=== PATIENT | female | born 1965 | race Caucasian/White ===

== ENCOUNTER 2019-10-23 10:26 | Emergency (ER) | payer OTHER ==
[2019-10-23 10:38] VITALS: BP 179/116; PULSE 94; O2SAT 100
[2019-10-23] MEDS ORDERED: Adacel Vial IM ONE ×2 (10:39→10:42)
--- NOTE | 2019-10-23 10:46 | ERPHSYRPT ---
- History of Present Illness Time Seen by Provider: 10/23/19 10:35 Source: patient Exam Limitations: no limitations Patient Subjective Stated Complaint: Pt was bit by a dog last night and injuring her left upper thigh on the posterior lateral side Triage Nursing Assessment: Pt brought self to the ER, raised bruised area is approx 7cm x 7cm with abrasions going through it, no puncture wounds are seen, pt rates overall pain as 5/10, no other issues at this time Physician History: Patient is a 54-year-old female presents to our ED for a tetanus booster. Patient states she was bitten by her dog at the proximal posterior lateral aspect of her left thigh. The dog had a collar however the patient was not familiar with the dog. Injury occurred yesterday evening. Patient is otherwise asymptomatic. She has some discomfort at the area of involvement. No bleeding occurred. No associated fever. No lower extremity numbness tingling or weakness. Symptoms are mild to moderate in intensity. Palpation reproduces s ymptoms. Patient is ambulatory with a normal gait pattern. Patient otherwise healthy. She voices no other complaints at this time. Timing/Duration: yesterday Severity: moderate Modifying Factors: Improves With: other (Palpation causes some discomfort.) Associated Symptoms: denies symptoms, No nausea, No vomiting, No abdominal pain, No shortness of breath, No heartburn, No diaphoresis, No cough, No chills, No chest pain, No fever, No headaches, No loss of appetite, No malaise, No syncope Allergies/Adverse Reactions: No Known Drug Allergies Allergy (Verified 10/23/19 10:38) Home Medications: Lisinopril 10 mg [Zestril 10 MG] 10 mg PO DAILY 10/23/19 [History] Omeprazole 20 mg PO DAILY 10/23/19 [History] Hx Tetanus, Diphtheria Vaccination/Date Given: Yes Hx Influenza Vaccination/Date Given: Yes Hx Pneumococcal Vaccination/Date Given: No Travel Risk - International Travel Have you traveled outside of the country in past 3 weeks: No - Coronavirus Screening Are you exhibiting any of the following symptoms?: No Close contact with a COVID-19 positive Pt in past 14-21 Days: No - Review of Systems Constitutional: No Symptoms, No Fever, No Chills Eyes: No Symptoms Ears, Nose, & Throat: No Symptoms Respiratory: No Symptoms, No Cough, No Dyspnea Cardiac: No Symptoms, No Chest Pain, No Edema, No Syncope Abdominal/Gastrointestinal: No Symptoms, No Abdominal Pain, No Nausea, No Vomiting, No Diarrhea Genitourinary Symptoms: No Symptoms, No Dysuria Musculoskeletal: No Symptoms, No Back Pain, No Neck Pain Skin: No Symptoms, No Rash Neurological: No Symptoms, No Dizziness, No Focal Weakness, No Sensory Changes Psychological: No Symptoms Endocrine: No Symptoms Hematologic/Lymphatic: No Symptoms Immunological/Allergic: No Symptoms All Other Systems: Reviewed and Negative - Past Medical History Pertinent Past Medical History: Yes Cardiac History: Hypertension - Past Surgical History Past Surgical History: Yes Gastrointestinal: Appendectomy - Social History Smoking Status: Current every day smoker Exposure to second hand smoke: Yes Drug Use: none Patient Lives Alone: Yes - Female History Hx Now: No - Nursing Vital Signs Nursing Vital Signs: Initial Vital Signs Pulse Rate 94 H 10/23/19 10:30 Blood Pressure 179/116 10/23/19 10:30 O2 Sat by Pulse Oximetry 100 10/23/19 10:30 Pain Scale Pain Intensity 5 - Physical Exam General Appearance: no apparent distress, alert Eye Exam: PERRL/EOMI, eyes nml inspection Ears, Nose, Throat Exam: normal ENT inspection, TMs normal, pharynx normal, moist mucous membranes Neck Exam: normal inspection, non-tender, supple, full range of motion Respiratory Exam: normal breath sounds, lungs clear, No respiratory distress Cardiovascular Exam: regular rate/rhythm, normal heart sounds, normal peripheral pulses Gastrointestinal/Abdomen Exam: soft, normal bowel sounds, No tenderness, No mass Back Exam: normal inspection, normal range of motion, No CVA tenderness, No vertebral tenderness Extremity Exam: normal inspection, normal range of motion, pelvis stable, other (Compartments are soft. Cap refill less than 2 seconds. There is a 7 x 7 cm bruise at the involved area. No puncture wounds. There are 3 superficial abrasions.) Neurologic Exam: alert, oriented x 3, cooperative, normal mood/affect, nml cerebellar function, nml station & gait, sensation nml, No motor deficits Skin Exam: normal color, warm, dry, No rash Lymphatic Exam: No adenopathy SpO2 Interpretation: normal SpO2: 100 O2 Delivery: Room Air - Course Nursing assessment & vital signs reviewed: Yes Ordered Tests: Medication Summary Discontinued Medications Generic Name Dose Route Start Last Admin Trade Name Freq PRN Reason Stop Dose Admin Diphtheria/Tetanus/Acell Pertussis 0.5 ml 10/23/19 10:39 10/23/19 10:42 Adacel Vial IM 10/23/19 10:40 0.5 ml .ONCE ONE Administration Diphtheria/Tetanus/Acell Pertussis Confirm 10/23/19 10:42 Adacel Vial Administered 10/23/19 10:43 Dose 0.5 ml IM .STK-MED ONE - Progress Progress: improved Progress Note: 10/23/19 10:47 Patient reassessed. She feels well. Patient declined pain medication. Patient only interested in a tetanus shot. We will write her a prescription for Augmentin in the event that she becomes symptomatic or develops signs of infection per patient request. Patient agrees to follow-up with her primary care doctor within 48 hours for reevaluation. Counseled pt/family regarding: diagnosis, need for follow-up - Departure Departure Disposition: Home Clinical Impression: Dog bite Condition: Stable Critical Care Time: No Referrals: ATUL HEREDIA MD [Primary Care Provider] - Additional Instructions: Discharge/Care Plan RO GILL was seen on 10/23/19 in the Emergency Room. The patient was counseled regarding Diagnosis,Lab results, Imaging studies, need for follow up and when to return to the Emergency Room. Prescriptions given: Discharge Note I have spoken with the patient and/or caregivers. I have explained the patient's condition, diagnosis and treatment plan based on the information available to me at this time. I have answered the patient's and/or caregiver's questions and addressed any concerns. The patient and/or caregivers have as good understanding of the patient's diagnosis, condition and treatment plan as can be expected at this point. The vital signs have been stable. The patient's condition is stable and appropriate for discharge from the emergency department. The patient will pursue further outpatient evaluation with the primary care physician or other designated or consulting physician as outlined in the discharge instructions. The patient and/or caregivers are agreeable to this plan of care and follow-up instructions have been explained in detail. The patient and/or caregivers have received these instruction. The patient/and or caregivers are aware that any significant change in condition or worsening of symptoms should prompt an immediate return to this or the closest emergency department or call 911.
== END 2019-10-23 11:07 | disposition home or self-care (01) ==
LOC: ED 10:26
DX: S70.312A Abrasion, left thigh, initial encounter (principal); S70.12XA Contusion of left thigh, initial encounter; W54.0XXA Bitten by dog, initial encounter; Y93.9 Activity, unspecified; Y92.9 Unspecified place or not applicable
CPT/HCPCS: 90471; 90715; 99283

== ENCOUNTER 2020-07-01 15:29 | Emergency (ER) | payer OTHER ==
[2020-07-01] MEDS ORDERED: TORAdol 30 mg Injection IM ONE (16:00)
[2020-07-01] MEDS ORDERED: TORAdol 30 mg Injection ONE (16:02)
[2020-07-01] MEDS ORDERED: DECADRON 10MG INJ. PO ONE (16:08)
[2020-07-01] MEDS ORDERED: DECADRON 10MG INJ. ONE (16:09)
--- NOTE | 2020-07-01 16:17 | ERPHSYRPT ---
- History of Present Illness Time Seen by Provider: 07/01/20 15:35 Source: patient Exam Limitations: no limitations Patient Subjective Stated Complaint: here for lower back 3 days now after twisitng the wrong way, she has tried tylenol , heat and cold Triage Nursing Assessment: pt alert, walked in, resp easy, skin w.d.p, gaurding back, no edema, Physician History: Patient is a 55-year-old female presents to our emergency department for evaluation of low back pain. Patient states she was turning down a mobile home 3 days ago when doing heavy lifting when she injured her back. Patient states her back's been sore. She has been applying cold pack to her back. Pain is not improved. Pain described as an ache that is localized. No radiation. No recent back procedures. No change in bowel bladder function. No fever. No saddle anesthesia. Symptoms are mild to moderate in intensity. Movement reproduces symptoms. Patient voices no other complaints or concerns at this time. Timing/Duration: day(s) (3 days ago) Method of Injury: bending, lifting, twisted Quality: dull Back Pain Location: lumbar spine Severity of Pain-Max: moderate Severity of Pain-Current: mild Modifying Factors: Improves With: movement Associated Symptoms: denies symptoms, No fever, No sweating, No urinary incontinence, No loss of bowel control, No constipation, No nausea, No vomiting, No problems urinating, No light-headedness, No dizziness, No numbness in legs/feet, No weakness, No sensory/motor loss Previous symptoms: no prior history Allergies/Adverse Reactions: No Known Drug Allergies Allergy (Verified 07/01/20 15:37) Home Medications: Lisinopril 10 mg [Zestril 10 MG] 10 mg PO DAILY 10/23/19 [History] Omeprazole 20 mg PO DAILY 10/23/19 [History] Bupropion HCl 150 mg Sr [Wellbutrin SR 150 MG] 1 ea DAILY 07/01/20 [History] Montelukast Sodium 10 mg [Singulair 10 MG] 10 mg PO DAILY 07/01/20 [History] Vits W-Ca,Fe,FA(<1Mg) [] 1 ea DAILY 07/01/20 [History] Terbinafine HCl [Lamisil] 1 ea DAILY 07/01/20 [History] Hx Tetanus, Diphtheria Vaccination/Date Given: No Hx Influenza Vaccination/Date Given: No Hx Pneumococcal Vaccination/Date Given: No Immunizations Up to Date: Yes Travel Risk - International Travel Have you traveled outside of the country in past 3 weeks: No - Coronavirus Screening Are you exhibiting any of the following symptoms?: No Close contact with a COVID-19 positive Pt in past 14-21 Days: No - Vaccine Status Have you recieved a Covid-19 vaccination: Yes [employer]: [employer] - Review of Systems Constitutional: No Symptoms, No Fever, No Chills Eyes: No Symptoms Ears, Nose, & Throat: No Symptoms Respiratory: No Symptoms, No Cough, No Dyspnea Cardiac: No Symptoms, No Chest Pain, No Edema, No Syncope Abdominal/Gastrointestinal: No Symptoms, No Abdominal Pain, No Nausea, No Vomiting, No Diarrhea Genitourinary Symptoms: No Symptoms, No Dysuria Musculoskeletal: No Symptoms, No Back Pain, No Neck Pain Skin: No Symptoms, No Rash Neurological: No Symptoms, No Dizziness, No Focal Weakness, No Sensory Changes Psychological: No Symptoms Endocrine: No Symptoms Hematologic/Lymphatic: No Symptoms Immunological/Allergic: No Symptoms All Other Systems: Reviewed and Negative - Past Medical History Pertinent Past Medical History: Yes Cardiac History: Hypertension Other Medical History: toe fungus - Past Surgical History Past Surgical History: Yes Gastrointestinal: Appendectomy - Social History Smoking Status: Current every day smoker Exposure to second hand smoke: Yes Drug Use: none Patient Lives Alone: Yes - Female History Hx Last Menstrual Period: may 30 Hx Now: No - Nursing Vital Signs Nursing Vital Signs: Initial Vital Signs Temperature 97.8 F 07/01/20 15:30 Pulse Rate 105 H 07/01/20 15:30 Respiratory Rate 14 07/01/20 15:30 Blood Pressure 138/95 07/01/20 15:30 O2 Sat by Pulse Oximetry 99 07/01/20 15:30 Pain Scale Pain Intensity [] 10 Pain Intensity 7 - Physical Exam General Appearance: no apparent distress, alert Eye Exam: PERRL/EOMI, eyes nml inspection Ears, Nose, Throat Exam: normal ENT inspection Neck Exam: normal inspection, non-tender, supple, full range of motion, No meningismus, No midline tenderness Respiratory Exam: normal breath sounds, lungs clear, No respiratory distress Cardiovascular Exam: regular rate/rhythm, normal heart sounds Gastrointestinal Exam: soft, No tenderness, No mass, No guarding, No rebound Extremity Exam: normal inspection, normal range of motion, No calf tenderness, No pedal edema Neurologic Exam: alert, oriented x 3, cooperative, director clinical data II-XII nml as tested, normal mood/affect, nml station & gait, sensation nml, No motor deficits Skin Exam: normal color, warm, dry, No rash SpO2 Interpretation: normal SpO2: 99 O2 Delivery: Room Air - Course Nursing assessment & vital signs reviewed: Yes - Radiology Exams L-Spine X-ray Interpretation: Teleradiologist Report (Yadi, degenerative disc disease, disc space loss) Ordered Tests: Active Orders 24 hr Category Date Time Status LUMBAR LIMITED (2 OR 3 VIEWS) Stat Exams 07/01/20 16:09 Completed CULTURE,URINE Stat Lab 07/01/20 16:45 Received UA W/RFX UR CULTURE Stat Lab 07/01/20 16:45 Completed Medication Summary Discontinued Medications Generic Name Dose Route Start Last Admin Trade Name Marcellus PRN Reason Stop Dose Admin Dexamethasone Sodium Phosphate 10 mg 07/01/20 16:08 07/01/20 16:10 Decadron 10mg Inj. PO 07/01/20 16:09 10 mg STAT ONE Administration Dexamethasone Sodium Phosphate Confirm 07/01/20 16:09 Decadron 10mg Inj. Administered 07/01/20 16:10 Dose 10 mg .ROUTE .STK-MED ONE Ketorolac Tromethamine 30 mg 07/01/20 16:00 07/01/20 16:02 Toradol 30 Mg Injection IM 07/01/20 16:01 30 mg STAT ONE Administration Ketorolac Tromethamine Confirm 07/01/20 16:02 Toradol 30 Mg Injection Administered 07/01/20 16:03 Dose 30 mg .ROUTE .STK-MED ONE Nitrofurantoin Macrocrystals 100 mg 07/01/20 17:22 Macrobid 100mg Capsule PO 07/01/20 17:23 STAT ONE Lab/Rad Data: Laboratory Results 07/01/20 Range/Units 16:45 Urine Color [place] (YELLOW) Urine Appearance CLOUDY (CLEAR) Urine pH 5.0 (5-6) Ur Specific [place] 1.033 (1.005-1.025) Urine Protein 100 (Negative) Urine Ketones NEGATIVE (NEGATIVE) Urine Blood LARGE (0-5) Leo/ul Urine Nitrite NEGATIVE (NEGATIVE) Urine Bilirubin MODERATE (NEGATIVE) Urine Urobilinogen 4 (0-1) mg/dL Ur Leukocyte Esterase TRACE (NEGATIVE) Urine WBC (Auto) 16-25 (0-5) /HPF Urine RBC (Auto) 26-50 (0-2) /HPF U Epithel Cells (Auto) MODERATE (FEW) /HPF Urine Bacteria (Auto) FEW (NEGATIVE) /HPF Urine Mucus (Auto) MANY (NEGATIVE) /HPF Urine Culture Reflexed YES (NO) Urine Glucose NEGATIVE (NEGATIVE) mg/dL - Progress Progress: improved Progress Note: 07/01/20 16:55 Patient reassessed. Pain improved. Vitals stable. X-ray lumbar spine negative for acute pathology. UA shows urinary tract infection. Prescription for Macrobid and Toradol forwarded to patient's pharmacy. Patient is ready for discharge. Will discharge home. Patient agrees to follow-up with her primary care doctor within 48 hours for reevaluation. 07/01/20 17:21 Counseled pt/family regarding: lab results, diagnosis, need for follow-up, rad results - Departure Departure Disposition: Home Clinical Impression: Lumbosacral strain, Osteopenia, Degenerative disc disease, UTI (urinary tract infection) Condition: Stable Critical Care Time: No Referrals: ATUL HEREDIA MD [Primary Care Provider] - Additional Instructions: Discharge/Care Plan RO GILL was seen on 07/01/20 in the Emergency Room. The patient was counseled regarding Diagnosis,Lab results, Imaging studies, need for follow up and when to return to the Emergency Room. Prescriptions given: Discharge Note I have spoken with the patient and/or caregivers. I have explained the patient's condition, diagnosis and treatment plan based on the information available to me at this time. I have answered the patient's and/or caregiver's questions and addressed any concerns. The patient and/or caregivers have as good understanding of the patient's diagnosis, condition and treatment plan as can be expected at this point. The vital signs have been stable. The patient's condition is stable and appropriate for discharge from the emergency department. The patient will pursue further outpatient evaluation with the primary care physician or other designated or consulting physician as outlined in the discharge instructions. The patient and/or caregivers are agreeable to this plan of care and follow-up instructions have been explained in detail. The patient and/or caregivers have received these instruction. The patient/and or caregivers are aware that any significant change in condition or worsening of symptoms should prompt an immediate return to this or the closest emergency department or call 911. Prescriptions: Nitrofurantoin Macro 100 mg [Macrobid 100MG Capsule] 100 mg PO BID 7 Days #14 capsule Ketorolac Tromethamine [Toradol] 10 mg PO TID 5 Days #15 tablet
[2020-07-01 16:28] VITALS: BP 133/95
--- NOTE | 2020-07-01 16:34 | XRAY ---
Indication: Low back pain 3 days. No known injury. Comparison: None 3 view lumbar spine demonstrates 5 lumbar segments in normal alignment with mild osteopenia and mild/moderate L1-L3 degenerative disc space loss with endplate sclerosis/spurring. No other bony, articular, or soft tissue abnormalities.
[2020-07-01 17:07] LABS: Appearance CLOUDY (CLEAR); Bacteria FEW /HPF (NEGATIVE); Bilirubin MODERATE (NEGATIVE); Blood LARGE Ery/ul (0-5); Epithelial Cells MODERATE /HPF (FEW); Glucose NEGATIVE (NEGATIVE); Ketones NEGATIVE (NEGATIVE); Leukocyte Esterase TRACE (NEGATIVE); Mucus MANY /HPF (NEGATIVE); Nitrite NEGATIVE (NEGATIVE); Protein,Urine Dip 100 (Negative); RBC 26-50 /HPF (0-2); Specific Gravity 1.033 (1.005-1.025); Urobilinogen 4 mg/dL (0-1)
[2020-07-01 17:08] VITALS: PULSE 74
[2020-07-01 17:13] VITALS: O2SAT 99
[2020-07-01] MEDS ORDERED: Macrobid 100MG Capsule PO ONE (17:22)
[2020-07-01] MEDS ORDERED: Macrobid 100MG Capsule ONE (17:29)
== END 2020-07-01 17:43 | disposition home or self-care (01) ==
LOC: ED 15:29
DX: S39.012A Strain of muscle, fascia and tendon of lower back, initial encounter (principal); M85.80 Other specified disorders of bone density and structure, unspecified site; M51.36 Other intervertebral disc degeneration, lumbar region; N39.0 Urinary tract infection, site not specified
CPT/HCPCS: 72100; 81001; 87086; 96372; 99284; J1100; J1885; A9270-GY

== ENCOUNTER 2020-07-03 05:35 | Inpatient (IN) | payer OTHER ==
--- NOTE | 2020-07-03 05:44 | ERPHSYRPT ---
- History of Present Illness Source: patient Exam Limitations: clinical condition Timing/Duration: today, worse Method of Injury: bending, lifting, twisted Quality: aching Back Pain Location: lumbar spine Severity of Pain-Max: moderate Severity of Pain-Current: moderate Modifying Factors: Improves With: movement Associated Symptoms: urinary incontinence, numbness in legs/feet, lower back pain, No sensory/motor loss, No tingling in legs/feet Previous symptoms: same symptoms as today, recently seen, recently treated Hx Tetanus, Diphtheria Vaccination/Date Given: No Hx Influenza Vaccination/Date Given: No Hx Pneumococcal Vaccination/Date Given: No <ZAKIYA STEIN - Last Filed: 07/03/20 06:56> <ASHLEY MAGAÑA - Last Filed: 07/03/20 09:23> - History of Present Illness Time Seen by Provider: 07/03/20 05:44 Physician History: This is a 55-year-old white female who has history of hypertension and gastroesophageal reflux disease and was seen yesterday (07/01/2020) for the same complaint of back pain. Patient was diagnosed with degenerative disc disease, lumbosacral pain and urinary tract infection. She was given a prescription for Macrobid and Toradol. She did not fill any of these medications. She has had back pain for 4 days now. The original injury was doing heavy lifting. This was performed 4 days ago. She describes it as a severe ache without radiation no recent back surgeries. Patient has no change in her bowel movements or bladder function. Lumbar x-rays were negative. She has not reinjured her back. Patient is a daily smoker of cigarettes. During her emergency room visit 24 hours ago, patient was given Toradol which helped her pain well. (ZAKIYA STEIN) Allergies/Adverse Reactions: No Known Drug Allergies Allergy (Verified 07/01/20 15:37) Home Medications: Lisinopril 10 mg [Zestril 10 MG] 10 mg PO DAILY 10/23/19 [History] Omeprazole 20 mg PO DAILY 10/23/19 [History] Bupropion HCl 150 mg Sr [Wellbutrin SR 150 MG] 1 ea DAILY 07/01/20 [History] Montelukast Sodium 10 mg [Singulair 10 MG] 10 mg PO DAILY 07/01/20 [History] Vits W-Ca,Fe,FA(<1Mg) [] 1 ea DAILY 07/01/20 [History] Terbinafine HCl [Lamisil] 1 ea DAILY 07/01/20 [History] Travel Risk - International Travel Have you traveled outside of the country in past 3 weeks: No - Coronavirus Screening Are you exhibiting any of the following symptoms?: No Close contact with a COVID-19 positive Pt in past 14-21 Days: No - Vaccine Status Have you recieved a Covid-19 vaccination: Yes Prn Occupational Therapist: [employer] <ZAKIYA STEIN - Last Filed: 07/03/20 06:56> - Review of Systems Constitutional: No Symptoms Eyes: No Symptoms Respiratory: No Symptoms Cardiac: No Symptoms Abdominal/Gastrointestinal: No Symptoms Genitourinary Symptoms: No Symptoms Musculoskeletal: Back Pain Skin: No Symptoms Neurological: No Symptoms Psychological: No Symptoms Endocrine: No Symptoms Hematologic/Lymphatic: No Symptoms Immunological/Allergic: No Symptoms All Other Systems: Reviewed and Negative <ZAKIYA STEIN - Last Filed: 07/03/20 06:56> - Past Medical History Pertinent Past Medical History: Yes Cardiac History: Hypertension Other Medical History: toe fungus - Past Surgical History Past Surgical History: Yes Gastrointestinal: Appendectomy - Social History Smoking Status: Current every day smoker Exposure to second hand smoke: Yes Drug Use: none Patient Lives Alone: Yes <ZAKIYA STEIN - Last Filed: 07/03/20 06:56> - Physical Exam General Appearance: moderate distress, alert, anxiety Eye Exam: PERRL/EOMI Ears, Nose, Throat Exam: normal ENT inspection, moist mucous membranes Neck Exam: normal inspection, non-tender, supple, full range of motion Respiratory Exam: normal breath sounds, lungs clear, airway intact, No chest tenderness, No respiratory distress Cardiovascular Exam: regular rate/rhythm, normal heart sounds, normal peripheral pulses Gastrointestinal Exam: soft, normal bowel sounds, No tenderness Pelvic Exam: not done Back Exam: normal inspection, decreased range of motion, muscle spasm, No CVA tenderness, No vertebral tenderness Extremity Exam: normal inspection, normal range of motion, pelvis stable Neurologic Exam: alert, oriented x 3, cooperative, network security engineer II-XII nml as tested Skin Exam: normal color, warm, dry Lymphatic Exam: No adenopathy SpO2 Interpretation: normal O2 Delivery: Room Air <ZAKIYA STEIN - Last Filed: 07/03/20 06:56> - Nursing Vital Signs Nursing Vital Signs: Initial Vital Signs Temperature 98.7 F 07/03/20 05:36 Pulse Rate 120 H 07/03/20 05:36 Respiratory Rate 16 07/03/20 05:36 Blood Pressure 158/93 07/03/20 05:36 O2 Sat by Pulse Oximetry 100 07/03/20 05:36 Pain Scale Pain Intensity [Lower Back] 10 Pain Intensity 0 Ordered Tests: Active Orders 24 hr Category Date Time Status IV Insertion STAT Care 07/03/20 05:53 Active ABDOMEN AND PELVIS W/0 CONTRAS [CT] Stat Exams 07/03/20 06:54 Taken BLOOD CULTURE Stat Lab 07/03/20 07:05 Received CBC W DIFF Stat Lab 07/03/20 05:45 Completed CMP Stat Lab 07/03/20 05:45 Completed LIPASE Stat Lab 07/03/20 05:45 Completed Lactic Acid Stat Lab 07/03/20 06:18 Completed Lactic Acid Stat Lab 07/03/20 08:30 Received Manual Differential NC Stat Lab 07/03/20 05:45 Completed Urine Triage Profile Stat Lab 07/03/20 07:54 Ordered Medication Summary Discontinued Medications Generic Name Dose Route Start Last Admin Trade Name Matiasq PRN Reason Stop Dose Admin Hydromorphone HCl 1 mg 07/03/20 05:53 07/03/20 06:06 Hydromorphone 1 Mg/Ml Injection IV 07/03/20 05:54 1 mg STAT ONE Administration Hydromorphone HCl Confirm 07/03/20 05:58 Hydromorphone 1 Mg/Ml Injection Administered 07/03/20 05:59 Dose 1 mg .ROUTE .STK-MED ONE Ceftriaxone Sodium/Dextrose 1 g in 50 mls @ 100 mls/hr 07/03/20 05:54 07/03/20 07:38 Rocephin 1 Gm-D5w 50 Ml Bag IV 07/03/20 06:23 Infused STAT STA Infusion Sodium Chloride 1,000 mls @ 999 mls/hr 07/03/20 06:00 07/03/20 07:38 Sodium Chloride 0.9% 1000 Ml IV 07/03/20 07:00 Infused .Q1H1M STA Infusion Sodium Chloride Confirm 07/03/20 05:58 Sodium Chloride 0.9% 1000 Ml Administered 07/03/20 05:59 Dose 1,000 mls @ ud .ROUTE .STK-MED ONE Ceftriaxone Sodium/Dextrose Confirm 07/03/20 05:59 Rocephin 1 Gm-D5w 50 Ml Bag Administered 07/03/20 06:00 Dose 1 g in 50 mls @ ud IV .STK-MED ONE Sodium Chloride 1,000 mls @ 999 mls/hr 07/03/20 06:53 07/03/20 08:53 Sodium Chloride 0.9% 1000 Ml IV 07/03/20 07:53 Infused .Q1H1M STA Infusion Sodium Chloride Confirm 07/03/20 07:31 Sodium Chloride 0.9% 1000 Ml Administered 07/03/20 07:32 Dose 1,000 mls @ ud .ROUTE .STK-MED ONE Methylprednisolone Sodium Succinate 125 mg 07/03/20 05:54 07/03/20 06:05 Solu-Medrol 125 Mg IV 07/03/20 05:55 125 mg STAT ONE Administration Methylprednisolone Sodium Succinate Confirm 07/03/20 05:58 Solu-Medrol 125 Mg Administered 07/03/20 05:59 Dose 125 mg .ROUTE .STK-MED ONE Ondansetron HCl 4 mg 07/03/20 05:53 07/03/20 06:05 Zofran 4 Mg/2 Ml Vial IV 07/03/20 05:54 4 mg STAT ONE Administration Ondansetron HCl Confirm 07/03/20 05:58 Zofran 4 Mg/2 Ml Vial Administered 07/03/20 05:59 Dose 4 mg .ROUTE .STK-MED ONE Lab/Rad Data: Laboratory Result Diagrams 07/03/20 05:45 07/03/20 05:45 Laboratory Results 07/03/20 07/03/20 07/03/20 Range/Units 06:18 05:45 05:45 WBC 17.2 H (4.0-10.5) K/mm3 RBC 5.52 H (4.1-5.4) M/mm3 Hgb 12.7 (12.0-16.0) gm/dl Hct 37.8 (35-47) % MCV 68.5 L (78-100) fl MCH 23.0 L (26-32) pg MCHC 33.6 (32-36) g/dl RDW 14.7 H (11.5-14.0) % Plt Count 77 L (150-450) K/mm3 MPV 10.4 (7.5-11.0) fl Segmented Neutrophils 90 H (36.0-66.0) % Band Neutrophils 6 H (0.0-2.0) % Lymphocytes (Manual) 1 L (24-44) % Monocytes (Manual) 3 (0.0-12.0) % Hypochromia 1+ Platelet Estimate DECREASED (NORMAL) RBC Morphology ABNORMAL Sodium 127 L (137-145) mmol/L Potassium 3.9 (3.5-5.1) mmol/L Chloride 93 L (98-107) mmol/L Carbon Dioxide 24 (22-30) mmol/L Anion Gap 13.8 (5-15) MEQ/L BUN 20 H (7-17) mg/dL Creatinine 0.77 (0.52-1.04) mg/dL Estimated GFR > 60.0 ML/MIN Glucose 135 H (74-106) mg/dL Lactic Acid 2.2 H (0.4-2.0) Calcium 9.8 (8.4-10.2) mg/dL Total Bilirubin 1.70 H (0.2-1.3) mg/dL AST 67 H (14-36) U/L ALT 55 H (0-35) U/L Alkaline Phosphatase 338 H (38-126) U/L Serum Total Protein 6.2 L (6.3-8.2) g/dL Albumin 3.1 L (3.5-5.0) g/dL Lipase 13 L (23-300) U/L - Progress Progress: improved, pain not gone completely, re-examined Counseled pt/family regarding: lab results, diagnosis, need for follow-up <ZAKIYA STEIN - Last Filed: 07/03/20 06:56> - Progress Counseled pt/family regarding: rad results <ASHLEY MAGAÑA - Last Filed: 07/03/20 09:23> - Progress Progress Note: 07/03/20 06:25 Patient stated that this episode of pain began approximately 5 PM yesterday which was 13 hours before she returned to the emergency department. She also did not supervisor picking crew her prescriptions. The reason she gave her both was that she did not have a ride until this morning. Patient denies illicit drug use. 07/03/20 06:56 Patient states her back pain has improved. She is more comfortable. Patient's mouth is very dry she has an elevated lactic acid level. She has some elevated liver function test. She has bilateral flank pain. I will hydrate her well with a second liter of fluid. We will check a hepatitis panel and do a CAT scan of her abdomen as well. I am signing this patient out in transferring the care of this patient to Dr. Magaña at shift change. I have reviewed the patient's condition, pending lab and x-ray studies with him. (ZAKIYA STEIN) 07/03/20 09:20 Patient is checked out to me at shift change from Dr. Stein with pending CT. Patient presented with Bilateral flank pain/low back pain. Does not have any midline tenderness on my evaluation. Negative neuro exam in lower extremities. Patient does have documented UTI on yesterday's evaluation and has a white count of 17, given a dose of Rocephin Patient chemistry profile showed mild hyponatremia and mildly elevated liver enzymes. CT abdomen pelvis without contrast is negative for any acute intra- abdominal findings. With her pain in the bilateral flank and UTI I believe patient is having ascending urinary tract infection and would benefit with IV antibiotics and fluids and symptomatic treatment for pain. Discussed with and patient is accepted for admission. (ASHLEY MAGAÑA) - Departure Departure Disposition: Home Critical Care Time: No <ZAKIYA STEIN - Last Filed: 07/03/20 06:56> - Departure Departure Disposition: Observation <ASHLEY MAGAÑA - Last Filed: 07/03/20 09:23> - Departure Clinical Impression: Recurrent low back pain, Acute UTI (urinary tract infection), Hyponatremia, Elevated transaminase level Condition: Stable Referrals: ATUL HEREDIA MD [Primary Care Provider] - Additional Instructions: Go to your pharmacy this morning and supervisor picking crew your Toradol and nitrofurantoin prescriptions. Follow-up with the primary care physician for further management of your chronic back pain.
[2020-07-03] MEDS ORDERED: Zofran 4 MG/2 ML VIAL IV ONE (05:53)
[2020-07-03] MEDS ORDERED: Hydromorphone 1 mg/ml Injection IV ONE (05:53)
[2020-07-03] MEDS ORDERED: ROCEPHIN 1 Gm-D5w 50 ml Bag** 1 G/50 ML IVPB IV STA (05:54)
[2020-07-03] MEDS ORDERED: solu-MEDROL 125 MG IV ONE (05:54)
[2020-07-03] MEDS ORDERED: Hydromorphone 1 mg/ml Injection ONE (05:58)
[2020-07-03] MEDS ORDERED: Sodium Chloride 0.9% 1000 ML 1,000 ML ONE ×2 (05:58→07:31)
[2020-07-03] MEDS ORDERED: solu-MEDROL 125 MG ONE (05:58)
[2020-07-03] MEDS ORDERED: Zofran 4 MG/2 ML VIAL ONE (05:58)
[2020-07-03] MEDS ORDERED: ROCEPHIN 1 Gm-D5w 50 ml Bag** 1 G/50 ML IVPB IV ONE (05:59)
[2020-07-03] MEDS ORDERED: Sodium Chloride 0.9% 1000 ML 1,000 ML IV STA ×2 (06:00→06:53)
[2020-07-03 06:10] LABS: Hematocrit 37.8 % (35-47); Hemoglobin 12.7 gm/dl (12.0-16.0); Mean Cell Volume 68.5 fl (78-100); Mean Corpuscular Hgb Concent. 33.6 g/dl (32-36); Mean Platelet Volume 10.4 fl (7.5-11.0); Platelet Count 77 K/mm3 (150-450); Red Blood Count 5.52 M/mm3 (4.1-5.4); Red Cell Distribution Width 14.7 % (11.5-14.0); White Blood Count 17.2 K/mm3 (4.0-10.5)
[2020-07-03 06:17] LABS: ALBUMIN 3.1 g/dL (3.5-5.0); ALKALINE PHOSPHATASE 338 U/L (38-126); ANION GAP 13.8 MEQ/L (5-15); BLOOD UREA NITROGEN 20 mg/dL (7-17); CHLORIDE 93 mmol/L (98-107); Calcium 9.8 mg/dL (8.4-10.2); Carbon Dioxide 24 mmol/L (22-30); Creatinine 1 0.77 mg/dL (0.52-1.04); EST GLOMERULAR FILTRATION RATE > 60.0 ML/MIN; Glucose 135 mg/dL (74-106); LIPASE 13 U/L (23-300); Potassium 3.9 mmol/L (3.5-5.1); SGOT/AST 67 U/L (14-36); SGPT/ALT 55 U/L (0-35); SODIUM 127 mmol/L (137-145); Total Protein 6.2 g/dL (6.3-8.2)
[2020-07-03 06:38] LABS: BAND 6 % (0.0-2.0); Hypochromia 1+; Lymphocytes 1 % (24-44); Monocyte 3 % (0.0-12.0); Neutrophils 90 % (36.0-66.0); Platelet Estimate DECREASED (NORMAL); Total Cells Counted 100
[2020-07-03 09:23] LABS: Amphetamine,Urine POSITIVE (NEGATIVE); Barbiturate,Urine NEGATIVE (NEGATIVE); Benzodiazepine,Urine NEGATIVE (NEGATIVE); Cocaine,Urine NEGATIVE (NEGATIVE); Methadone,Urine NEGATIVE (NEGATIVE); Opiate,Urine POSITIVE (NEGATIVE); PCP,Urine NEGATIVE (NEGATIVE); THC,Urine NEGATIVE (NEGATIVE)
[2020-07-03 10:42] LABS: INFLUENZA A NEGATIVE (NEGATIVE); INFLUENZA B NEGATIVE (NEGATIVE); RESPIRATORY SYNCTIAL VIRUS NEGATIVE (Negative)
[2020-07-03] MEDS ORDERED: Zofran 4 MG/2 ML VIAL IV PRN (11:25)
[2020-07-03] MEDS ORDERED: PROTONIX 40 MG IV IV SCH (11:25)
[2020-07-03] MEDS ORDERED: DUONEB 0.5-3 MG/3 ml Neb IH PRN (11:25)
--- NOTE | 2020-07-03 12:18 | XRAY ---
Indication: Low back and bilateral flank pain. Multiple contiguous axial images obtained through the abdomen and pelvis without contrast using renal stone protocol. Comparison: July 04, 2017. Lung bases again demonstrates bibasilar dependent atelectasis and lingula calcified granuloma. Heart is not enlarged. Several images slightly degraded by respiration artifact. No renal calculus or evidence for obstructive uropathy in either system. Noncontrasted stomach and bowel loops appear nonobstructed. Appendectomy reported. No free fluid/air. Remaining liver, gallbladder, pancreas, spleen, adrenal glands, kidneys, ureters, bladder, uterus, and aorta appear unremarkable for noncontrast exam. Osseous structures intact with progressive worsening mild/moderate T12-L3 degenerative disc disease. Impression: 1. Respiration artifact. 2. Negative renal calculus or evidence for obstructive uropathy. 3. No new/acute intra-abdominal/pelvic abnormalities on this noncontrast exam. Comment: Preliminary interpretation was made by [facility]. No critical discrepancy.
[2020-07-03] MEDS: Sodium Chloride 0.9% 1000 ML 1,000 ML IV SCH ×2 (12:42→20:27)
[2020-07-03] MEDS: ROCEPHIN 1 Gm-D5w 50 ml Bag** 1 G/50 ML IVPB IV SCH (12:49)
[2020-07-03] MEDS ORDERED: VENTOLIN COMMON CANISTER IH PRN (14:24)
[2020-07-03] MEDS: TYLENOL 325 MG PO PRN ×2 (17:07→21:44)
[2020-07-03] MEDS: MORPHINE SULFATE 2 MG INJ IV PRN (22:40)
[2020-07-04] MEDS ORDERED: MOTRIN 400 MG PO ONE
[2020-07-04] MEDS: Sodium Chloride 0.9% 1000 ML 1,000 ML IV SCH ×3 (03:44→21:01)
[2020-07-04 06:08] LABS: Hematocrit 33.6 % (35-47); Hemoglobin 11.3 gm/dl (12.0-16.0); Mean Corpuscular Hemoglobin 23.2 pg (26-32); Mean Corpuscular Hgb Concent. 33.6 g/dl (32-36); Red Blood Count 4.87 M/mm3 (4.1-5.4); Red Cell Distribution Width 14.9 % (11.5-14.0); White Blood Count 23.5 K/mm3 (4.0-10.5)
[2020-07-04 06:21] LABS: ALBUMIN 2.4 g/dL (3.5-5.0); ALKALINE PHOSPHATASE 240 U/L (38-126); BLOOD UREA NITROGEN 27 mg/dL (7-17); CHLORIDE 100 mmol/L (98-107); Calcium 8.8 mg/dL (8.4-10.2); Carbon Dioxide 22 mmol/L (22-30); Creatinine 1 0.62 mg/dL (0.52-1.04); EST GLOMERULAR FILTRATION RATE > 60.0 ML/MIN; Glucose 138 mg/dL (74-106); SGOT/AST 51 U/L (14-36); SGPT/ALT 41 U/L (0-35); SODIUM 126 mmol/L (137-145); Total Protein 5.1 g/dL (6.3-8.2)
[2020-07-04 06:23] LABS: Potassium 3.9 mmol/L (3.5-5.1)
[2020-07-04 06:27] LABS: ANION GAP 7.9 MEQ/L (5-15)
[2020-07-04 08:00] LABS: Platelet Count 37 K/mm3 (150-450)
[2020-07-04 08:04] LABS: BAND 7 % (0.0-2.0); Lymphocytes 4 % (24-44); Monocyte 7 % (0.0-12.0); Neutrophils 82 % (36.0-66.0); Platelet Estimate DECREASED (NORMAL); Total Cells Counted 100
[2020-07-04 08:05] LABS: Hypochromia 1+
--- NOTE | 2020-07-04 08:25 | PCM.HP ---
History of Present Illness - Chief Complaint Chief Complaint: back pain for 3-4 days History of Present Illness: is a 55 year old female.who has history of hypertension and gastroesophageal reflux disease and was seen yesterday (07/01/2020) for the same complaint of back pain. Patient was diagnosed with degenerative disc disease, lumbosacral pain and urinary tract infection. She was given a prescription for Macrobid and Toradol. She did not fill any of these medications. She has had back pain for 4 days now. The original injury was doing heavy lifting. This was performed 4 days ago. She describes it as a severe ache without radiation no recent back surgeries. Patient has no change in her bowel movements or bladder function. Lumbar x-rays were negative. She has not reinjured her back. Patient is a daily smoker of cigarettes. During her emergency room visit 24 hours ago, patient was given Toradol which helped her pain well. - Review of Systems Constitutional: No Fever, No Chills Eyes: No Symptoms Ears, Nose, & Throat: No Symptoms Respiratory: No Cough, No Short Of Breath Cardiac: No Chest Pain, No Edema, No Syncope Abdominal/Gastrointestinal: No Abdominal Pain, No Nausea, No Vomiting, No Diarrhea Genitourinary Symptoms: Dysuria Musculoskeletal: Back Pain, No Neck Pain Skin: No Rash Neurological: No Dizziness, No Focal Weakness, No Sensory Changes Psychological: No Symptoms Endocrine: No Symptoms Hematologic/Lymphatic: No Symptoms Immunological/Allergic: No Symptoms Medications & Allergies Home Medications: Home Medication List Lisinopril 10 mg [Zestril 10 MG] 10 mg PO DAILY 10/23/19 [History Confirmed 07/03/20] Omeprazole 20 mg PO DAILY 10/23/19 [History Confirmed 07/03/20] Bupropion HCl 150 mg Sr [Wellbutrin SR 150 MG] 1 ea PO DAILY 07/01/20 [History Confirmed 07/03/20] Ketorolac Tromethamine [Toradol] 10 mg PO TID 5 Days #15 tablet 07/01/20 [Rx Confirmed 07/03/20] Montelukast Sodium 10 mg [Singulair 10 MG] 10 mg PO DAILY 07/01/20 [History Confirmed 07/03/20] Nitrofurantoin Macro 100 mg [Macrobid 100MG Capsule] 100 mg PO BID 7 Days #14 capsule 07/01/20 [Rx Confirmed 07/03/20] Vits W-Ca,Fe,FA(<1Mg) [] 1 ea PO DAILY 07/01/20 [History Confirmed 07/03/20] Terbinafine HCl [Lamisil] 1 ea PO DAILY 07/01/20 [History Confirmed 07/03/20] Allergies/Adverse Reactions: Allergies Allergy/AdvReac Type Severity Reaction Status Date / Time No Known Drug Allergies Allergy Verified 07/01/20 15:37 - Past Medical History Past Medical History: Yes Neurological History: No Pertinent History ENT History: No Pertinent History Cardiac History: Hypertension Respiratory History: COPD Endocrine Medical History: No Pertinent History Musculoskelatal History: Other GI Medical History: GERD History: No Pertinent History Pyscho-Social History: Other Reproductive Disorders: Menstrual Problems, Other Comment: toe fungus. HX of dislocated L shoulder. "large mood swings and can be combative", reported pt's mother. Anemia. STD. - Female History Are you now?: No - Past Surgical History Past Surgical History: Yes GI Surgical History: Appendectomy Female Surgical History: Other Other Surgical History: ovarectomy times one. - Social History Smoking Status: Current every day smoker Exposure to second hand smoke: Yes Alcohol: None Drug Use: none - Physical Exam Vital Signs: Vital Signs - 24 hr Temp Pulse Resp BP Pulse Ox 07/04/20 07:52 97.8 F 90 30 H 142/86 96 07/04/20 06:45 87 16 99 07/03/20 23:35 98.1 F 95 H 20 142/78 100 07/03/20 19:38 84 18 97 07/03/20 19:27 98.8 F 103 H 18 120/76 98 07/03/20 16:00 99.6 F 108 H 16 132/80 98 07/03/20 13:00 101 H 16 97 07/03/20 11:59 98.2 F 102 H 16 119/79 97 07/03/20 11:35 98.2 F 102 H 16 119/79 97 07/03/20 10:29 102 H 18 131/96 97 07/03/20 09:32 110 H 18 136/77 95 07/03/20 08:30 107 H 20 115/71 94 L General Appearance: no apparent distress, alert Neurologic Exam: alert, oriented x 3, cooperative, normal mood/affect, nml cerebellar function, nml station & gait, sensation nml, No motor deficits Eye Exam: PERRL/EOMI, eyes nml inspection Ears, Nose, Throat Exam: normal ENT inspection, TMs normal, pharynx normal, moist mucous membranes Neck Exam: normal inspection, non-tender, supple, full range of motion Respiratory Exam: normal breath sounds, lungs clear, No respiratory distress Cardiovascular Exam: regular rate/rhythm, normal heart sounds, normal peripheral pulses Gastrointestinal/Abdomen Exam: soft, normal bowel sounds, No tenderness, No mass Back Exam: normal inspection, normal range of motion, CVA tenderness, muscle spasm, No vertebral tenderness, No point tenderness Extremity Exam: normal inspection, normal range of motion, pelvis stable Skin Exam: normal color, warm, dry, No rash Lymphatic Exam: No adenopathy Results - Labs Lab/Micro Results: Lab Results-Last 24 Hours 07/03/20 07/03/20 07/03/20 Range/Units 05:47 08:30 09:00 WBC (4.0-10.5) K/mm3 RBC (4.1-5.4) M/mm3 Hgb (12.0-16.0) gm/dl Hct (35-47) % MCV (78-100) fl MCH (26-32) pg MCHC (32-36) g/dl RDW (11.5-14.0) % Plt Count (150-450) K/mm3 Segmented Neutrophils (36.0-66.0) % Band Neutrophils (0.0-2.0) % Lymphocytes (Manual) (24-44) % Monocytes (Manual) (0.0-12.0) % Hypochromia Platelet Estimate (NORMAL) RBC Morphology Sodium (137-145) mmol/L Potassium (3.5-5.1) mmol/L Chloride (98-107) mmol/L Carbon Dioxide (22-30) mmol/L Anion Gap (5-15) MEQ/L BUN (7-17) mg/dL Creatinine (0.52-1.04) mg/dL Estimated GFR ML/MIN Glucose (74-106) mg/dL Lactic Acid 0.7 (0.4-2.0) Calcium (8.4-10.2) mg/dL Total Bilirubin (0.2-1.3) mg/dL AST (14-36) U/L ALT (0-35) U/L Alkaline Phosphatase (38-126) U/L Serum Total Protein (6.3-8.2) g/dL Albumin (3.5-5.0) g/dL Urine Opiates Level POSITIVE (NEGATIVE) Ur Methadone NEGATIVE (NEGATIVE) Acetaminophen < 10 L (10-30) ug/ml Urine Barbiturates NEGATIVE (NEGATIVE) Ur Phencyclidine (PCP) NEGATIVE (NEGATIVE) Urine Amphetamine POSITIVE (NEGATIVE) U Benzodiazepine Level NEGATIVE (NEGATIVE) Urine Cocaine NEGATIVE (NEGATIVE) Urine Marijuana (THC) NEGATIVE (NEGATIVE) Influenza Type A Ag (NEGATIVE) Influenza Type B Ag (NEGATIVE) RSV (PCR) (Negative) SARS-CoV-2 (PCR) (NEGATIVE) 07/03/20 07/04/20 07/04/20 Range/Units 10:01 05:50 05:50 WBC 23.5 H (4.0-10.5) K/mm3 RBC 4.87 (4.1-5.4) M/mm3 Hgb 11.3 L (12.0-16.0) gm/dl Hct 33.6 L (35-47) % MCV 69.0 L (78-100) fl MCH 23.2 L (26-32) pg MCHC 33.6 (32-36) g/dl RDW 14.9 H (11.5-14.0) % Plt Count 37 L D (150-450) K/mm3 Segmented Neutrophils 82 H (36.0-66.0) % Band Neutrophils 7 H (0.0-2.0) % Lymphocytes (Manual) 4 L (24-44) % Monocytes (Manual) 7 (0.0-12.0) % Hypochromia 1+ Platelet Estimate DECREASED (NORMAL) RBC Morphology ABNORMAL Sodium 126 L (137-145) mmol/L Potassium 3.9 (3.5-5.1) mmol/L Chloride 100 (98-107) mmol/L Carbon Dioxide 22 (22-30) mmol/L Anion Gap 7.9 (5-15) MEQ/L BUN 27 H (7-17) mg/dL Creatinine 0.62 (0.52-1.04) mg/dL Estimated GFR > 60.0 ML/MIN Glucose 138 H (74-106) mg/dL Lactic Acid (0.4-2.0) Calcium 8.8 (8.4-10.2) mg/dL Total Bilirubin 0.80 (0.2-1.3) mg/dL AST 51 H (14-36) U/L ALT 41 H (0-35) U/L Alkaline Phosphatase 240 H (38-126) U/L Serum Total Protein 5.1 L (6.3-8.2) g/dL Albumin 2.4 L (3.5-5.0) g/dL Urine Opiates Level (NEGATIVE) Ur Methadone (NEGATIVE) Acetaminophen (10-30) ug/ml Urine Barbiturates (NEGATIVE) Ur Phencyclidine (PCP) (NEGATIVE) Urine Amphetamine (NEGATIVE) U Benzodiazepine Level (NEGATIVE) Urine Cocaine (NEGATIVE) Urine Marijuana (THC) (NEGATIVE) Influenza Type A Ag NEGATIVE (NEGATIVE) Influenza Type B Ag NEGATIVE (NEGATIVE) RSV (PCR) NEGATIVE (Negative) SARS-CoV-2 (PCR) NEGATIVE (NEGATIVE) Microbiology 07/03/20 07:25 Blood Culture Gram Stain - Final Blood 07/03/20 07:05 Blood Culture - Preliminary Blood NO GROWTH TO DATE - Radiology Impressions Radiology Exams & Impressions: Radiology Procedures Category Date Time Status ABDOMEN AND PELVIS W/0 CONTRAS [CT] Stat Exams 07/03/20 06:[address]/ABDOMEN AND PELVIS W/0 CONTRAS Indication: Low back and bilateral flank pain. Multiple contiguous axial images obtained through the abdomen and pelvis without contrast using renal stone protocol. Comparison: July 04, 2017. Lung bases again demonstrates bibasilar dependent atelectasis and lingula calcified granuloma. Heart is not enlarged. Several images slightly degraded by respiration artifact. No renal calculus or evidence for obstructive uropathy in either system. Noncontrasted stomach and bowel loops appear nonobstructed. Appendectomy reported. No free fluid/air. Remaining liver, gallbladder, pancreas, spleen, adrenal glands, kidneys, ureters, bladder, uterus, and aorta appear unremarkable for noncontrast exam. Osseous structures intact with progressive worsening mild/moderate T12-L3 degenerative disc disease. Impression: 1. Respiration artifact. 2. Negative renal calculus or evidence for obstructive uropathy. 3. No new/acute intra-abdominal/pelvic abnormalities on this noncontrast exam. - Other Procedures and Tests Respiratory Therapy 07/03/20 14:26 Respiratory Therapy Assessment DAILY Assessment/Plan (1) Acute UTI (urinary tract infection) Current Visit: Yes Status: Acute Assessment & Plan: Chief Complaint Diagnosis UTI. hyponatremia Allergies Allergy/AdvReac Type Severity Reaction Status Date / Time No Known Drug Allergies Allergy Verified 07/01/20 15:37 Vital Signs (Last 24 hours) Temp Pulse Resp BP Pulse Ox 07/04/20 07:52 97.8 F 90 30 H 142/86 96 07/04/20 06:45 87 16 99 07/03/20 23:35 98.1 F 95 H 20 142/78 100 07/03/20 19:38 84 18 97 07/03/20 19:27 98.8 F 103 H 18 120/76 98 07/03/20 16:00 99.6 F 108 H 16 132/80 98 07/03/20 13:00 101 H 16 97 07/03/20 11:59 98.2 F 102 H 16 119/79 97 07/03/20 11:35 98.2 F 102 H 16 119/79 97 07/03/20 10:29 102 H 18 131/96 97 07/03/20 09:32 110 H 18 136/77 95 07/03/20 08:30 107 H 20 115/71 94 L Current Medications Generic Name Dose Route Start Last Admin Trade Name Freq PRN Reason Stop Dose Admin Acetaminophen 650 mg 07/03/20 11:25 07/03/20 21:44 Tylenol 325 Mg PO 08/02/20 11:24 650 mg Q4H PRN PRN Administration PAIN AND/OR FEVER Albuterol Sulfate 2 puff 07/03/20 14:24 Ventolin Common Canister IH 08/02/20 14:23 Q4H PRN PRN SHORTNESS OF BREATH/WHEEZING Sodium Chloride 1,000 mls @ 125 mls/hr 07/03/20 11:25 07/04/20 03:44 Sodium Chloride 0.9% 1000 Ml IV 08/02/20 11:24 125 mls/hr .Q8H SELENE Administration Ceftriaxone Sodium/Dextrose 1 g in 50 mls @ 100 mls/hr 07/03/20 11:25 07/03/20 12:49 Rocephin 1 Gm-D5w 50 Ml Bag IV 07/06/20 11:24 Not Given Q24H10 SELENE Morphine Sulfate 2 mg 07/03/20 11:25 07/03/20 22:40 Morphine Sulfate 2 Mg Inj IV 07/08/20 11:24 2 mg Q4H PRN PRN Administration PAIN Ondansetron HCl 4 mg 07/03/20 11:25 Zofran 4 Mg/2 Ml Vial IV 08/02/20 11:24 Q6H PRN PRN NAUSEA/VOMITING Pantoprazole Sodium 40 mg 07/03/20 11:25 07/03/20 12:49 Protonix 40 Mg Iv IV 08/02/20 11:24 40 mg Q24H10 SELENE Administration Discontinued Medications Generic Name Dose Route Start Last Admin Trade Name Freq PRN Reason Stop Dose Admin Albuterol/Ipratropium 3 ml 07/03/20 11:25 Duoneb 0.5-3 Mg/3 Ml Neb IH 08/02/20 11:24 Q4HPRN PRN SHORTNESS OF BREATH/WHEEZING Hydromorphone HCl 1 mg 07/03/20 05:53 07/03/20 06:06 Hydromorphone 1 Mg/Ml Injection IV 07/03/20 05:54 1 mg STAT ONE Administration Hydromorphone HCl Confirm 07/03/20 05:58 Hydromorphone 1 Mg/Ml Injection Administered 07/03/20 05:59 Dose 1 mg .ROUTE .STK-MED ONE Ceftriaxone Sodium/Dextrose 1 g in 50 mls @ 100 mls/hr 07/03/20 05:54 04 07:38 Rocephin 1 Gm-D5w 50 Ml Bag IV 07/03/20 06:23 Infused STAT STA Infusion Sodium Chloride 1,000 mls @ 999 mls/hr 07/03/20 06:00 07/03/20 07:38 Sodium Chloride 0.9% 1000 Ml IV 07/03/20 07:00 Infused .Q1H1M STA Infusion Sodium Chloride Confirm 07/03/20 05:58 Sodium Chloride 0.9% 1000 Ml Administered 07/03/20 05:59 Dose 1,000 mls @ ud .ROUTE .STK-MED ONE Ceftriaxone Sodium/Dextrose Confirm 07/03/20 05:59 Rocephin 1 Gm-D5w 50 Ml Bag Administered 07/03/20 06:00 Dose 1 g in 50 mls @ ud IV .STK-MED ONE Sodium Chloride 1,000 mls @ 999 mls/hr 07/03/20 06:53 07/03/20 08:53 Sodium Chloride 0.9% 1000 Ml IV 07/03/20 07:53 Infused .Q1H1M STA Infusion Sodium Chloride Confirm 07/03/20 07:31 Sodium Chloride 0.9% 1000 Ml Administered 07/03/20 07:32 Dose 1,000 mls @ ud .ROUTE .STK-MED ONE Ibuprofen 400 mg 07/04/20 00:00 07/03/20 23:23 Motrin 400 Mg PO 07/04/20 00:01 400 mg ONCE ONE Administration Methylprednisolone Sodium Succinate 125 mg 07/03/20 05:54 07/03/20 06:05 Solu-Medrol 125 Mg IV 07/03/20 05:55 125 mg STAT ONE Administration Methylprednisolone Sodium Succinate Confirm 07/03/20 05:58 Solu-Medrol 125 Mg Administered 07/03/20 05:59 Dose 125 mg .ROUTE .STK-MED ONE Ondansetron HCl 4 mg 07/03/20 05:53 07/03/20 06:05 Zofran 4 Mg/2 Ml Vial IV 07/03/20 05:54 4 mg STAT ONE Administration Ondansetron HCl Confirm 07/03/20 05:58 Zofran 4 Mg/2 Ml Vial Administered 07/03/20 05:59 Dose 4 mg .ROUTE .STK-MED ONE Intake & Output (Last 24 hours) 07/01/20 07/02/20 07/03/20 07/04/20 11:59 11:59 11:59 11:59 Intake Total 2103 Output Total 1000 Balance 1103 Weight 55.6 kg Microbiology Results (Last 24 hours) 07/03/20 07:25 Blood Blood Culture Gram Stain - Final 07/03/20 07:25 Blood Blood Culture - Pending 07/03/20 07:05 Blood Blood Culture Gram Stain - Pending 07/03/20 07:05 Blood Blood Culture - Preliminary NO GROWTH TO DATE Laboratory Results (Last 24 hours) 07/04/20 07/04/20 07/03/20 05:50 05:50 10:01 WBC 23.5 H RBC 4.87 Hgb 11.3 L Hct 33.6 L MCV 69.0 L MCH 23.2 L MCHC 33.6 RDW 14.9 H Plt Count 37 L D Segmented Neutrophils 82 H Band Neutrophils 7 H Lymphocytes (Manual) 4 L Monocytes (Manual) 7 Hypochromia 1+ Platelet Estimate DECREASED RBC Morphology ABNORMAL Sodium 126 L Potassium 3.9 Chloride 100 Carbon Dioxide 22 Anion Gap 7.9 BUN 27 H Creatinine 0.62 Estimated GFR > 60.0 Glucose 138 H Lactic Acid Calcium 8.8 Total Bilirubin 0.80 AST 51 H ALT 41 H Alkaline Phosphatase 240 H Serum Total Protein 5.1 L Albumin 2.4 L Urine Opiates Level Ur Methadone Acetaminophen Urine Barbiturates Ur Phencyclidine (PCP) Urine Amphetamine U Benzodiazepine Level Urine Cocaine Urine Marijuana (THC) Influenza Type A Ag NEGATIVE Influenza Type B Ag NEGATIVE RSV (PCR) NEGATIVE SARS-CoV-2 (PCR) NEGATIVE 07/03/20 07/03/20 07/03/20 09:00 08:30 05:47 WBC RBC Hgb Hct MCV MCH MCHC RDW Plt Count Segmented Neutrophils Band Neutrophils Lymphocytes (Manual) Monocytes (Manual) Hypochromia Platelet Estimate RBC Morphology Sodium Potassium Chloride Carbon Dioxide Anion Gap BUN Creatinine Estimated GFR Glucose Lactic Acid 0.7 Calcium Total Bilirubin AST ALT Alkaline Phosphatase Serum Total Protein Albumin Urine Opiates Level POSITIVE Ur Methadone NEGATIVE Acetaminophen < 10 L Urine Barbiturates NEGATIVE Ur Phencyclidine (PCP) NEGATIVE Urine Amphetamine POSITIVE U Benzodiazepine Level NEGATIVE Urine Cocaine NEGATIVE Urine Marijuana (THC) NEGATIVE Influenza Type A Ag Influenza Type B Ag RSV (PCR) SARS-CoV-2 (PCR) Orders (Last 24 hours) Category Date Time Status Up With Assistance ROUTINE Activity 07/03/20 11:25 Active Code Status Order ROUTINE Care 07/03/20 11:25 Active Fall Protocol Q1H Care 07/03/20 11:25 Active IV Care Q6H Care 07/03/20 11:[address] in Observation ROUTINE Care 07/03/20 11:25 Active Keith Miramontes ROUTINE Care 07/03/20 11:25 Active Telemetry q6h Care 07/03/20 11:22 Active House Regular Diet Diet 07/03/20 Lunch Active BLOOD CULTURE Stat Lab 07/03/20 07:25 Results CBC W DIFF AM.LAB Lab 07/04/20 05:50 Completed CMP AM.LAB Lab 07/04/20 05:50 Completed Lactic Acid Stat Lab 07/03/20 08:30 Completed Manual Differential NC Routine Lab 07/04/20 05:50 Completed Urine Triage Profile Stat Lab 07/03/20 09:00 Completed Acetaminophen 325 mg [Tylenol 325 mg] Med 07/03/20 11:25 Active 650 mg PO Q4H PRN PRN Albuterol Common Canister [Ventolin Common Canister* Med 07/03/20 14:24 Active ] 2 puff IH Q4H PRN PRN Albuterol/Ipratropium 3ml Neb* [DUONEB 0.5-3 MG/3 ml Med 07/03/20 11:25 Discontinued Neb] 3 ml IH Q4HPRN PRN Ceftriaxone 1 GM/50 ML PREMIX* [ROCEPHIN 1 Gm-D5w 50 ml Med 07/03/20 11:25 Active Bag] 1 g in 50 ml IV Q24H10 Ibuprofen 400 mg [Motrin 400 mg] Med 07/04/20 00:00 Discontinued 400 mg PO ONCE ONE Morphine Sulfate 2 mg Inj Med 07/03/20 11:25 Active 2 mg IV Q4H PRN PRN NaCl 0.9% 1000 ml [Sodium Chloride 0.9% 1000 ML] 1,000 Med 07/03/20 07:31 Discontinued ml .ROUTE UD NaCl 0.9% 1000 ml [Sodium Chloride 0.9% 1000 ML] 1,000 Med 07/03/20 11:25 Active ml IV 125 mls/hr Ondansetron HCl 4 mg/2 ml [Zofran 4 MG/2 ML VIAL] Med 07/03/20 11:25 Active 4 mg IV Q6H PRN PRN Pantoprazole 40 mg [Protonix 40 mg IV] Med 07/03/20 11:25 Active 40 mg IV Q24H10 OT Screen per Nursing Assess ONCE OT 07/03/20 12:30 Active PT Screen per Nursing Assess ONCE PT 07/03/20 12:30 Active Flutter Therapy UD RT 07/03/20 14:31 Completed Pulse Oximetry .spot check RT 07/03/20 14:26 Active Respiratory Therapy Assessment DAILY RT 07/03/20 14:26 Active Smoking Cessation Education ONCE RT 07/03/20 12:30 Completed Patient Care Notes (Last 24 hours) 07/04/20 00:14 Nursing Note by Jamaal Mahoney around 2145, applied marysol hose. Gave tylenol at this time for back pain. Initially pt tolerated well, but about 30 minutes after putting them on, pt called out that they were hurting her feet. Especially c/o pain in right lower leg. Removed marysol hose. No redness, edema, warmth noted to leg. Provided warm blanket for comfort. At 2240, pt still c/o 9/10 pain in right lower leg, gave 2 mg morphine, see emar. Pt continued to call out that she had no relief from pain. Ice pack provided. at 2320 pt still c/o 9/[address] Guerrero who ordered 400 mg Ibuprofen, one dose. This was given. Pt continued to c/o of pain, offered distraction by watching TV, provided warm pack, position change and recliner for postition change. Pt continues to c/o pain. Will continue to monitor. Initialized on 07/04/20 00:14 - END OF NOTE Code(s): N39.0 - URINARY TRACT INFECTION, SITE NOT SPECIFIED (2) Recurrent low back pain Current Visit: Yes Status: Acute Code(s): M54.5 - LOW BACK PAIN (3) Degenerative disc disease Current Visit: No Status: Acute Code(s): LST5624 - (4) Lumbosacral strain Current Visit: No Status: Acute Code(s): S39.012A - STRAIN OF MUSCLE, FASCIA AND TENDON OF LOWER BACK, INIT
[2020-07-04] MEDS: Macrobid 100MG Capsule PO SCH ×2 (09:52→17:10)
[2020-07-04] MEDS: Wellbutrin SR 150 MG PO SCH (09:52)
[2020-07-04] MEDS: Zestril 10 MG PO SCH (09:52)
[2020-07-04] MEDS: THERAGRAN MULTIVITAMIN PO SCH (09:52)
[2020-07-04] MEDS: TORAdol 10 MG TABLET PO SCH ×3 (09:52→21:00)
[2020-07-04] MEDS: Singulair 10 MG PO SCH (09:53)
[2020-07-04] MEDS: TYLENOL 325 MG PO PRN (09:53)
[2020-07-04] MEDS: Protonix 40MG Tablet PO SCH (09:53)
[2020-07-04] MEDS: ROCEPHIN 1 Gm-D5w 50 ml Bag** 1 G/50 ML IVPB IV SCH (09:56)
[2020-07-04] MEDS ORDERED: NON-FORMULARY ITEM (Omeprazole [Omeprazole] 20 MG) PO SCH (10:00)
[2020-07-04] MEDS ORDERED: PRENATAL VITS W CA FE FA PO SCH (10:00)
[2020-07-04] MEDS: lamISIL 250 MG PO SCH (11:08)
[2020-07-05] MEDS: Sodium Chloride 0.9% 1000 ML 1,000 ML IV SCH ×2 (02:55→21:29)
[2020-07-05] MEDS: MORPHINE SULFATE 2 MG INJ IV PRN (04:40)
[2020-07-05 05:30] LABS: Hematocrit 33.9 % (35-47); Hemoglobin 11.5 gm/dl (12.0-16.0); Mean Cell Volume 67.8 fl (78-100); Mean Corpuscular Hgb Concent. 33.9 g/dl (32-36); Platelet Count 58 K/mm3 (150-450); Red Cell Distribution Width 14.9 % (11.5-14.0)
[2020-07-05 05:49] LABS: ALBUMIN 2.2 g/dL (3.5-5.0); ALKALINE PHOSPHATASE 216 U/L (38-126); ANION GAP 8.6 MEQ/L (5-15); BLOOD UREA NITROGEN 24 mg/dL (7-17); CHLORIDE 101 mmol/L (98-107); Calcium 8.6 mg/dL (8.4-10.2); Carbon Dioxide 20 mmol/L (22-30); Creatinine 1 0.61 mg/dL (0.52-1.04); EST GLOMERULAR FILTRATION RATE > 60.0 ML/MIN; Glucose 99 mg/dL (74-106); Potassium 3.9 mmol/L (3.5-5.1); SGOT/AST 67 U/L (14-36); SGPT/ALT 43 U/L (0-35); SODIUM 126 mmol/L (137-145); Total Protein 4.9 g/dL (6.3-8.2)
[2020-07-05 06:36] LABS: Appearance SLIGHTLY CLOUDY (CLEAR); Bacteria RARE /HPF (NEGATIVE); Bilirubin NEGATIVE (NEGATIVE); Blood LARGE Ery/ul (0-5); Epithelial Cells RARE /HPF (FEW); Glucose NEGATIVE (NEGATIVE); Hyaline Casts 0-2 /LPF (0-2); Ketones NEGATIVE (NEGATIVE); Leukocyte Esterase NEGATIVE (NEGATIVE); Mucus SLIGHT /HPF (NEGATIVE); Nitrite NEGATIVE (NEGATIVE); Protein,Urine Dip 30 (Negative); Specific Gravity 1.018 (1.005-1.025); Urobilinogen 2 mg/dL (0-1)
[2020-07-05 06:51] LABS: RBC >101 /HPF (0-2)
[2020-07-05 07:35] LABS: Slide Review YES
[2020-07-05] MEDS: Macrobid 100MG Capsule PO SCH (07:38)
[2020-07-05] MEDS ORDERED: PHARMACY DOSING REQUEST MC ONE (09:27)
[2020-07-05] MEDS: Wellbutrin SR 150 MG PO SCH (09:58)
[2020-07-05] MEDS: Zestril 10 MG PO SCH (09:59)
[2020-07-05] MEDS: Protonix 40MG Tablet PO SCH (09:59)
[2020-07-05] MEDS: lamISIL 250 MG PO SCH (09:59)
[2020-07-05] MEDS: Singulair 10 MG PO SCH (09:59)
[2020-07-05] MEDS: ROCEPHIN 1 Gm-D5w 50 ml Bag** 1 G/50 ML IVPB IV SCH (09:59)
[2020-07-05] MEDS: THERAGRAN MULTIVITAMIN PO SCH (09:59)
[2020-07-05] MEDS ORDERED: VANCOMYCIN 1.25 GM/250 ML BAG 1.25 GM/250 ML PIGGYBACK IV ONE (10:00)
[2020-07-05] MEDS: TORAdol 10 MG TABLET PO SCH ×3 (10:01→21:29)
--- NOTE | 2020-07-05 12:56 | PCM.NOTE ---
Date and Time: 07/05/20 1254 Subjective Assessment: still feeling very weak, still running low grade temperature - Review of Systems Constitutional: Fever, Chills Eyes: No Symptoms Ears, Nose, & Throat: No Symptoms Respiratory: No Cough, No Short Of Breath Cardiac: No Chest Pain, No Edema, No Syncope Abdominal/Gastrointestinal: No Abdominal Pain, No Nausea, No Vomiting, No Diarrhea Genitourinary Symptoms: No Dysuria Musculoskeletal: No Back Pain, No Neck Pain Skin: No Rash Neurological: No Dizziness, No Focal Weakness, No Sensory Changes Psychological: No Symptoms Endocrine: No Symptoms Hematologic/Lymphatic: No Symptoms Immunological/Allergic: No Symptoms Objective Exam General Appearance: no apparent distress, alert Neurologic Exam: alert, oriented x 3, cooperative, normal mood/affect, nml cerebellar function, sensation nml, No motor deficits Skin Exam: normal color, warm, dry Eye Exam: PERRL, EOMI, eyes nml inspection Ears, Nose, Throat Exam: normal ENT inspection, pharynx normal, moist mucous membranes Neck Exam: normal inspection, non-tender, supple, full range of motion Respiratory Exam: normal breath sounds, lungs clear, No respiratory distress Cardiovascular Exam: regular rate/rhythm, normal heart sounds Gastrointestinal/Abdomen Exam: soft, No tenderness, No mass Extremity Exam: normal inspection, normal range of motion Back Exam: normal inspection, normal range of motion, No CVA tenderness, No vertebral tenderness Pelvic Exam: deferred Rectal Exam: deferred OBJECTIVE DATA Vital Signs: Vital Signs - 24 hr Temp Pulse Resp BP Pulse Ox 07/05/20 07:50 103 H 20 98 07/05/20 07:18 98.3 F 100 H 22 170/97 100 07/05/20 04:05 98.4 F 116 H 22 178/86 96 07/04/20 23:34 97.4 F 90 20 141/76 96 07/04/20 20:41 91 H 20 96 07/04/20 19:58 98.6 F 91 H 22 131/80 97 07/04/20 16:00 99.5 F 97 H 22 123/70 91 L Pain Assessment - Last Documented Pain Intensity [Lower Back] 10 Pain Intensity 3 Pain Scale Used 0-10 Pain Scale Intake and Output: Intake & Output 07/03/20 07/04/20 07/05/20 07/06/20 11:59 11:59 11:59 11:59 Intake Total 7748 2747 Output Total 1000 1350 Balance 1223 3253 Weight 55.6 kg Lab Results: Lab Results-Last 24 Hours 07/03/20 07/05/20 07/05/20 Range/Units 07:05 05:00 05:00 WBC 23.0 H (4.0-10.5) K/mm3 RBC 5.00 (4.1-5.4) M/mm3 Hgb 11.5 L (12.0-16.0) gm/dl Hct 33.9 L (35-47) % MCV 67.8 L (78-100) fl MCH 23.0 L (26-32) pg MCHC 33.9 (32-36) g/dl RDW 14.9 H (11.5-14.0) % Plt Count 58 L D (150-450) K/mm3 Sodium 126 L (137-145) mmol/L Potassium 3.9 (3.5-5.1) mmol/L Chloride 101 (98-107) mmol/L Carbon Dioxide 20 L (22-30) mmol/L Anion Gap 8.6 (5-15) MEQ/L BUN 24 H (7-17) mg/dL Creatinine 0.61 (0.52-1.04) mg/dL Estimated GFR > 60.0 ML/MIN Glucose 99 (74-106) mg/dL Calcium 8.6 (8.4-10.2) mg/dL Total Bilirubin 0.90 (0.2-1.3) mg/dL AST 67 H (14-36) U/L ALT 43 H (0-35) U/L Alkaline Phosphatase 216 H (38-126) U/L Serum Total Protein 4.9 L (6.3-8.2) g/dL Albumin 2.2 L (3.5-5.0) g/dL Procalcitonin (0.030-0.080) ng/mL Urine Color (YELLOW) Urine Appearance (CLEAR) Urine pH (5-6) Ur Specific [place] (1.005-1.025) Urine Protein (Negative) Urine Ketones (NEGATIVE) Urine Blood (0-5) Leo/ul Urine Nitrite (NEGATIVE) Urine Bilirubin (NEGATIVE) Urine Urobilinogen (0-1) mg/dL Ur Leukocyte Esterase (NEGATIVE) Urine WBC (Auto) (0-5) /HPF Urine RBC (Auto) (0-2) /HPF U Hyaline Cast (Auto) (0-2) /LPF U Epithel Cells (Auto) (FEW) /HPF Urine Bacteria (Auto) (NEGATIVE) /HPF Urine Mucus (Auto) (NEGATIVE) /HPF Urine Culture Reflexed (NO) Urine Glucose (NEGATIVE) mg/dL Hepatitis A IgM Ab Negative (Negative) Hep Bs Antigen Negative (Negative) Hep B Core IgM Ab Negative (Negative) Hepatitis C Antibody <0.1 (0.0-0.9) s/co ratio Slides for Path Review YES 07/05/20 07/05/20 Range/Units 06:00 09:30 WBC (4.0-10.5) K/mm3 RBC (4.1-5.4) M/mm3 Hgb (12.0-16.0) gm/dl Hct (35-47) % MCV (78-100) fl MCH (26-32) pg MCHC (32-36) g/dl RDW (11.5-14.0) % Plt Count (150-450) K/mm3 Sodium (137-145) mmol/L Potassium (3.5-5.1) mmol/L Chloride (98-107) mmol/L Carbon Dioxide (22-30) mmol/L Anion Gap (5-15) MEQ/L BUN (7-17) mg/dL Creatinine (0.52-1.04) mg/dL Estimated GFR ML/MIN Glucose (74-106) mg/dL Calcium (8.4-10.2) mg/dL Total Bilirubin (0.2-1.3) mg/dL AST (14-36) U/L ALT (0-35) U/L Alkaline Phosphatase (38-126) U/L Serum Total Protein (6.3-8.2) g/dL Albumin (3.5-5.0) g/dL Procalcitonin 2.740 H* (0.030-0.080) ng/mL Urine Color YELLOW (YELLOW) Urine Appearance SLIGHTLY CLOUDY (CLEAR) Urine pH 6.0 (5-6) Ur Specific [place] 1.018 (1.005-1.025) Urine Protein 30 (Negative) Urine Ketones NEGATIVE (NEGATIVE) Urine Blood LARGE (0-5) Leo/ul Urine Nitrite NEGATIVE (NEGATIVE) Urine Bilirubin NEGATIVE (NEGATIVE) Urine Urobilinogen 2 (0-1) mg/dL Ur Leukocyte Esterase NEGATIVE (NEGATIVE) Urine WBC (Auto) 11-15 (0-5) /HPF Urine RBC (Auto) >101 (0-2) /HPF U Hyaline Cast (Auto) 0-2 (0-2) /LPF U Epithel Cells (Auto) RARE (FEW) /HPF Urine Bacteria (Auto) RARE (NEGATIVE) /HPF Urine Mucus (Auto) SLIGHT (NEGATIVE) /HPF Urine Culture Reflexed YES (NO) Urine Glucose NEGATIVE (NEGATIVE) mg/dL Hepatitis A IgM Ab (Negative) Hep Bs Antigen (Negative) Hep B Core IgM Ab (Negative) Hepatitis C Antibody (0.0-0.9) s/co ratio Slides for Path Review Multi-Disciplinary Progress Notes: Multi-Disciplinary Progress Notes 07/05/20 09:36 Pharmacy Note by Orion Abdi Pharmacokinetic dosing service Date: 07/05/20 Time: 929 Objective: Patient: Maria D Sumner Floor: [address] Age: 55 yo Serum creatinine: 0.61 mg/dL Height: 65 Inches Weight (kg): 56 Diagnosis: uti , GRAM POSITIVE COCCI IN BLOOD WBC > 65148 Relevant medical/social history: Cultures and sensitivities: STAPH AUREUS IN BLOOD VNAC SENSATIVE Other labs: WBC = 72676 SCR CR - 0.61 Assessment: IBW (kg): 57.00 Dosing wt(kg): 56 Estimated Creatinine clearance (ml/min): 93.2 CRCL method: Cockcroft and Gault using ibw(default). Drug selected: Vancomycin Loading dose (mg): 1250 MG Vd (liters): 42.0 (factor used: 0.75 L/kg) Jesse (hr-1): 0.082 Half life (hrs): 8.45 Recommended dose: 1000 mg Interval: 12 hrs Infusion time (hrs): 2.0 Predicted peak (mcg/mL): 35.1 Predicted trough (mcg/mL): 15.46 Total body weight is being used for vancomycin dosing. Renal function is stable [ xxx ] /unstable [ ] Recommendations: Give Vancomycin 1000 mg q 12 hrs with an expected Cpeak of 35.1 mcg/ml and an expected Ctrough of 15.46 mcg/ml Renal dosing of other antibiotics (review renal dosing of other medications and list guidelines here): Thank you for the consult, will continue to follow. Signature: ASH Initialized on 07/05/20 09:36 - END OF NOTE Assessment/Plan (1) Sepsis due to Staphylococcus aureus Current Visit: Yes Status: Acute Assessment & Plan: Chief Complaint Diagnosis SEPTICEMIA Allergies Allergy/AdvReac Type Severity Reaction Status Date / Time No Known Drug Allergies Allergy Verified 07/01/20 15:37 Vital Signs (Last 24 hours) Temp Pulse Resp BP Pulse Ox 07/05/20 07:50 103 H 20 98 07/05/20 07:18 98.3 F 100 H 22 170/97 100 07/05/20 04:05 98.4 F 116 H 22 178/86 96 07/04/20 23:34 97.4 F 90 20 141/76 96 07/04/20 20:41 91 H 20 96 07/04/20 19:58 98.6 F 91 H 22 131/80 97 07/04/20 16:00 99.5 F 97 H 22 123/70 91 L Current Medications Generic Name Dose Route Start Last Admin Trade Name Freq PRN Reason Stop Dose Admin Acetaminophen 650 mg 07/03/20 11:25 07/04/20 09:53 Tylenol 325 Mg PO 08/02/20 11:24 650 mg Q4H PRN PRN Administration PAIN AND/OR FEVER Albuterol Sulfate 2 puff 07/03/20 14:24 Ventolin Common Canister IH 08/02/20 14:23 Q4H PRN PRN SHORTNESS OF BREATH/WHEEZING Bupropion HCl 150 mg 07/04/20 10:00 07/05/20 09:58 Wellbutrin Sr 150 Mg PO 08/03/20 09:59 150 mg DAILY SELENE Administration Device 1 07/07/20 09:30 Trough Drug Levels IJ 07/07/20 09:31 1XONLY ONE Sodium Chloride 1,000 mls @ 125 mls/hr 07/03/20 11:25 07/05/20 02:55 Sodium Chloride 0.9% 1000 Ml IV 08/02/20 11:24 125 mls/hr .Q8H SELENE Administration Ceftriaxone Sodium/Dextrose 1 g in 50 mls @ 100 mls/hr 07/03/20 11:25 07/05/20 09:59 Rocephin 1 Gm-D5w 50 Ml Bag IV 07/07/20 11:24 100 mls/hr Q24H10 SELENE Administration Vancomycin HCl 1 gm in 200 mls @ 125 mls/hr 07/05/20 22:00 Vancomycin 1 Gram/200 Ml Bag IV 08/04/20 21:59 Q12H SELENE Ketorolac Tromethamine 10 mg 07/04/20 10:00 07/05/20 10:01 Toradol 10 Mg Tablet PO 07/08/20 22:01 10 mg TID SELENE Administration Lisinopril 10 mg 07/04/20 10:00 07/05/20 09:59 Zestril 10 Mg PO 08/03/20 09:59 10 mg DAILY SELENE Administration Montelukast Sodium 10 mg 07/04/20 10:00 07/05/20 09:59 Singulair 10 Mg PO 08/03/20 09:59 10 mg DAILY SELENE Administration Morphine Sulfate 2 mg 07/03/20 11:25 07/05/20 04:40 Morphine Sulfate 2 Mg Inj IV 07/08/20 11:24 2 mg Q4H PRN PRN Administration PAIN Multivitamins Therapeutic 1 tab 07/04/20 10:00 07/05/20 09:59 Theragran Multivitamin PO 08/03/20 09:59 1 tab DAILY SELENE Administration Ondansetron HCl 4 mg 07/03/20 11:25 Zofran 4 Mg/2 Ml Vial IV 08/02/20 11:24 Q6H PRN PRN NAUSEA/VOMITING Pantoprazole Sodium 40 mg 07/04/20 10:00 07/05/20 09:59 Protonix 40mg Tablet PO 08/03/20 09:59 40 mg DAILY SELENE Administration Terbinafine HCl 250 mg 07/04/20 10:00 07/05/20 09:59 Lamisil 250 Mg PO 08/03/20 09:59 250 mg DAILY SELENE Administration Discontinued Medications Generic Name Dose Route Start Last Admin Trade Name Freq PRN Reason Stop Dose Admin Albuterol/Ipratropium 3 ml 07/03/20 11:25 Duoneb 0.5-3 Mg/3 Ml Neb IH 08/02/20 11:24 Q4HPRN PRN SHORTNESS OF BREATH/WHEEZING Hydromorphone HCl 1 mg 07/03/20 05:53 07/03/20 06:06 Hydromorphone 1 Mg/Ml Injection IV 07/03/20 05:54 1 mg STAT ONE Administration Hydromorphone HCl Confirm 07/03/20 05:58 Hydromorphone 1 Mg/Ml Injection Administered 07/03/20 05:59 Dose 1 mg .ROUTE .STK-MED ONE Ceftriaxone Sodium/Dextrose 1 g in 50 mls @ 100 mls/hr 07/03/20 05:54 07/03/20 07:38 Rocephin 1 Gm-D5w 50 Ml Bag IV 07/03/20 06:23 Infused STAT STA Infusion Sodium Chloride 1,000 mls @ 999 mls/hr 07/03/20 06:00 07/03/20 07:38 Sodium Chloride 0.9% 1000 Ml IV 07/03/20 07:00 Infused .Q1H1M STA Infusion Sodium Chloride Confirm 07/03/20 05:58 Sodium Chloride 0.9% 1000 Ml Administered 07/03/20 05:59 Dose 1,000 mls @ ud .ROUTE .STK-MED ONE Ceftriaxone Sodium/Dextrose Confirm 07/03/20 05:59 Rocephin 1 Gm-D5w 50 Ml Bag Administered 07/03/20 06:00 Dose 1 g in 50 mls @ ud IV .STK-MED ONE Sodium Chloride 1,000 mls @ 999 mls/hr 07/03/20 06:53 07/03/20 08:53 Sodium Chloride 0.9% 1000 Ml IV 07/03/20 07:53 Infused .Q1H1M STA Infusion Sodium Chloride Confirm 07/03/20 07:31 Sodium Chloride 0.9% 1000 Ml Administered 07/03/20 07:32 Dose 1,000 mls @ ud .ROUTE .STK-MED ONE Vancomycin HCl 1.25 gm in 250 mls @ 150 mls/hr 07/05/20 10:00 07/05/20 09:58 Vancomycin 1.25 Gm/250 Ml Bag IV 07/05/20 11:39 150 mls/hr NOW ONE Administration Ibuprofen 400 mg 07/04/20 00:00 07/03/20 23:23 Motrin 400 Mg PO 07/04/20 00:01 400 mg ONCE ONE Administration Methylprednisolone Sodium Succinate 125 mg 07/03/20 05:54 07/03/20 06:05 Solu-Medrol 125 Mg IV 07/03/20 05:55 125 mg STAT ONE Administration Methylprednisolone Sodium Succinate Confirm 07/03/20 05:58 Solu-Medrol 125 Mg Administered 07/03/20 05:59 Dose 125 mg .ROUTE .STK-MED ONE Nitrofurantoin Macrocrystals 100 mg 07/04/20 10:00 07/05/20 07:38 Macrobid 100mg Capsule PO 08/03/20 09:59 100 mg BIDWM SELENE Administration Non-Formulary Medication 1 each 07/05/20 09:27 07/05/20 09:44 Pharmacy Dosing Request MC 07/05/20 09:28 1 each STAT ONE Administration Ondansetron HCl 4 mg 07/03/20 05:53 07/03/20 06:05 Zofran 4 Mg/2 Ml Vial IV 07/03/20 05:54 4 mg STAT ONE Administration Ondansetron HCl Confirm 07/03/20 05:58 Zofran 4 Mg/2 Ml Vial Administered 07/03/20 05:59 Dose 4 mg .ROUTE .STK-MED ONE Pantoprazole Sodium 40 mg 07/03/20 11:25 07/03/20 12:49 Protonix 40 Mg Iv IV 08/02/20 11:24 40 mg Q24H10 SELENE Administration Intake & Output (Last 24 hours) 07/03/20 07/04/20 07/05/20 07/06/20 11:59 11:59 11:59 11:59 Intake Total 2223 4603 Output Total 1000 1350 Balance 1223 3253 Weight 55.6 kg Microbiology Results (Last 24 hours) 07/03/20 07:25 Blood Blood Culture Gram Stain - Final 07/03/20 07:25 Blood Blood Culture - Final Staphylococcus Aureus 07/05/20 06:00 Urine, Void Urine Culture - Pending Laboratory Results (Last 24 hours) 07/05/20 07/05/20 07/05/20 09:30 06:00 05:00 WBC RBC Hgb Hct MCV MCH MCHC RDW Plt Count Sodium 126 L Potassium 3.9 Chloride 101 Carbon Dioxide 20 L Anion Gap 8.6 BUN 24 H Creatinine 0.61 Estimated GFR > 60.0 Glucose 99 Calcium 8.6 Total Bilirubin 0.90 AST 67 H ALT 43 H Alkaline Phosphatase 216 H Serum Total Protein 4.9 L Albumin 2.2 L Procalcitonin 2.740 H* Urine Color YELLOW Urine Appearance SLIGHTLY CLOUDY Urine pH 6.0 Ur Specific [place] 1.018 Urine Protein 30 Urine Ketones NEGATIVE Urine Blood LARGE Urine Nitrite NEGATIVE Urine Bilirubin NEGATIVE Urine Urobilinogen 2 Ur Leukocyte Esterase NEGATIVE Urine WBC (Auto) 11-15 Urine RBC (Auto) >101 U Hyaline Cast (Auto) 0-2 U Epithel Cells (Auto) RARE Urine Bacteria (Auto) RARE Urine Mucus (Auto) SLIGHT Urine Culture Reflexed YES Urine Glucose NEGATIVE Hepatitis A IgM Ab Hep Bs Antigen Hep B Core IgM Ab Hepatitis C Antibody Slides for Path Review 07/05/20 07/03/20 05:00 07:05 WBC 23.0 H RBC 5.00 Hgb 11.5 L Hct 33.9 L MCV 67.8 L MCH 23.0 L MCHC 33.9 RDW 14.9 H Plt Count 58 L D Sodium Potassium Chloride Carbon Dioxide Anion Gap BUN Creatinine Estimated GFR Glucose Calcium Total Bilirubin AST ALT Alkaline Phosphatase Serum Total Protein Albumin Procalcitonin Urine Color Urine Appearance Urine pH Ur Specific [place] Urine Protein Urine Ketones Urine Blood Urine Nitrite Urine Bilirubin Urine Urobilinogen Ur Leukocyte Esterase Urine WBC (Auto) Urine RBC (Auto) U Hyaline Cast (Auto) U Epithel Cells (Auto) Urine Bacteria (Auto) Urine Mucus (Auto) Urine Culture Reflexed Urine Glucose Hepatitis A IgM Ab Negative Hep Bs Antigen Negative Hep B Core IgM Ab Negative Hepatitis C Antibody <0.1 Slides for Path Review YES Orders (Last 24 hours) Category Date Time Status Admission Status Change [Change to Full Admit] ROUTINE Care 07/05/20 07:25 Active CBC AM.LAB Lab 07/05/20 05:00 Completed CBC Routine Lab 07/06/20 04:00 Ordered CMP AM.LAB Lab 07/05/20 05:00 Completed CMP Routine Lab 07/06/20 04:00 Ordered CULTURE,URINE Routine Lab 07/05/20 06:00 Received PROCALCITONIN DAILY Lab 07/06/20 06:00 Ordered PROCALCITONIN DAILY Lab 07/07/20 06:00 Ordered PROCALCITONIN DAILY Lab 07/08/20 06:00 Ordered PROCALCITONIN DAILY Lab 07/09/20 06:00 Ordered PROCALCITONIN DAILY Lab 07/10/20 06:00 Ordered PROCALCITONIN DAILY Lab 07/11/20 06:00 Ordered PROCALCITONIN DAILY Lab 07/12/20 06:00 Ordered PROCALCITONIN Urgent Lab 07/05/20 09:30 Completed UA W/RFX UR CULTURE Routine Lab 07/05/20 06:00 Completed Vancomycin, Trough Urgent Lab 07/07/20 09:30 Ordered Pharmacy Dosing Request Med 07/05/20 09:27 Discontinued 1 each MC STAT ONE Therapuetic Drug Level Monitor [Trough Drug Levels] Med 07/07/20 09:30 Once 1 IJ 1XONLY ONE Vancomycin/Water For Inj (Peg) [Vancomycin 1 Gram/200 Med 07/05/20 22:00 Active ml Bag] 1 gm in 200 ml IV Q12H Vancomycin/Water For Inj (Peg) [Vancomycin 1.25 gm/250 Med 07/05/20 10:00 Discontinued ml Bag] 1.25 gm in 250 ml IV NOW Patient Care Notes (Last 24 hours) 07/05/20 10:51 SBAR Note by Edwina Fulton I am calling about MARIA D SUMNER the patient's code status is Full Code The problem I am calling about is: Called pt's Procalcitonin results to Dr Guerrero; no new orders. ASSESSMENT RECOMMENDATION Physician notified at [phone] New Orders received: Vital Signs (Last 4 hours) Temp Pulse Resp BP Pulse Ox 07/05/20 07:50 103 H 20 98 07/05/20 07:18 98.3 F 100 H 22 170/97 100 Diagnois, Code Status Date of Arrival on Unit 07/03/20 Admitted From Emergency Dept Diagnosis back pain for 3-4 days Resucitation Status Full Code Intake and Output 12 Hours 07/05/20 07/05/20 06:59 18:59 Intake Total 1845 120 Output Total 1350 Balance 495 120 Intake: Intake, Oral Amount 500 120 Intake, IV Amount 1345 Output: Output, Urine Amount 1350 Other: Number of Voids 1 Physical Assessment Anxiety Level None,at ease,Awake,Calm,Low Mental Status Alert Patient Orientation Person,Place,Time Coma Scale Total 14 Breath Sounds [Anterior/ Clear Posterior Throughout] Cardiac Rhythm-S[facility] Sinus Tachycardia Bowel Sounds [All Quadrants] Active Abdomen Description Soft,Non-Tender Urine Appearance Not Assessed Urine Color Light [place] Skin Color [place] Skin Temperature Warm Pain Scale (Last 12 Hours) Pain Intensity 5 Pain Intensity 2 Pain Intensity 4 Pain Intensity 10 Pain Intensity 10 Pain Intensity 4 PAST MEDICAL HISTORY Neurological History No Pertinent History ENT History No Pertinent History Endocrine Medical History No Pertinent History Respiratory History COPD Cardiac History Hypertension GI Medical History GERD History No Pertinent History Reproductive Disorders Menstrual Problems,Other Pyscho-Social History Other Comment toe fungus. HX of dislocated L shoulder. "large mood swings and can be combative", reported pt's mother. Anemia. STD. Lab Results (Last 12 Hours) 07/05/20 07/05/20 07/05/20 Range/Units 09:30 06:00 05:00 WBC (4.0-10.5) K/mm3 RBC (4.1-5.4) M/mm3 Hgb (12.0-16.0) gm/dl Hct (35-47) % MCV (78-100) fl MCH (26-32) pg MCHC (32-36) g/dl RDW (11.5-14.0) % Plt Count (150-450) K/mm3 Sodium 126 L (137-145) mmol/L Potassium 3.9 (3.5-5.1) mmol/L Chloride 101 (98-107) mmol/L Carbon Dioxide 20 L (22-30) mmol/L Anion Gap 8.6 (5-15) MEQ/L BUN 24 H (7-17) mg/dL Creatinine 0.61 (0.52-1.04) mg/dL Estimated GFR > 60.0 ML/MIN Glucose 99 (74-106) mg/dL Calcium 8.6 (8.4-10.2) mg/dL Total Bilirubin 0.90 (0.2-1.3) mg/dL AST 67 H (14-36) U/L ALT 43 H (0-35) U/L Alkaline Phosphatase 216 H (38-126) U/L Serum Total Protein 4.9 L (6.3-8.2) g/dL Albumin 2.2 L (3.5-5.0) g/dL Procalcitonin 2.740 H* (0.030-0.080) ng/mL Urine Color YELLOW (YELLOW) Urine Appearance SLIGHTLY CLOUDY (CLEAR) Urine pH 6.0 (5-6) Ur Specific [place] 1.018 (1.005-1.025) Urine Protein 30 (Negative) Urine Ketones NEGATIVE (NEGATIVE) Urine Blood LARGE (0-5) Leo/ul Urine Nitrite NEGATIVE (NEGATIVE) Urine Bilirubin NEGATIVE (NEGATIVE) Urine Urobilinogen 2 (0-1) mg/dL Ur Leukocyte Esterase NEGATIVE (NEGATIVE) Urine WBC (Auto) 11-15 (0-5) /HPF Urine RBC (Auto) >101 (0-2) /HPF U Hyaline Cast (Auto) 0-2 (0-2) /LPF U Epithel Cells (Auto) RARE (FEW) /HPF Urine Bacteria (Auto) RARE (NEGATIVE) /HPF Urine Mucus (Auto) SLIGHT (NEGATIVE) /HPF Urine Culture Reflexed YES (NO) Urine Glucose NEGATIVE (NEGATIVE) mg/dL Hepatitis A IgM Ab (Negative) Hep Bs Antigen (Negative) Hep B Core IgM Ab (Negative) Hepatitis C Antibody (0.0-0.9) s/co ratio Slides for Path Review 07/05/20 07/03/20 Range/Units 05:00 07:05 WBC 23.0 H (4.0-10.5) K/mm3 RBC 5.00 (4.1-5.4) M/mm3 Hgb 11.5 L (12.0-16.0) gm/dl Hct 33.9 L (35-47) % MCV 67.8 L (78-100) fl MCH 23.0 L (26-32) pg MCHC 33.9 (32-36) g/dl RDW 14.9 H (11.5-14.0) % Plt Count 58 L D (150-450) K/mm3 Sodium (137-145) mmol/L Potassium (3.5-5.1) mmol/L Chloride (98-107) mmol/L Carbon Dioxide (22-30) mmol/L Anion Gap (5-15) MEQ/L BUN (7-17) mg/dL Creatinine (0.52-1.04) mg/dL Estimated GFR ML/MIN Glucose (74-106) mg/dL Calcium (8.4-10.2) mg/dL Total Bilirubin (0.2-1.3) mg/dL AST (14-36) U/L ALT (0-35) U/L Alkaline Phosphatase (38-126) U/L Serum Total Protein (6.3-8.2) g/dL Albumin (3.5-5.0) g/dL Procalcitonin (0.030-0.080) ng/mL Urine Color (YELLOW) Urine Appearance (CLEAR) Urine pH (5-6) Ur Specific [place] (1.005-1.025) Urine Protein (Negative) Urine Ketones (NEGATIVE) Urine Blood (0-5) Leo/ul Urine Nitrite (NEGATIVE) Urine Bilirubin (NEGATIVE) Urine Urobilinogen (0-1) mg/dL Ur Leukocyte Esterase (NEGATIVE) Urine WBC (Auto) (0-5) /HPF Urine RBC (Auto) (0-2) /HPF U Hyaline Cast (Auto) (0-2) /LPF U Epithel Cells (Auto) (FEW) /HPF Urine Bacteria (Auto) (NEGATIVE) /HPF Urine Mucus (Auto) (NEGATIVE) /HPF Urine Culture Reflexed (NO) Urine Glucose (NEGATIVE) mg/dL Hepatitis A IgM Ab Negative (Negative) Hep Bs Antigen Negative (Negative) Hep B Core IgM Ab Negative (Negative) Hepatitis C Antibody <0.1 (0.0-0.9) s/co ratio Slides for Path Review YES Microbiology Results (Last 12 Hours) 07/03/20 07:25 Blood Culture Gram Stain - Final Blood Blood Culture - Final Staphylococcus Aureus 07/05/20 06:00 Urine Culture - Pending Urine, Void Orders (Last 12 Hours) Category Date Time Status CULTURE,URINE Routine Lab 07/05/20 06:00 Received Vancomycin, Trough Urgent Lab 07/07/20 09:30 Ordered Therapuetic Drug Level Monitor [Trough Drug Levels] Med 07/07/20 09:30 Once 1 IJ 1XONLY ONE Vancomycin/Water For Inj (Peg) [Vancomycin 1 Gram/200 Med 07/05/20 22:00 Act benji ml Bag] 1 gm in 200 ml IV Q12H Vancomycin/Water For Inj (Peg) [Vancomycin 1.25 gm/250 Med 07/05/20 10:00 Active ml Bag] 1.25 gm in 250 ml IV NOW Active Visit Medications Generic Name Dose Route Start Last Admin Trade Name Freq PRN Reason Stop Dose Admin Acetaminophen 650 mg 07/03/20 11:25 07/04/20 09:53 Tylenol 325 Mg PO 08/02/20 11:24 650 mg Q4H PRN PRN Administration PAIN AND/OR FEVER Albuterol Sulfate 2 puff 07/03/20 14:24 Ventolin Common Canister IH 08/02/20 14:23 Q4H PRN PRN SHORTNESS OF BREATH/WHEEZING Bupropion HCl 150 mg 07/04/20 10:00 07/05/20 09:58 Wellbutrin Sr 150 Mg PO 08/03/20 09:59 150 mg DAILY SELENE Administration Device 1 07/07/20 09:30 Trough Drug Levels IJ 07/07/20 09:31 1XONLY ONE Sodium Chloride 1,000 mls @ 125 mls/hr 07/03/20 11:25 07/05/20 02:55 Sodium Chloride 0.9% 1000 Ml IV 08/02/20 11:24 125 mls/hr .Q8H SELENE Administration Ceftriaxone Sodium/Dextrose 1 g in 50 mls @ 100 mls/hr 07/03/20 11:25 07/05/20 09:59 Rocephin 1 Gm-D5w 50 Ml Bag IV 07/06/20 11:24 100 mls/hr Q24H10 SELENE Administration Vancomycin HCl 1.25 gm in 250 mls @ 150 mls/hr 07/05/20 10:00 07/05/20 09:58 Vancomycin 1.25 Gm/250 Ml Bag IV 07/05/20 11:39 150 mls/hr NOW ONE Administration Vancomycin HCl 1 gm in 200 mls @ 125 mls/hr 07/05/20 22:00 Vancomycin 1 Gram/200 Ml Bag IV 08/04/20 21:59 Q12H SELENE Ketorolac Tromethamine 10 mg 07/04/20 10:00 07/05/20 10:01 Toradol 10 Mg Tablet PO 07/08/20 22:01 10 mg TID SELENE Administration Lisinopril 10 mg 07/04/20 10:00 07/05/20 09:59 Zestril 10 Mg PO 08/03/20 09:59 10 mg DAILY SELENE Administration Montelukast Sodium 10 mg 07/04/20 10:00 07/05/20 09:59 Singulair 10 Mg PO 08/03/20 09:59 10 mg DAILY SELENE Administration Morphine Sulfate 2 mg 07/03/20 11:25 07/05/20 04:40 Morphine Sulfate 2 Mg Inj IV 07/08/20 11:24 2 mg Q4H PRN PRN Administration PAIN Multivitamins Therapeutic 1 tab 07/04/20 10:00 07/05/20 09:59 Theragran Multivitamin PO 08/03/20 09:59 1 tab DAILY SELENE Administration Ondansetron HCl 4 mg 07/03/20 11:25 Zofran 4 Mg/2 Ml Vial IV 08/02/20 11:24 Q6H PRN PRN NAUSEA/VOMITING Pantoprazole Sodium 40 mg 07/04/20 10:00 07/05/20 09:59 Protonix 40mg Tablet PO 08/03/20 09:59 40 mg DAILY SELENE Administration Terbinafine HCl 250 mg 07/04/20 10:00 07/05/20 09:59 Lamisil 250 Mg PO 08/03/20 09:59 250 mg DAILY SELENE Administration Initialized on 07/05/20 10:51 - END OF NOTE 07/05/20 09:36 Pharmacy Note by Orion Abdi Pharmacokinetic dosing service Date: 07/05/20 Time: 929 Objective: Patient: Maria D Sumner Floor: [address] Age: 55 yo Serum creatinine: 0.61 mg/dL Height: 65 Inches Weight (kg): 56 Diagnosis: uti , GRAM POSITIVE COCCI IN BLOOD WBC > 51370 Relevant medical/social history: Cultures and sensitivities: STAPH AUREUS IN BLOOD VNAC SENSATIVE Other labs: WBC = 64093 SCR CR - 0.61 Assessment: IBW (kg): 57.00 Dosing wt(kg): 56 Estimated Creatinine clearance (ml/min): 93.2 CRCL method: Cockcroft and Gault using ibw(default). Drug selected: Vancomycin Loading dose (mg): 1250 MG Vd (liters): 42.0 (factor used: 0.75 L/kg) Jesse (hr-1): 0.082 Half life (hrs): 8.45 Recommended dose: 1000 mg Interval: 12 hrs Infusion time (hrs): 2.0 Predicted peak (mcg/mL): 35.1 Predicted trough (mcg/mL): 15.46 Total body weight is being used for vancomycin dosing. Renal function is stable [ xxx ] /unstable [ ] Recommendations: Give Vancomycin 1000 mg q 12 hrs with an expected Cpeak of 35.1 mcg/ml and an expected Ctrough of 15.46 mcg/ml Renal dosing of other antibiotics (review renal dosing of other medications and list guidelines here): Thank you for the consult, will continue to follow. Signature: ASH Initialized on 07/05/20 09:36 - END OF NOTE 07/05/20 09:25 SBAR Note by Edwina [place] [facility] I am calling about MARIA D SUMNER the patient's code status is Full Code The problem I am calling about is: DR Guerrero called to receive update on pt's ,WBC reported. New orders received. ASSESSMENT RECOMMENDATION Physician notified at 0925 New Orders received: Vital Signs (Last 4 hours) Temp Pulse Resp BP Pulse Ox 07/05/20 07:50 103 H 20 98 07/05/20 07:18 98.3 F 100 H 22 170/97 100 Diagnois, Code Status Date of Arrival on Unit 07/03/20 Admitted From Emergency Dept Diagnosis back pain for 3-4 days Resucitation Status Full Code Intake and Output 12 Hours 07/05/20 07/05/20 06:59 18:59 Intake Total 1845 120 Output Total 1350 Balance 495 120 Intake: Intake, Oral Amount 500 120 Intake, IV Amount 1345 Output: Output, Urine Amount 1350 Other: Number of Voids 1 Physical Assessment Anxiety Level None,at ease,Awake,Calm,Low,Sleeping Mental Status Alert Patient Orientation Person,Place,Time Coma Scale Total 14 Breath Sounds [Anterior/ Clear Posterior Throughout] Cardiac Rhythm-S[facility] Sinus Tachycardia Bowel Sounds [All Quadrants] Active Abdomen Description Soft,Non-Tender Urine Appearance Not Assessed Urine Color Light Fiorella Skin Color Woodson Skin Temperature Warm Pain Scale (Last 12 Hours) Pain Intensity 2 Pain Intensity 4 Pain Intensity 10 Pain Intensity 10 Pain Intensity 4 Pain Intensity 5 PAST MEDICAL HISTORY Neurological History No Pertinent History ENT History No Pertinent History Endocrine Medical History No Pertinent History Respiratory History COPD Cardiac History Hypertension GI Medical History GERD History No Pertinent History Reproductive Disorders Menstrual Problems,Other Pyscho-Social History Other Comment toe fungus. HX of dislocated L shoulder. "large mood swings and can be combative", reported pt's mother. Anemia. STD. Lab Results (Last 12 Hours) 07/05/20 07/05/20 07/05/20 Range/Units 06:00 05:00 05:00 WBC 23.0 H (4.0-10.5) K/mm3 RBC 5.00 (4.1-5.4) M/mm3 Hgb 11.5 L (12.0-16.0) gm/dl Hct 33.9 L (35-47) % MCV 67.8 L (78-100) fl MCH 23.0 L (26-32) pg MCHC 33.9 (32-36) g/dl RDW 14.9 H (11.5-14.0) % Plt Count 58 L D (150-450) K/mm3 Sodium 126 L (137-145) mmol/L Potassium 3.9 (3.5-5.1) mmol/L Chloride 101 (98-107) mmol/L Carbon Dioxide 20 L (22-30) mmol/L Anion Gap 8.6 (5-15) MEQ/L BUN 24 H (7-17) mg/dL Creatinine 0.61 (0.52-1.04) mg/dL Estimated GFR > 60.0 ML/MIN Glucose 99 (74-106) mg/dL Calcium 8.6 (8.4-10.2) mg/dL Total Bilirubin 0.90 (0.2-1.3) mg/dL AST 67 H (14-36) U/L ALT 43 H (0-35) U/L Alkaline Phosphatase 216 H (38-126) U/L Serum Total Protein 4.9 L (6.3-8.2) g/dL Albumin 2.2 L (3.5-5.0) g/dL Urine Color YELLOW (YELLOW) Urine Appearance SLIGHTLY CLOUDY (CLEAR) Urine pH 6.0 (5-6) Ur Specific [place] 1.018 (1.005-1.025) Urine Protein 30 (Negative) Urine Ketones NEGATIVE (NEGATIVE) Urine Blood LARGE (0-5) Leo/ul Urine Nitrite NEGATIVE (NEGATIVE) Urine Bilirubin NEGATIVE (NEGATIVE) Urine Urobilinogen 2 (0-1) mg/dL Ur Leukocyte Esterase NEGATIVE (NEGATIVE) Urine WBC (Auto) 11-15 (0-5) /HPF Urine RBC (Auto) >101 (0-2) /HPF U Hyaline Cast (Auto) 0-2 (0-2) /LPF U Epithel Cells (Auto) RARE (FEW) /HPF Urine Bacteria (Auto) RARE (NEGATIVE) /HPF Urine Mucus (Auto) SLIGHT (NEGATIVE) /HPF Urine Culture Reflexed YES (NO) Urine Glucose NEGATIVE (NEGATIVE) mg/dL Hepatitis A IgM Ab (Negative) Hep Bs Antigen (Negative) Hep B Core IgM Ab (Negative) Hepatitis C Antibody (0.0-0.9) s/co ratio Slides for Path Review YES 07/03/20 Range/Units 07:05 WBC (4.0-10.5) K/mm3 RBC (4.1-5.4) M/mm3 Hgb (12.0-16.0) gm/dl Hct (35-47) % MCV (78-100) fl MCH (26-32) pg MCHC (32-36) g/dl RDW (11.5-14.0) % Plt Count (150-450) K/mm3 Sodium (137-145) mmol/L Potassium (3.5-5.1) mmol/L Chloride (98-107) mmol/L Carbon Dioxide (22-30) mmol/L Anion Gap (5-15) MEQ/L BUN (7-17) mg/dL Creatinine (0.52-1.04) mg/dL Estimated GFR ML/MIN Glucose (74-106) mg/dL Calcium (8.4-10.2) mg/dL Total Bilirubin (0.2-1.3) mg/dL AST (14-36) U/L ALT (0-35) U/L Alkaline Phosphatase (38-126) U/L Serum Total Protein (6.3-8.2) g/dL Albumin (3.5-5.0) g/dL Urine Color (YELLOW) Urine Appearance (CLEAR) Urine pH (5-6) Ur Specific [place] (1.005-1.025) Urine Protein (Negative) Urine Ketones (NEGATIVE) Urine Blood (0-5) Leo/ul Urine Nitrite (NEGATIVE) Urine Bilirubin (NEGATIVE) Urine Urobilinogen (0-1) mg/dL Ur Leukocyte Esterase (NEGATIVE) Urine WBC (Auto) (0-5) /HPF Urine RBC (Auto) (0-2) /HPF U Hyaline Cast (Auto) (0-2) /LPF U Epithel Cells (Auto) (FEW) /HPF Urine Bacteria (Auto) (NEGATIVE) /HPF Urine Mucus (Auto) (NEGATIVE) /HPF Urine Culture Reflexed (NO) Urine Glucose (NEGATIVE) mg/dL Hepatitis A IgM Ab Negative (Negative) Hep Bs Antigen Negative (Negative) Hep B Core IgM Ab Negative (Negative) Hepatitis C Antibody <0.1 (0.0-0.9) s/co ratio Slides for Path Review Microbiology Results (Last 12 Hours) 07/03/20 07:25 Blood Culture Gram Stain - Final Blood Blood Culture - Final Staphylococcus Aureus 07/05/20 06:00 Urine Culture - Pending Urine, Void Orders (Last 12 Hours) Category Date Time Status CULTURE,URINE Routine Lab 07/05/20 06:00 Received Active Visit Medications Generic Name Dose Route Start Last Admin Trade Name Freq PRN Reason Stop Dose Admin Acetaminophen 650 mg 07/03/20 11:25 07/04/20 09:53 Tylenol 325 Mg PO 08/02/20 11:24 650 mg Q4H PRN PRN Administration PAIN AND/OR FEVER Albuterol Sulfate 2 puff 07/03/20 14:24 Ventolin Common Canister IH 08/02/20 14:23 Q4H PRN PRN SHORTNESS OF BREATH/WHEEZING Bupropion HCl 150 mg 07/04/20 10:00 07/04/20 09:52 Wellbutrin Sr 150 Mg PO 08/03/20 09:59 150 mg DAILY SELENE Administration Sodium Chloride 1,000 mls @ 125 mls/hr 07/03/20 11:25 07/05/20 02:55 Sodium Chloride 0.9% 1000 Ml IV 08/02/20 11:24 125 mls/hr .Q8H SELENE Administration Ceftriaxone Sodium/Dextrose 1 g in 50 mls @ 100 mls/hr 07/03/20 11:25 07/04/20 09:56 Rocephin 1 Gm-D5w 50 Ml Bag IV 07/06/20 11:24 100 mls/hr Q24H10 SELENE Administration Ketorolac Tromethamine 10 mg 07/04/20 10:00 07/04/20 21:00 Toradol 10 Mg Tablet PO 07/08/20 22:01 10 mg TID SELENE Administration Lisinopril 10 mg 07/04/20 10:00 07/04/20 09:52 Zestril 10 Mg PO 08/03/20 09:59 10 mg DAILY SELENE Administration Montelukast Sodium 10 mg 07/04/20 10:00 07/04/20 09:53 Singulair 10 Mg PO 08/03/20 09:59 10 mg DAILY SELENE Administration Morphine Sulfate 2 mg 07/03/20 11:25 07/05/20 04:40 Morphine Sulfate 2 Mg Inj IV 07/08/20 11:24 2 mg Q4H PRN PRN Administration PAIN Multivitamins Therapeutic 1 tab 07/04/20 10:00 07/04/20 09:52 Theragran Multivitamin PO 08/03/20 09:59 1 tab DAILY SELENE Administration Nitrofurantoin Macrocrystals 100 mg 07/04/20 10:00 07/05/20 07:38 Macrobid 100mg Capsule PO 08/03/20 09:59 100 mg BIDWM SELENE Administration Ondansetron HCl 4 mg 07/03/20 11:25 Zofran 4 Mg/2 Ml Vial IV 08/02/20 11:24 Q6H PRN PRN NAUSEA/VOMITING Pantoprazole Sodium 40 mg 07/04/20 10:00 07/04/20 09:53 Protonix 40mg Tablet PO 08/03/20 09:59 40 mg DAILY SELENE Administration Terbinafine HCl 250 mg 07/04/20 10:00 07/04/20 11:08 Lamisil 250 Mg PO 08/03/20 09:59 250 mg DAILY SELENE Administration Initialized on 07/05/20 09:25 - END OF NOTE (2) Acute UTI (urinary tract infection) Current Visit: Yes Status: Acute Code(s): N39.0 - URINARY TRACT INFECTION, SITE NOT SPECIFIED (3) Recurrent low back pain Current Visit: Yes Status: Acute Code(s): M54.5 - LOW BACK PAIN (4) Degenerative disc disease Current Visit: No Status: Chronic Qualifiers: Spinal region: lumbosacral Qualified Code(s): M51.37 - Other intervertebral disc degeneration, lumbosacral region Code(s): VSC2408 - (5) Lumbosacral strain Current Visit: No Status: Chronic Code(s): S39.012A - STRAIN OF MUSCLE, FASCIA AND TENDON OF LOWER BACK, INIT
[2020-07-05] MEDS: VANCOMYCIN 1 GRAM/200 ML BAG 1 GM/200 ML PIGGYBACK IV SCH (21:30)
[2020-07-06] MEDS: Sodium Chloride 0.9% 1000 ML 1,000 ML IV SCH ×2 (04:21→04:29)
[2020-07-06 05:17] LABS: Hematocrit 31.2 % (35-47); Hemoglobin 10.8 gm/dl (12.0-16.0); Mean Cell Volume 67.7 fl (78-100); Mean Corpuscular Hemoglobin 23.4 pg (26-32); Mean Corpuscular Hgb Concent. 34.6 g/dl (32-36); Mean Platelet Volume 10.4 fl (7.5-11.0); Platelet Count 108 K/mm3 (150-450); Red Blood Count 4.61 M/mm3 (4.1-5.4); Red Cell Distribution Width 14.6 % (11.5-14.0)
[2020-07-06 05:22] LABS: White Blood Count 30.7 K/mm3 (4.0-10.5)
[2020-07-06 05:31] LABS: ALBUMIN 2.1 g/dL (3.5-5.0); ALKALINE PHOSPHATASE 212 U/L (38-126); ANION GAP 7.7 MEQ/L (5-15); BLOOD UREA NITROGEN 14 mg/dL (7-17); CHLORIDE 101 mmol/L (98-107); Calcium 8.2 mg/dL (8.4-10.2); Carbon Dioxide 21 mmol/L (22-30); Creatinine 1 0.54 mg/dL (0.52-1.04); EST GLOMERULAR FILTRATION RATE > 60.0 ML/MIN; Glucose 102 mg/dL (74-106); Potassium 3.6 mmol/L (3.5-5.1); SGOT/AST 53 U/L (14-36); SGPT/ALT 39 U/L (0-35); SODIUM 126 mmol/L (137-145); Total Protein 4.8 g/dL (6.3-8.2)
[2020-07-06 05:49] LABS: Slide Review YES
[2020-07-06] MEDS: ROCEPHIN 1 Gm-D5w 50 ml Bag** 1 G/50 ML IVPB IV SCH (11:24)
[2020-07-06] MEDS: Protonix 40MG Tablet PO SCH (11:24)
[2020-07-06] MEDS: TORAdol 10 MG TABLET PO SCH ×2 (11:24→14:27)
[2020-07-06] MEDS: Singulair 10 MG PO SCH (11:24)
[2020-07-06] MEDS: TYLENOL 325 MG PO PRN (11:25)
[2020-07-06] MEDS: lamISIL 250 MG PO SCH (11:25)
[2020-07-06] MEDS: Wellbutrin SR 150 MG PO SCH (11:25)
[2020-07-06] MEDS: Zestril 10 MG PO SCH (11:25)
[2020-07-06] MEDS: THERAGRAN MULTIVITAMIN PO SCH (11:25)
--- NOTE | 2020-07-06 12:15 | XRAY ---
Indication: Short of breath. Right flank and right leg pain. Nausea and vomiting. Leukocytosis. Multiple contiguous images obtained through the chest without contrast. Comparison: None Mild respiration artifact limits exam. Heart is borderline enlarged and demonstrates small pericardial effusion. Aorta is normal in course and caliber. Tiny mediastinal and bilateral hilar calcified nodes. Lungs demonstrate moderate bilateral pleural effusions with mild bilateral lower lobe compressive atelectasis. Tiny lingula calcified granuloma. No suspicious pulmonary mass or infiltrate. Bony thorax intact. CT abdomen/pelvis reported separately. Impression: 1. Respiration artifact. 2. New moderate bibasilar pleural effusions with mild compressive atelectasis with respect to CT abdomen/pelvis 3 days earlier. 3. Also new borderline cardiomegaly and small pericardial effusion better evaluated with echocardiogram. 4. Incidental old granulomatous disease.
--- NOTE | 2020-07-06 12:21 | XRAY ---
Indication: Right flank and right leg pain. Nausea and vomiting. Leukocytosis. Multiple contiguous axial images obtained through the abdomen and pelvis using 80 cc Isovue 370 contrast. Comparison: CT renal stone study July 03, 2020. CT chest reported separately. Study slightly degraded by respiration artifact. Noncontrasted stomach and bowel loops nonobstructed again with appendectomy. New small pelvic and tiny abdominal free fluid. No free air. Gallbladder is not contracted. Remaining liver, pancreas, spleen, adrenal glands, kidneys, ureters, bladder, uterus, and aorta are unremarkable. New moderate diffuse anasarca. Impression: 1. Again respiration artifact. 2. New tiny abdominal/small pelvic ascites and diffuse anasarca. 3. Remaining CT abdomen/pelvis with contrast exam is negative.
[2020-07-06] MEDS: VANCOMYCIN 1 GRAM/200 ML BAG 1 GM/200 ML PIGGYBACK IV SCH (12:27)
--- NOTE | 2020-07-06 12:56 | PCM.NOTE ---
Date and Time: 07/06/20 1253 Subjective Assessment: doing better, WBC is high - Review of Systems Constitutional: No Fever, No Chills Eyes: No Symptoms Ears, Nose, & Throat: No Symptoms Respiratory: No Cough, No Short Of Breath Cardiac: No Chest Pain, No Edema, No Syncope Abdominal/Gastrointestinal: No Abdominal Pain, No Nausea, No Vomiting, No Diarrhea Genitourinary Symptoms: No Dysuria Musculoskeletal: No Back Pain, No Neck Pain Skin: No Rash Neurological: No Dizziness, No Focal Weakness, No Sensory Changes Psychological: No Symptoms Endocrine: No Symptoms Hematologic/Lymphatic: No Symptoms Immunological/Allergic: No Symptoms Objective Exam General Appearance: no apparent distress, alert Neurologic Exam: alert, oriented x 3, cooperative, normal mood/affect, nml cerebellar function, sensation nml, No motor deficits Skin Exam: normal color, warm, dry Eye Exam: PERRL, EOMI, eyes nml inspection Ears, Nose, Throat Exam: normal ENT inspection, pharynx normal, moist mucous membranes Neck Exam: normal inspection, non-tender, supple, full range of motion Respiratory Exam: normal breath sounds, lungs clear, No respiratory distress Cardiovascular Exam: regular rate/rhythm, normal heart sounds Gastrointestinal/Abdomen Exam: soft, No tenderness, No mass Extremity Exam: normal inspection, normal range of motion Back Exam: normal inspection, normal range of motion, No CVA tenderness, No vertebral tenderness Pelvic Exam: deferred Rectal Exam: deferred OBJECTIVE DATA Vital Signs: Vital Signs - 24 hr Temp Pulse Resp BP Pulse Ox 07/06/20 12:00 97.9 F 103 H 16 154/74 96 07/06/20 07:44 99.6 F 99 H 16 139/70 96 07/06/20 07:05 101 H 18 97 07/06/20 04:00 99 F 97 H 22 156/81 100 07/06/20 00:00 98.9 F 103 H 24 146/70 95 07/05/20 20:19 97 H 16 98 07/05/20 19:45 98.7 F 107 H 16 154/78 98 07/05/20 16:00 80 20 138/88 100 Pain Assessment - Last Documented Pain Intensity [Lower Back] 10 Pain Intensity 5 Pain Scale Used 0-10 Pain Scale Intake and Output: Intake & Output 07/04/20 07/05/20 07/06/20 07/07/20 11:59 11:59 11:59 11:59 Intake Total 7532 6850 5083 Output Total 1000 1350 1450 Balance 1223 5677 0664 Lab Results: Lab Results-Last 24 Hours 07/06/20 07/06/20 07/06/20 Range/Units 04:00 04:00 04:48 WBC 30.7 H* (4.0-10.5) K/mm3 RBC 4.61 (4.1-5.4) M/mm3 Hgb 10.8 L (12.0-16.0) gm/dl Hct 31.2 L (35-47) % MCV 67.7 L (78-100) fl MCH 23.4 L (26-32) pg MCHC 34.6 (32-36) g/dl RDW 14.6 H (11.5-14.0) % Plt Count 108 L D (150-450) K/mm3 MPV 10.4 (7.5-11.0) fl Smear Path Review Pending Sodium 126 L (137-145) mmol/L Potassium 3.6 (3.5-5.1) mmol/L Chloride 101 (98-107) mmol/L Carbon Dioxide 21 L (22-30) mmol/L Anion Gap 7.7 (5-15) MEQ/L BUN 14 (7-17) mg/dL Creatinine 0.54 (0.52-1.04) mg/dL Estimated GFR > 60.0 ML/MIN Glucose 102 (74-106) mg/dL Calcium 8.2 L (8.4-10.2) mg/dL Total Bilirubin 1.00 (0.2-1.3) mg/dL AST 53 H (14-36) U/L ALT 39 H (0-35) U/L Alkaline Phosphatase 212 H (38-126) U/L Serum Total Protein 4.8 L (6.3-8.2) g/dL Albumin 2.1 L (3.5-5.0) g/dL Procalcitonin 1.280 H (0.030-0.080) ng/mL Slides for Path Review YES Radiology Exams: Radiology Procedures Category Date Time Status ABDOMEN AND PELVIS W&WO CONTRA [CT] Urgent Exams 07/06/20 09:20 Completed CHEST W/WO CONTRAST [CT] Urgent Exams 07/06/20 09:20 Completed ECHO W/2D AND DOPPLER [US] Routine Exams 07/06/20 10:44 Taken Multi-Disciplinary Progress Notes: Multi-Disciplinary Progress Notes 07/06/20 12:10 (created 07/06/20 12:14) Case Management Note by Adamaris Warren DR. ROUNDED AND EVALUATED. DISCUSSED TESTING/TREATMENT WITH PT. PT VERBALIZED UNDERSTANDING OF INFORMATION AND AGREEABLE TO PLAN. DENIES ADDNL NEEDS AT PRESENT TIME. DR. HEREDIA REPORTS THAT PT WILL LIKELY NEED TO BE IN THE HOSPITAL FOR A FEW MORE DAYS OF TREATMENT. Initialized on 07/06/20 12:14 - END OF NOTE 07/06/20 10:14 Case Management Note by Jenn Hardwick PATIENT ACUTELY ILL- WILL CONTINUE TO FOLLOW FOR ANY NEEDS CLOSER TO TIME OF DC Initialized on 07/06/20 10:14 - END OF NOTE Assessment/Plan (1) Sepsis due to Staphylococcus aureus Current Visit: Yes Status: Acute Assessment & Plan: Chief Complaint Diagnosis SEPTICEMIA Allergies Allergy/AdvReac Type Severity Reaction Status Date / Time No Known Drug Allergies Allergy Verified 07/01/20 15:37 Vital Signs (Last 24 hours) Temp Pulse Resp BP Pulse Ox 07/06/20 12:00 97.9 F 103 H 16 154/74 96 07/06/20 07:44 99.6 F 99 H 16 139/70 96 07/06/20 07:05 101 H 18 97 07/06/20 04:00 99 F 97 H 22 156/81 100 07/06/20 00:00 98.9 F 103 H 24 146/70 95 07/05/20 20:19 97 H 16 98 07/05/20 19:45 98.7 F 107 H 16 154/78 98 07/05/20 16:00 80 20 138/88 100 Current Medications Generic Name Dose Route Start Last Admin Trade Name Freq PRN Reason Stop Dose Admin Acetaminophen 650 mg 07/03/20 11:25 07/06/20 11:25 Tylenol 325 Mg PO 08/02/20 11:24 650 mg Q4H PRN PRN Administration PAIN AND/OR FEVER Albuterol Sulfate 2 puff 07/03/20 14:24 Ventolin Common Canister IH 08/02/20 14:23 Q4H PRN PRN SHORTNESS OF BREATH/WHEEZING Bupropion HCl 150 mg 07/04/20 10:00 07/06/20 11:25 Wellbutrin Sr 150 Mg PO 08/03/20 09:59 150 mg DAILY SELENE Administration Device 1 07/07/20 09:30 Trough Drug Levels IJ 07/07/20 09:31 1XONLY ONE Sodium Chloride 1,000 mls @ 125 mls/hr 07/03/20 11:25 07/06/20 04:29 Sodium Chloride 0.9% 1000 Ml IV 08/02/20 11:24 125 mls/hr .Q8H SELENE Administration Ceftriaxone Sodium/Dextrose 1 g in 50 mls @ 100 mls/hr 07/03/20 11:25 07/06/20 11:24 Rocephin 1 Gm-D5w 50 Ml Bag IV 07/08/20 11:24 100 mls/hr Q24H10 SELENE Administration Vancomycin HCl 1 gm in 200 mls @ 125 mls/hr 07/05/20 22:00 07/06/20 12:27 Vancomycin 1 Gram/200 Ml Bag IV 08/04/20 21:59 125 mls/hr Q12H SELENE Administration Ketorolac Tromethamine 10 mg 07/04/20 10:00 07/06/20 11:24 Toradol 10 Mg Tablet PO 07/08/20 22:01 10 mg TID SELENE Administration Lisinopril 10 mg 07/04/20 10:00 07/06/20 11:25 Zestril 10 Mg PO 08/03/20 09:59 10 mg DAILY SELENE Administration Montelukast Sodium 10 mg 07/04/20 10:00 07/06/20 11:24 Singulair 10 Mg PO 08/03/20 09:59 10 mg DAILY SELENE Administration Multivitamins Therapeutic 1 tab 07/04/20 10:00 07/06/20 11:25 Theragran Multivitamin PO 08/03/20 09:59 1 tab DAILY SELENE Administration Ondansetron HCl 4 mg 07/03/20 11:25 Zofran 4 Mg/2 Ml Vial IV 08/02/20 11:24 Q6H PRN PRN NAUSEA/VOMITING Pantoprazole Sodium 40 mg 07/04/20 10:00 07/06/20 11:24 Protonix 40mg Tablet PO 08/03/20 09:59 40 mg DAILY SELENE Administration Terbinafine HCl 250 mg 07/04/20 10:00 07/06/20 11:25 Lamisil 250 Mg PO 08/03/20 09:59 250 mg DAILY SELENE Administration Discontinued Medications Generic Name Dose Route Start Last Admin Trade Name Freq PRN Reason Stop Dose Admin Albuterol/Ipratropium 3 ml 07/03/20 11:25 Duoneb 0.5-3 Mg/3 Ml Neb IH 08/02/20 11:24 Q4HPRN PRN SHORTNESS OF BREATH/WHEEZING Hydromorphone HCl 1 mg 07/03/20 05:53 07/03/20 06:06 Hydromorphone 1 Mg/Ml Injection IV 07/03/20 05:54 1 mg STAT ONE Administration Hydromorphone HCl Confirm 07/03/20 05:58 Hydromorphone 1 Mg/Ml Injection Administered 07/03/20 05:59 Dose 1 mg .ROUTE .STK-MED ONE Ceftriaxone Sodium/Dextrose 1 g in 50 mls @ 100 mls/hr 07/03/20 05:54 07/03/20 07:38 Rocephin 1 Gm-D5w 50 Ml Bag IV 07/03/20 06:23 Infused STAT STA Infusion Sodium Chloride 1,000 mls @ 999 mls/hr 07/03/20 06:00 07/03/20 07:38 Sodium Chloride 0.9% 1000 Ml IV 07/03/20 07:00 Infused .Q1H1M STA Infusion Sodium Chloride Confirm 07/03/20 05:58 Sodium Chloride 0.9% 1000 Ml Administered 07/03/20 05:59 Dose 1,000 mls @ ud .ROUTE .STK-MED ONE Ceftriaxone Sodium/Dextrose Confirm 07/03/20 05:59 Rocephin 1 Gm-D5w 50 Ml Bag Administered 07/03/20 06:00 Dose 1 g in 50 mls @ ud IV .STK-MED ONE Sodium Chloride 1,000 mls @ 999 mls/hr 07/03/20 06:53 07/03/20 08:53 Sodium Chloride 0.9% 1000 Ml IV 07/03/20 07:53 Infused .Q1H1M STA Infusion Sodium Chloride Confirm 07/03/20 07:31 Sodium Chloride 0.9% 1000 Ml Administered 07/03/20 07:32 Dose 1,000 mls @ ud .ROUTE .STK-MED ONE Vancomycin HCl 1.25 gm in 250 mls @ 150 mls/hr 07/05/20 10:00 07/05/20 09:58 Vancomycin 1.25 Gm/250 Ml Bag IV 07/05/20 11:39 150 mls/hr NOW ONE Administration Ibuprofen 400 mg 07/04/20 00:00 07/03/20 23:23 Motrin 400 Mg PO 07/04/20 00:01 400 mg ONCE ONE Administration Methylprednisolone Sodium Succinate 125 mg 07/03/20 05:54 07/03/20 06:05 Solu-Medrol 125 Mg IV 07/03/20 05:55 125 mg STAT ONE Administration Methylprednisolone Sodium Succinate Confirm 07/03/20 05:58 Solu-Medrol 125 Mg Administered 07/03/20 05:59 Dose 125 mg .ROUTE .STK-MED ONE Morphine Sulfate 2 mg 07/03/20 11:25 07/05/20 04:40 Morphine Sulfate 2 Mg Inj IV 07/08/20 11:24 2 mg Q4H PRN PRN Administration PAIN Nitrofurantoin Macrocrystals 100 mg 07/04/20 10:00 07/05/20 07:38 Macrobid 100mg Capsule PO 08/03/20 09:59 100 mg BIDWM SELENE Administration Non-Formulary Medication 1 each 07/05/20 09:27 07/05/20 09:44 Pharmacy Dosing Request 07/05/20 09:28 1 each STAT ONE Administration Ondansetron HCl 4 mg 07/03/20 05:53 07/03/20 06:05 Zofran 4 Mg/2 Ml Vial IV 07/03/20 05:54 4 mg STAT ONE Administration Ondansetron HCl Confirm 07/03/20 05:58 Zofran 4 Mg/2 Ml Vial Administered 07/03/20 05:59 Dose 4 mg .ROUTE .STK-MED ONE Pantoprazole Sodium 40 mg 07/03/20 11:25 07/03/20 12:49 Protonix 40 Mg Iv IV 08/02/20 11:24 40 mg Q24H10 SELENE Administration Intake & Output (Last 24 hours) 07/04/20 07/05/20 07/06/20 07/07/20 11:59 11:59 11:59 11:59 Intake Total 2223 4603 5089 Output Total 1000 1350 1450 Balance 1223 3253 3639 Microbiology Results (Last 24 hours) 07/05/20 06:00 Urine, Void Urine Culture - Final NO GROWTH Laboratory Results (Last 24 hours) 07/06/20 07/06/20 07/06/20 04:48 04:00 04:00 WBC 30.7 H* RBC 4.61 Hgb 10.8 L Hct 31.2 L MCV 67.7 L MCH 23.4 L MCHC 34.6 RDW 14.6 H Plt Count 108 L D MPV 10.4 Sodium 126 L Potassium 3.6 Chloride 101 Carbon Dioxide 21 L Anion Gap 7.7 BUN 14 Creatinine 0.54 Estimated GFR > 60.0 Glucose 102 Calcium 8.2 L Total Bilirubin 1.00 AST 53 H ALT 39 H Alkaline Phosphatase 212 H Serum Total Protein 4.8 L Albumin 2.1 L Procalcitonin 1.280 H Slides for Path Review YES Orders (Last 24 hours) Category Date Time Status NPO Diet 07/06/20 09:22 Active ABDOMEN AND PELVIS W&WO CONTRA [CT] Urgent Exams 07/06/20 09:20 Completed CHEST W/WO CONTRAST [CT] Urgent Exams 07/06/20 09:20 Completed ECHO W/2D AND DOPPLER [US] Routine Exams 07/06/20 10:44 Taken CBC Routine Lab 07/06/20 04:00 Results CBC W DIFF AM.LAB Lab 07/07/20 04:00 Ordered CMP AM.LAB Lab 07/07/20 04:00 Ordered CMP Routine Lab 07/06/20 04:00 Completed PROCALCITONIN DAILY Lab 07/06/20 04:48 Completed PROCALCITONIN DAILY Lab 07/07/20 06:00 Ordered PROCALCITONIN DAILY Lab 07/08/20 06:00 Ordered PROCALCITONIN DAILY Lab 07/09/20 06:00 Ordered PROCALCITONIN DAILY Lab 07/10/20 06:00 Ordered PROCALCITONIN DAILY Lab 07/11/20 06:00 Ordered PROCALCITONIN DAILY Lab 07/12/20 06:00 Ordered Pathologist Review Routine Lab 07/06/20 04:00 Results Vancomycin, Trough Urgent Lab 07/07/20 09:30 Ordered Therapuetic Drug Level Monitor [Trough Drug Levels] Med 07/07/20 09:30 Once 1 IJ 1XONLY ONE Vancomycin/Water For Inj (Peg) [Vancomycin 1 Gram/200 Med 07/05/20 22:00 Active ml Bag] 1 gm in 200 ml IV Q12H Patient Care Notes (Last 24 hours) 07/06/20 12:10 (created 07/06/20 12:14) Case Management Note by Adamaris Warren DR. ROUNDED AND EVALUATED. DISCUSSED TESTING/TREATMENT WITH PT. PT VERBALIZED UNDERSTANDING OF INFORMATION AND AGREEABLE TO PLAN. DENIES ADDNL NEEDS AT PRESENT TIME. DR. HEREDIA REPORTS THAT PT WILL LIKELY NEED TO BE IN THE HOSPITAL FOR A FEW MORE DAYS OF TREATMENT. Initialized on 07/06/20 12:14 - END OF NOTE 07/06/20 10:14 Case Management Note by Jenn Hardwick PATIENT ACUTELY ILL- WILL CONTINUE TO FOLLOW FOR ANY NEEDS CLOSER TO TIME OF DC Initialized on 07/06/20 10:14 - END OF NOTE (2) Acute UTI (urinary tract infection) Current Visit: Yes Status: Acute Code(s): N39.0 - URINARY TRACT INFECTION, SITE NOT SPECIFIED (3) Recurrent low back pain Current Visit: Yes Status: Acute Code(s): M54.5 - LOW BACK PAIN (4) Degenerative disc disease Current Visit: No Status: Chronic Qualifiers: Spinal region: lumbosacral Qualified Code(s): M51.37 - Other intervertebral disc degeneration, lumbosacral region Code(s): [id number] - (5) Lumbosacral strain Current Visit: No Status: Chronic Code(s): S39.012A - STRAIN OF MUSCLE, FASCIA AND TENDON OF LOWER BACK, INIT
--- NOTE | 2020-07-06 15:32 | ECHO ---
Transthoracic echocardiographic examination and color Doppler was done on 07/06/2020. INDICATION: Leukocytosis, IV drug abuser. IMPRESSION: 1) NO REGIONAL WALL MOTION ABNORMALITY. ESTIMATED GLOBAL LEFT VENTRICULAR EJECTION FRACTION OF AROUND 60 TO 65%. 2) MILD MITRAL REGURGITATION. 3) SUSPICIOUS FOR MITRAL VALVE VEGETATION. 4) AORTIC VALVE SCLEROSIS. PEAK TRANSAORTIC GRADIENT OF 23 MM OF MERCURY. 5) TRACE TRICUSPID REGURGITATION WITH RIGHT VENTRICULAR SYSTOLIC PRESSURE OF 46 MM OF MERCURY(?). 6) LEFT VENTRICULAR HYPERTROPHY. The left ventricle is visualized and demonstrated adequate motion of all the segments. Estimated global left ventricular ejection fraction around 60-65%. There is concentric left ventricular hypertrophy. The mitral valve appears thickened with tissue mass on the mitral leaflets. There is associated mitral regurgitation to mild degree. The left atrium appears to be normal. The aortic valve is sclerotic and opens adequately. The peak gradient across the aortic valve is about 23 mm of Mercury. The right side chambers are normal. There is trace tricuspid regurgitation. The right ventricular systolic pressure of 46 mm of Mercury(?). If infectious endocarditis is clinically suspected suggest a transesophageal echocardiography. Suggest blood cultures.
[2020-07-06 16:07] VITALS: BP 132/79; PULSE 89; O2SAT 99
--- NOTE | 2020-07-06 17:55 | PCM.DS ---
Discharge Summary Date of Admission: 07/05/20 07:25 Admitting Physician: ATUL HEREDIA Primary Care Provider: ATUL HEREDIA Allergies Allergies No Known Drug Allergies Allergy (Verified 07/01/20 15:37) Hospital Summary - Hospital Course Hospital Course: Chief Complaint Diagnosis SEPTICEMIA Allergies Allergy/AdvReac Type Severity Reaction Status Date / Time No Known Drug Allergies Allergy Verified 07/01/20 15:37 Vital Signs (Last 24 hours) Temp Pulse Resp BP Pulse Ox 07/06/20 16:00 97.9 F 89 18 132/79 99 07/06/20 12:00 97.9 F 103 H 16 154/74 96 07/06/20 07:44 99.6 F 99 H 16 139/70 96 07/06/20 07:05 101 H 18 97 07/06/20 04:00 99 F 97 H 22 156/81 100 07/06/20 00:00 98.9 F 103 H 24 146/70 95 07/05/20 20:19 97 H 16 98 07/05/20 19:45 98.7 F 107 H 16 154/78 98 Current Medications Generic Name Dose Route Start Last Admin Trade Name Freq PRN Reason Stop Dose Admin Acetaminophen 650 mg 07/03/20 11:25 07/06/20 11:25 Tylenol 325 Mg PO 08/02/20 11:24 650 mg Q4H PRN PRN Administration PAIN AND/OR FEVER Albuterol Sulfate 2 puff 07/03/20 14:24 Ventolin Common Canister IH 08/02/20 14:23 Q4H PRN PRN SHORTNESS OF BREATH/WHEEZING Bupropion HCl 150 mg 07/04/20 10:00 07/06/20 11:25 Wellbutrin Sr 150 Mg PO 08/03/20 09:59 150 mg DAILY SELENE Administration Device 1 07/07/20 09:30 Trough Drug Levels IJ 07/07/20 09:31 1XONLY ONE Sodium Chloride 1,000 mls @ 125 mls/hr 07/03/20 11:25 07/06/20 04:29 Sodium Chloride 0.9% 1000 Ml IV 08/02/20 11:24 125 mls/hr .Q8H SELENE Administration Ceftriaxone Sodium/Dextrose 1 g in 50 mls @ 100 mls/hr 07/03/20 11:25 07/06/20 11:24 Rocephin 1 Gm-D5w 50 Ml Bag IV 07/08/20 11:24 100 mls/hr Q24H10 SELENE Administration Vancomycin HCl 1 gm in 200 mls @ 125 mls/hr 07/05/20 22:00 07/06/20 12:27 Vancomycin 1 Gram/200 Ml Bag IV 08/04/20 21:59 125 mls/hr Q12H SELENE Administration Ketorolac Tromethamine 10 mg 07/04/20 10:00 07/06/20 14:27 Toradol 10 Mg Tablet PO 07/08/20 22:01 10 mg TID SELENE Administration Lisinopril 10 mg 07/04/20 10:00 07/06/20 11:25 Zestril 10 Mg PO 08/03/20 09:59 10 mg DAILY SELENE Administration Montelukast Sodium 10 mg 07/04/20 10:00 07/06/20 11:24 Singulair 10 Mg PO 08/03/20 09:59 10 mg DAILY SELENE Administration Multivitamins Therapeutic 1 tab 07/04/20 10:00 07/06/20 11:25 Theragran Multivitamin PO 08/03/20 09:59 1 tab DAILY SELENE Administration Ondansetron HCl 4 mg 07/03/20 11:25 Zofran 4 Mg/2 Ml Vial IV 08/02/20 11:24 Q6H PRN PRN NAUSEA/VOMITING Pantoprazole Sodium 40 mg 07/04/20 10:00 07/06/20 11:24 Protonix 40mg Tablet PO 08/03/20 09:59 40 mg DAILY SELENE Administration Terbinafine HCl 250 mg 07/04/20 10:00 07/06/20 11:25 Lamisil 250 Mg PO 08/03/20 09:59 250 mg DAILY SELENE Administration Discontinued Medications Generic Name Dose Route Start Last Admin Trade Name Freq PRN Reason Stop Dose Admin Albuterol/Ipratropium 3 ml 07/03/20 11:25 Duoneb 0.5-3 Mg/3 Ml Neb IH 08/02/20 11:24 Q4HPRN PRN SHORTNESS OF BREATH/WHEEZING Hydromorphone HCl 1 mg 07/03/20 05:53 07/03/20 06:06 Hydromorphone 1 Mg/Ml Injection IV 07/03/20 05:54 1 mg STAT ONE Administration Hydromorphone HCl Confirm 07/03/20 05:58 Hydromorphone 1 Mg/Ml Injection Administered 07/03/20 05:59 Dose 1 mg .ROUTE .STK-MED ONE Ceftriaxone Sodium/Dextrose 1 g in 50 mls @ 100 mls/hr 07/03/20 05:54 07/03/20 07:38 Rocephin 1 Gm-D5w 50 Ml Bag IV 07/03/20 06:23 Infused STAT STA Infusion Sodium Chloride 1,000 mls @ 999 mls/hr 07/03/20 06:00 07/03/20 07:38 Sodium Chloride 0.9% 1000 Ml IV 07/03/20 07:00 Infused .Q1H1M STA Infusion Sodium Chloride Confirm 07/03/20 05:58 Sodium Chloride 0.9% 1000 Ml Administered 07/03/20 05:59 Dose 1,000 mls @ ud .ROUTE .STK-MED ONE Ceftriaxone Sodium/Dextrose Confirm 07/03/20 05:59 Rocephin 1 Gm-D5w 50 Ml Bag Administered 07/03/20 06:00 Dose 1 g in 50 mls @ ud IV .STK-MED ONE Sodium Chloride 1,000 mls @ 999 mls/hr 07/03/20 06:53 07/03/20 08:53 Sodium Chloride 0.9% 1000 Ml IV 07/03/20 07:53 Infused .Q1H1M STA Infusion Sodium Chloride Confirm 07/03/20 07:31 Sodium Chloride 0.9% 1000 Ml Administered 07/03/20 07:32 Dose 1,000 mls @ ud .ROUTE .STK-MED ONE Vancomycin HCl 1.25 gm in 250 mls @ 150 mls/hr 07/05/20 10:00 07/05/20 09:58 Vancomycin 1.25 Gm/250 Ml Bag IV 07/05/20 11:39 150 mls/hr NOW ONE Administration Ibuprofen 400 mg 07/04/20 00:00 07/03/20 23:23 Motrin 400 Mg PO 07/04/20 00:01 400 mg ONCE ONE Administration Methylprednisolone Sodium Succinate 125 mg 07/03/20 05:54 07/03/20 06:05 Solu-Medrol 125 Mg IV 07/03/20 05:55 125 mg STAT ONE Administration Methylprednisolone Sodium Succinate Confirm 07/03/20 05:58 Solu-Medrol 125 Mg Administered 07/03/20 05:59 Dose 125 mg .ROUTE .STK-MED ONE Morphine Sulfate 2 mg 07/03/20 11:25 07/05/20 04:40 Morphine Sulfate 2 Mg Inj IV 07/08/20 11:24 2 mg Q4H PRN PRN Administration PAIN Nitrofurantoin Macrocrystals 100 mg 07/04/20 10:00 07/05/20 07:38 Macrobid 100mg Capsule PO 08/03/20 09:59 100 mg BIDWM SELENE Administration Non-Formulary Medication 1 each 07/05/20 09:27 07/05/20 09:44 Pharmacy Dosing Request 07/05/20 09:28 1 each STAT ONE Administration Ondansetron HCl 4 mg 07/03/20 05:53 07/03/20 06:05 Zofran 4 Mg/2 Ml Vial IV 07/03/20 05:54 4 mg STAT ONE Administration Ondansetron HCl Confirm 07/03/20 05:58 Zofran 4 Mg/2 Ml Vial Administered 07/03/20 05:59 Dose 4 mg .ROUTE .STK-MED ONE Pantoprazole Sodium 40 mg 07/03/20 11:25 07/03/20 12:49 Protonix 40 Mg Iv IV 08/02/20 11:24 40 mg Q24H10 SELENE Administration Intake & Output (Last 24 hours) 07/04/20 07/05/20 07/06/20 07/07/20 11:59 11:59 11:59 11:59 Intake Total 2223 4603 5089 380 Output Total 1000 1350 1450 650 Balance 1223 3253 3639 -270 Microbiology Results (Last 24 hours) 07/05/20 06:00 Urine, Void Urine Culture - Final NO GROWTH Laboratory Results (Last 24 hours) 07/06/20 07/06/20 07/06/20 04:48 04:00 04:00 WBC 30.7 H* RBC 4.61 Hgb 10.8 L Hct 31.2 L MCV 67.7 L MCH 23.4 L MCHC 34.6 RDW 14.6 H Plt Count 108 L D MPV 10.4 Smear Path Review Sodium 126 L Potassium 3.6 Chloride 101 Carbon Dioxide 21 L Anion Gap 7.7 BUN 14 Creatinine 0.54 Estimated GFR > 60.0 Glucose 102 Calcium 8.2 L Total Bilirubin 1.00 AST 53 H ALT 39 H Alkaline Phosphatase 212 H Serum Total Protein 4.8 L Albumin 2.1 L Procalcitonin 1.280 H Slides for Path Review YES Orders (Last 24 hours) Category Date Time Status House Regular Diet Diet 07/06/20 Lunch Active NPO Diet 07/06/20 09:22 Completed Discharge Routine Discharge 07/06/20 Ordered ABDOMEN AND PELVIS W&WO CONTRA [CT] Urgent Exams 07/06/20 09:20 Completed CHEST W/WO CONTRAST [CT] Urgent Exams 07/06/20 09:20 Completed ECHO W/2D AND DOPPLER [US] Routine Exams 07/06/20 10:44 Draft CA 19-9 Urgent Lab 07/06/20 15:00 Received CBC Routine Lab 07/06/20 04:00 Completed CBC W DIFF AM.LAB Lab 07/07/20 04:00 Ordered CEA Urgent Lab 07/06/20 15:00 Received CMP AM.LAB Lab 07/07/20 04:00 Ordered CMP Routine Lab 07/06/20 04:00 Completed Cancer Antigen (CA) 125 Urgent Lab 07/06/20 15:00 Received Cancer Antigen 15-3 Urgent Lab 07/06/20 15:00 Received PROCALCITONIN DAILY Lab 07/06/20 04:48 Completed PROCALCITONIN DAILY Lab 07/07/20 06:00 Ordered PROCALCITONIN DAILY Lab 07/08/20 06:00 Ordered PROCALCITONIN DAILY Lab 07/09/20 06:00 Ordered PROCALCITONIN DAILY Lab 07/10/20 06:00 Ordered PROCALCITONIN DAILY Lab 07/11/20 06:00 Ordered PROCALCITONIN DAILY Lab 07/12/20 06:00 Ordered Pathologist Review Routine Lab 07/06/20 04:00 Completed Vancomycin, Trough Urgent Lab 07/07/20 09:30 Ordered Therapuetic Drug Level Monitor [Trough Drug Levels] Med 07/07/20 09:30 Once 1 IJ 1XONLY ONE Vancomycin/Water For Inj (Peg) [Vancomycin 1 Gram/200 Med 07/05/20 22:00 Active ml Bag] 1 gm in 200 ml IV Q12H Patient Care Notes (Last 24 hours) 07/06/20 17:17 Nursing Note by Danielle Kinsey [facility] CALLED FOR TRANSPORT 07/06/20 @ 1717 Initialized on 07/06/20 17:17 - END OF NOTE 07/06/20 14:44 Case Management Note by Adamaris Warren CALL TO DR. HEREDIA TO INFORM OF DR. 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 N/O RECEIVED TO TRANSFER PT TO [facility]. [facility] CALLED PER DR HEREDIA ORDERS TO TRANSFER PT FOR I.D. AND CARDIOLOGY PER DR. 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 UPDATED PT THAT DR. HEREDIA FEELS THAT IT IS MEDICALLY NECESSARY FOR HER TO TRANSFER TO [facility] FOR CONSULTS FROM I.D. AND CARDIOLOGY. PT VERBALIZED UNDERSTANDING AND IS AGREEABLE TO THIS PLAN. PT REPORTS THAT SHE WILL CALL HER MOTHER AND LET HER KNOW. Initialized on 07/06/20 14:44 - END OF NOTE 07/06/20 13:55 (created 07/06/20 14:49) Case Management Note by Adamaris Warren SPOKE WITH PT AND MOTHER REGARDING ORDERS FOR ADDNL LABS TO BE DRAWN. PT AND MOM VERBALIZED UNDERSTANDING AND AGREE TO ADDNL TESTING. Initialized on 07/06/20 14:49 - END OF NOTE 07/06/20 13:30 (created 07/06/20 14:48) Case Management Note by Adamaris Warren CT SCAN RESULTS CALLED TO DR. HEREDIA, N/O RECEIVED. Initialized on 07/06/20 14:48 - END OF NOTE 07/06/20 12:10 (created 07/06/20 12:14) Case Management Note by Adamaris Warren DR. ROUNDED AND EVALUATED. DISCUSSED TESTING/TREATMENT WITH PT. PT VERBALIZED UNDERSTANDING OF INFORMATION AND AGREEABLE TO PLAN. DENIES ADDNL NEEDS AT PRESENT TIME. DR. HEREDIA REPORTS THAT PT WILL LIKELY NEED TO BE IN THE HOSPITAL FOR A FEW MORE DAYS OF TREATMENT. Initialized on 07/06/20 12:14 - END OF NOTE 07/06/20 10:14 Case Management Note by Jenn Hardwick PATIENT ACUTELY ILL- WILL CONTINUE TO FOLLOW FOR ANY NEEDS CLOSER TO TIME OF DC Initialized on 07/06/20 10:14 - END OF NOTE patient echocardiogram just says a possible mitral valve vegetation. Patient blood culture is growing Staphylococcus Aureus. Patient CT abdomen and pelvis. and Chest did reveal Pleural effusion as well as loculated ascites.. Will transfer paient to [facility] for further cardiac and Infectious disease consultation. - Vitals & Intake/Output Vital Signs: Vital Signs Temperature 97.9 F 07/06/20 16:00 Pulse Rate 89 07/06/20 16:00 Respiratory Rate 18 07/06/20 16:00 Blood Pressure 132/79 07/06/20 16:00 O2 Sat by Pulse Oximetry 99 07/06/20 16:00 Intake & Output: Intake & Output 07/04/20 07/05/20 07/06/20 07/07/20 11:59 11:59 11:59 11:59 Intake Total 2223 4603 5089 380 Output Total 1000 1350 1450 650 Balance 1223 3253 3639 -270 - Lab Result Diagrams: 07/06/20 04:00 07/06/20 04:00 Lab Results-Last 24 Hrs: Lab Results-Last 24 Hours 07/06/20 07/06/20 07/06/20 Range/Units 04:00 04:00 04:48 WBC 30.7 H* (4.0-10.5) K/mm3 RBC 4.61 (4.1-5.4) M/mm3 Hgb 10.8 L (12.0-16.0) gm/dl Hct 31.2 L (35-47) % MCV 67.7 L (78-100) fl MCH 23.4 L (26-32) pg MCHC 34.6 (32-36) g/dl RDW 14.6 H (11.5-14.0) % Plt Count 108 L D (150-450) K/mm3 MPV 10.4 (7.5-11.0) fl Smear Path Review Sodium 126 L (137-145) mmol/L Potassium 3.6 (3.5-5.1) mmol/L Chloride 101 (98-107) mmol/L Carbon Dioxide 21 L (22-30) mmol/L Anion Gap 7.7 (5-15) MEQ/L BUN 14 (7-17) mg/dL Creatinine 0.54 (0.52-1.04) mg/dL Estimated GFR > 60.0 ML/MIN Glucose 102 (74-106) mg/dL Calcium 8.2 L (8.4-10.2) mg/dL Total Bilirubin 1.00 (0.2-1.3) mg/dL AST 53 H (14-36) U/L ALT 39 H (0-35) U/L Alkaline Phosphatase 212 H (38-126) U/L Serum Total Protein 4.8 L (6.3-8.2) g/dL Albumin 2.1 L (3.5-5.0) g/dL Procalcitonin 1.280 H (0.030-0.080) ng/mL Slides for Path Review YES Micro Results-Entire Visit: Microbiology 07/05/20 06:00 Urine Culture - Final Urine, Void NO GROWTH 07/03/20 07:25 Blood Culture Gram Stain - Final Blood Blood Culture - Final Staphylococcus Aureus 07/03/20 07:05 Blood Culture - Preliminary Blood NO GROWTH TO DATE - Radiology Exams Ordered Rad Exams-Entire Visit: Radiology Procedures Category Date Time Status ABDOMEN AND PELVIS W&WO CONTRA [CT] Urgent Exams 07/06/20 09:20 Completed CHEST W/WO CONTRAST [CT] Urgent Exams 07/06/20 09:20 Completed ECHO W/2D AND DOPPLER [US] Routine Exams 07/06/20 10:44 Draft - Procedures and Test Procedures and Tests throughout Hospitalization: Therapy Orders & Screens 07/03/20 12:30 OT Screen per Nursing Assess ONCE Comment: Protocol Order Physician Instructions: Greater than 3 points order OT Admission Screening Reason For Exam: Triggered on Admission Diagnosis: UTI. hyponatremia Open Wound/Cellutlitis/Pressure Ulcers: No Severe MUSCULOSKELETAL pain: Yes ADL Dysfunction: No Acute CVA w/Hemiparesis/Hemiplegia: No Decreased Functional Mobility/Strength: Yes Sprain/Strain: Yes Acute Post-op Mobility Dysfunction: No Total Points: 9 PT Screen per Nursing Assess ONCE Comment: Protocol Order Physician Instructions: Greater than 3 points order PT Admission Screenin Reason For Exam: Triggered on Admission Diagnosis: UTI. hyponatremia Open Wound/Cellutlitis/Pressure Ulcers: No Severe MUSCULOSKELETAL pain: Yes ADL Dysfunction: No Acute CVA w/Hemiparesis/Hemiplegia: No Decreased Functional Mobility/Strength: Yes Sprain/Strain: Yes Acute Post-op Mobility Dysfunction: No Total Points: 9 Smoking Cessation Education ONCE Comment: Diagnosis: UTI. hyponatremia Smoking Status: Current every day smoker Have you smoked in the past 12 months: Yes Do you dip or chew tobacco: No 07/03/20 14:26 Respiratory Therapy Assessment DAILY Comment: Diagnosis: UTI. hyponatremia 07/03/20 14:31 Flutter Therapy UD Comment: Diagnosis: UTI. hyponatremia Discharge Exam General Appearance: no apparent distress, alert Neurologic Exam: alert, oriented x 3, cooperative, normal mood/affect, nml cerebellar function, sensation nml, No motor deficits Eye Exam: PERRL, EOMI, eyes nml inspection Ears, Nose, Throat Exam: normal ENT inspection, pharynx normal, moist mucous membranes Neck Exam: normal inspection, non-tender, supple, full range of motion Respiratory Exam: normal breath sounds, lungs clear, No respiratory distress Cardiovascular Exam: regular rate/rhythm, normal heart sounds Gastrointestinal/Abdomen Exam: soft, No tenderness, No mass Pelvic Exam: deferred Rectal Exam: deferred Back Exam: normal inspection, normal range of motion, No CVA tenderness, No vertebral tenderness Extremity Exam: normal inspection, normal range of motion Skin Exam: normal color, warm, dry Final Diagnosis/Problem List - Final Discharge Diagnosis/Problem (1) Acute infective endocarditis Current Visit: Yes Status: Acute Priority: High Assessment & Plan: Medication Adminisitration Report Acetaminophen (Tylenol 325 Mg) 650 mg PO Q4H PRN PRN PRN Reason: PAIN AND/OR FEVER Stop: 08/02/20 11:24 Last Admin: 07/06/20 11:25 Dose: 650 mg Documented by: BELKIS WEBSTER PAIN Document 07/06/20 11:25 Mavis (Rec: 07/06/20 11:25 Mavis [id number]) Reassesment Pain Scale Used 0-10 Pain Scale Pain Intensity (0-10) 5 Re-Assess: Pain Reassessment Document 07/06/20 11:55 YADI (Rec: 07/06/20 12:15 Mavis [id number]) Pain Description Pain Scale Used 0-10 Pain Scale Pain Intensity (0-10) 2 Admin: 07/04/20 09:53 Dose: 650 mg Documented by: PACHECO WEBSTER PAIN Document 07/04/20 09:53 BA (Rec: 07/04/20 09:53 BA [id number]) Reassesment Pain Site Lower,Medial Location Back Pain Scale Used 0-10 Pain Scale Pain Intensity (0-10) 9 Re-Assess: Pain Reassessment Document 07/04/20 10:23 BA (Rec: 07/04/20 12:55 BA [id number]) Pain Description Pain Scale Used 0-10 Pain Scale Pain Intensity (0-10) 5 Admin: 07/03/20 21:44 Dose: 650 mg Documented by: MGEASTON MAR PAIN Document 07/03/20 21:44 MG (Rec: 07/03/20 21:45 MG [id number]) Reassesment Pain Site Lower Location Back Pain Scale Used 0-10 Pain Scale Pain Intensity (0-10) 9 Re-Assess: Pain Reassessment Document 07/03/20 22:14 MG (Rec: 07/04/20 03:44 MG [id number]) Pain Description Pain Scale Used 0-10 Pain Scale Pain Intensity (0-10) 9 Admin: 07/03/20 17:07 Dose: 650 mg Documented by: PACHECO MAR PAIN Document 07/03/20 17:07 BA (Rec: 07/03/20 17:08 BA [id number]) Reassesment Pain Site Lower Location Back Pain Scale Used 0-10 Pain Scale Albuterol Sulfate (Ventolin Common Canister) 2 puff IH Q4H PRN PRN PRN Reason: SHORTNESS OF BREATH/WHEEZING Stop: 08/02/20 14:23 Bupropion HCl (Wellbutrin Sr 150 Mg) 150 mg PO DAILY [facility] Stop: 08/03/20 09:59 Last Admin: 07/06/20 11:25 Dose: 150 mg Documented by: BELKIS Comments: late due to being npo for CT Admin: 07/05/20 09:58 Dose: 150 mg Documented by: Admin: 07/04/20 09:52 Dose: 150 mg Documented by: PACHECO Device (Trough Drug Levels) 1 IJ 1XONLY ONE Stop: 07/07/20 09:31 Sodium Chloride (Sodium Chloride 0.9% 1000 Ml) 1,000 mls @ 125 mls/hr IV .Q8H SELENE Stop: 08/02/20 11:24 Last Admin: 07/06/20 04:29 Dose: 125 mls/hr Documented by: BRANT Infusion/Titration Document 07/06/20 04:29 VL (Rec: 07/06/20 04:29 VL [id number]) Dosing & Rate IV Rate 125 Increase/Decrease Started/Running Cumulative Dose Not Applicable IV Intake Cumulative Intake (Rx) 8,000 Container Volume 1,000 Volume Adjustment/Waste 0 Infusion: 07/06/20 04:29 Dose: 125 mls/hr Documented by: VLEFFLER Infusion/Titration Document 07/06/20 04:29 VL (Rec: 07/06/20 04:29 VL [id number]) Dosing & Rate IV Rate 125 Increase/Decrease Infused Cumulative Dose Not Applicable IV Intake Infusion Intake 1,000 Cumulative Intake (Bag) 1,000 Cumulative Intake (Rx) 8,000 Container Volume 0 Volume Adjustment/Waste 0 Admin: 07/06/20 04: Dose: 125 mls/hr Documented by: VLEFFLER Infusion/Titration Document 07/06/20 04:21 VL (Rec: 07/06/20 04: VL [id number]) Dosing & Rate IV Rate 125 Increase/Decrease Started/Running Cumulative Dose Not Applicable IV Intake Cumulative Intake (Rx) 7,000 Container Volume 1,000 Volume Adjustment/Waste 0 Infusion: 07/06/20 04:21 Dose: 125 mls/hr Documented by: VLEFFLER Infusion/Titration Document 07/06/20 04:21 VL (Rec: 07/06/20 04: VL [id number]) Dosing & Rate IV Rate 125 Increase/Decrease Infused Cumulative Dose Not Applicable IV Intake Infusion Intake 1,000 Cumulative Intake (Bag) 1,000 Cumulative Intake (Rx) 7,000 Container Volume 0 Volume Adjustment/Waste 0 Admin: 07/05/20 21:29 Dose: 125 mls/hr Documented by: VLEFFLER Infusion/Titration Document 07/05/20 21:29 VL (Rec: 07/05/20 21:29 VL [id number]) Dosing & Rate IV Rate 125 Increase/Decrease Started/Running Cumulative Dose Not Applicable IV Intake Cumulative Intake (Rx) 6,000 Container Volume 1,000 Volume Adjustment/Waste 0 Infusion: 07/05/20 10:55 Dose: 125 mls/hr Documented by: VLEFFLER Infusion/Titration Document 07/05/20 10:55 VL (Rec: 07/05/20 21:29 VL [id number]) Dosing & Rate IV Rate 125 Increase/Decrease Infused Cumulative Dose Not Applicable IV Intake Infusion Intake 1,000 Cumulative Intake (Bag) 1,000 Cumulative Intake (Rx) 6,000 Container Volume 0 Volume Adjustment/Waste 0 Admin: 07/05/20 02:55 Dose: 125 mls/hr Documented by: VLEFFLER Infusion/Titration Document 07/05/20 02:55 VL (Rec: 07/05/20 02:55 VL [id number]) Dosing & Rate IV Rate 125 Increase/Decrease Started/Running Cumulative Dose Not Applicable IV Intake Cumulative Intake (Rx) 5,000 Container Volume 1,000 Volume Adjustment/Waste 0 Infusion: 07/05/20 02:55 Dose: 125 mls/hr Documented by: VLEFFLER Infusion/Titration Document 07/05/20 02:55 VL (Rec: 07/05/20 02:55 VL [id number]) Dosing & Rate IV Rate 125 Increase/Decrease Infused Cumulative Dose Not Applicable IV Intake Infusion Intake 1,000 Cumulative Intake (Bag) 1,000 Cumulative Intake (Rx) 5,000 Container Volume 0 Volume Adjustment/Waste 0 Admin: 07/04/20 21:01 Dose: 125 mls/hr Documented by: VLEFFLER Infusion/Titration Document 07/04/20 21:01 VL (Rec: 07/04/20 21:01 VL [id number]) Dosing & Rate IV Rate 125 Increase/Decrease Started/Running Cumulative Dose Not Applicable IV Intake Cumulative Intake (Rx) 4,000 Container Volume 1,000 Volume Adjustment/Waste 0 Infusion: 07/04/20 19:07 Dose: 125 mls/hr Documented by: VLEFFLER Infusion/Titration Document 07/04/20 19:07 VL (Rec: 07/04/20 21:01 VL [id number]) Dosing & Rate IV Rate 125 Increase/Decrease Infused Cumulative Dose Not Applicable IV Intake Infusion Intake 1,000 Cumulative Intake (Bag) 1,000 Cumulative Intake (Rx) 4,000 Container Volume 0 Volume Adjustment/Waste 0 Admin: 07/04/20 11:07 Dose: 125 mls/hr [facility]: [facility] Infusion/Titration Document 07/04/20 11:07 BA (Rec: 07/04/20 11:08 BA [id number]) Dosing & Rate IV Rate 125 Increase/Decrease Started/Running Cumulative Dose Not Applicable IV Intake Cumulative Intake (Rx) 3,000 Container Volume 1,000 Volume Adjustment/Waste 0 Infusion: 07/04/20 11:07 Dose: 125 mls/hr Documented by: BSTAISCH Infusion/Titration Document 07/04/20 11:07 BA (Rec: 07/04/20 11:08 BA [id number]) Dosing & Rate IV Rate 125 Increase/Decrease Infused Cumulative Dose Not Applicable IV Intake Infusion Intake 1,000 Cumulative Intake (Bag) 1,000 Cumulative Intake (Rx) 3,000 Container Volume 0 Volume Adjustment/Waste 0 Admin: 07/04/20 03:44 Dose: 125 mls/hr Documented by: MGOLDSWORT Infusion/Titration Document 07/04/20 03:44 MG (Rec: 07/04/20 03:44 MG [id number]) Dosing & Rate IV Rate 125 Increase/Decrease Started/Running Cumulative Dose Not Applicable IV Intake Cumulative Intake (Rx) 2,000 Container Volume 1,000 Volume Adjustment/Waste 0 Infusion: 07/04/20 03:44 Dose: 125 mls/hr Documented by: MGOLDSWORT Infusion/Titration Document 07/04/20 03:44 MG (Rec: 07/04/20 03:44 MG [id number]) Dosing & Rate IV Rate 125 Increase/Decrease Infused Cumulative Dose Not Applicable IV Intake Infusion Intake 1,000 Cumulative Intake (Bag) 1,000 Cumulative Intake (Rx) 2,000 Container Volume 0 Volume Adjustment/Waste 0 Admin: 07/03/20 20:27 Dose: 125 mls/hr Documented by: MGOLDSWORT Infusion/Titration Document 07/03/20 20:27 MG (Rec: 07/03/20 20:28 MG [id number]) Dosing & Rate IV Rate 125 Increase/Decrease Started/Running Cumulative Dose Not Applicable IV Intake Cumulative Intake (Rx) 1,000 Container Volume 1,000 Volume Adjustment/Waste 0 Infusion: 07/03/20 20:27 Dose: 125 mls/hr Documented by: MGOLDSWORT Infusion/Titration Document 07/03/20 20:27 MG (Rec: 07/03/20 20:28 MG [id number]) Dosing & Rate IV Rate 125 Increase/Decrease Infused Cumulative Dose Not Applicable IV Intake Infusion Intake 1,000 Cumulative Intake (Bag) 1,000 Cumulative Intake (Rx) 1,000 Container Volume 0 Volume Adjustment/Waste 0 Admin: 07/03/20 12:42 Dose: 125 mls/hr Documented by: MARIALUISAON Infusion/Titration Document 07/03/20 12:42 AR (Rec: 07/03/20 12:44 AR [id number]) Dosing & Rate IV Rate 125 Increase/Decrease Started Cumulative Dose Not Applicable IV Intake Container Volume 1,000 Volume Adjustment/Waste 0 Ceftriaxone Sodium/Dextrose (Rocephin 1 Gm-D5w 50 Ml Bag) 1 g in 50 mls @ 100 mls/hr IV Q24H10 [facility] Stop: 07/08/20 11:24 Last Admin: 07/06/20 11:24 Dose: 100 mls/hr Documented by: BELKIS Comments: late due to being in [place] Admin: 07/05/20 09:59 Dose: 100 mls/hr Documented by: Admin: 07/04/20 09:56 Dose: 100 mls/hr Documented by: Admin: 07/03/20 12:49 Dose: Not Given Documented by: DANIA Non-Admin Reason: GIVEN IN ER Vancomycin HCl (Vancomycin 1 Gram/200 Ml Bag) 1 gm in 200 mls @ 125 mls/hr IV Q12H SELENE Stop: 08/04/20 21:59 Last Admin: 07/06/20 12:27 Dose: 125 mls/hr Documented by: BELKIS Comments: late due to patient being in [place] Admin: 07/05/20 21:30 Dose: 125 mls/hr Documented by: BRANT Ketorolac Tromethamine (Toradol 10 Mg Tablet) 10 mg PO TID [facility] Stop: 07/08/20 22:01 Last Admin: 07/06/20 14:27 Dose: 10 mg Documented by: BELKIS MAR PAIN Document 07/06/20 14:27 Mavis (Rec: 07/06/20 14:28 [facility] [id number]) Reassesment Pain Scale Used 0-10 Pain Scale Pain Intensity (0-10) 4 Re-Assess: Pain Reassessment Document 07/06/20 14:57 YADI (Rec: 07/06/20 15:05 [facility] [id number]) Pain Description Pain Scale Used 0-10 Pain Scale Pain Intensity (0-10) 2 Admin: 07/06/20 11:24 Dose: 10 mg Documented by: BELKIS Comments: late due to being npo for CT Re-Assess: Pain Reassessment Document 07/06/20 11:54 HJJ (Rec: 07/06/20 12:15 HJJ [id number]) Pain Description Pain Scale Used 0-10 Pain Scale Pain Intensity (0-10) 2 Admin: 07/05/20 21:29 Dose: 10 mg Documented by: BRANT WEB[place] PAIN Document 07/05/20 21:29 VL (Rec: 07/05/20 21:30 VL [id number]) Reassesment Pain Scale Used 0-10 Pain Scale Pain Intensity (0-10) 0 Re-Assess: Pain Reassessment Document 07/05/20 21:59 VL (Rec: 07/05/20 22:28 VL [id number]) Pain Description Pain Scale Used 0-10 Pain Scale Pain Intensity (0-10) 0 Admin: 07/05/20 17:54 Dose: Not Given Documented by: [email or web address] Non-Admin Reason: Patient Asleep MAR PAIN Document 07/05/20 17:54 BA (Rec: 07/05/20 17:54 BA [id number]) Reassesment Comment sleeping. Admin: 07/05/20 10:01 Dose: 10 mg Documented by: [employer] [facility] PAIN Document 07/05/20 10:01 BA (Rec: 07/05/20 10:03 BA [id number]) Reassesment Location Generalized Pain Scale Used 0-10 Pain Scale Pain Intensity (0-10) 5 Re-Assess: Pain Reassessment Document 07/05/20 10:31 BA (Rec: 07/05/20 17:54 BA [id number]) Pain Description Pain Scale Used FLACC Comment sleeping. Admin: 07/04/20 21:00 Dose: 10 mg Documented by: BRANT WEBSTER PAIN Document 07/04/20 21:00 VL (Rec: 07/04/20 21:00 VL [id number]) Reassesment Location Generalized Pain Scale Used 0-10 Pain Scale Pain Intensity (0-10) 7 Re-Assess: Pain Reassessment Document 07/04/20 21:30 VL (Rec: 07/04/20 22:00 VL [id number]) Pain Description Pain Scale Used 0-10 Pain Scale Pain Intensity (0-10) 5 Admin: 07/04/20 15:29 Dose: 10 mg Documented by: [employer] [facility] PAIN Document 07/04/20 15:29 BA (Rec: 07/04/20 15:31 BA [id number]) Reassesment Pain Site Bilateral,Upper,Lower Location Shoulder,Arm,Leg Pain Scale Used 0-10 Pain Scale Pain Intensity (0-10) 5 Re-Assess: Pain Reassessment Document 07/04/20 15:59 BA (Rec: 07/04/20 17:11 BA [id number]) Pain Description Pain Scale Used FLACC Pain Intensity (0-10) 0 Comment sleeping. Admin: 07/04/20 09:52 Dose: 10 mg Documented by: PACHECO MAR PAIN Document 07/04/20 09:52 BA (Rec: 07/04/20 09:53 BA [id number]) Reassesment Pain Site Lower,Medial Location Back Pain Scale Used 0-10 Pain Scale Pain Intensity (0-10) 9 Re-Assess: Pain Reassessment Document 07/04/20 10:22 BA (Rec: 07/04/20 12:55 BA [id number]) Pain Description Pain Scale Used 0-10 Pain Scale Pain Intensity (0-10) 5 Lisinopril (Zestril 10 Mg) 10 mg PO DAILY SELENE Stop: 08/03/20 09:59 Last Admin: 07/06/20 11:25 Dose: 10 mg Documented by: BELKIS Comments: late due to being npo for CT Admin: 07/05/20 09:59 Dose: 10 mg Documented by: Admin: 07/04/20 09:52 Dose: 10 mg Documented by: PACHECO Montelukast Sodium (Singulair 10 Mg) 10 mg PO DAILY SELENE Stop: 08/03/20 09:59 Last Admin: 07/06/20 11:24 Dose: 10 mg Documented by: BELKIS Comments: late due to being npo for CT Admin: 07/05/20 09:59 Dose: 10 mg Documented by: Admin: 07/04/20 09:53 Dose: 10 mg Documented by: PACHECO Multivitamins Therapeutic (Theragran Multivitamin) 1 tab PO DAILY SELENE Stop: 08/03/20 09:59 Last Admin: 07/06/20 11:25 Dose: 1 tab Documented by: BELKIS Comments: late due to being npo for CT Admin: 07/05/20 09:59 Dose: 1 tab Documented by: Admin: 07/04/20 09:52 Dose: 1 tab Documented by: PACHECO Ondansetron HCl (Zofran 4 Mg/2 Ml Vial) 4 mg IV Q6H PRN PRN PRN Reason: NAUSEA/VOMITING Stop: 08/02/20 11:24 Pantoprazole Sodium (Protonix 40mg Tablet) 40 mg PO DAILY [facility] Stop: 08/03/20 09:59 Last Admin: 07/06/20 11:24 Dose: 40 mg Documented by: BELKIS Comments: late due to being npo for CT Admin: 07/05/20 09:59 Dose: 40 mg Documented by: Admin: 07/04/20 09:53 Dose: 40 mg Documented by: PACHECO Terbinafine HCl (Lamisil 250 Mg) 250 mg PO DAILY [facility] Stop: 08/03/20 09:59 Last Admin: 07/06/20 11:25 Dose: 250 mg Documented by: BELKIS Comments: late due to being NPO for CT Admin: 07/05/20 09:59 Dose: 250 mg Documented by: Admin: 07/04/20 11:08 Dose: 250 mg Documented by: PACHECO Discontinued Medications Albuterol/Ipratropium (Duoneb 0.5-3 Mg/3 Ml Neb) 3 ml IH Q4HPRN PRN PRN Reason: SHORTNESS OF BREATH/WHEEZING Stop: 08/02/20 11:24 Hydromorphone HCl (Hydromorphone 1 Mg/Ml Injection) 1 mg IV STAT ONE Stop: 07/03/20 05:54 Last Admin: 07/03/20 06:06 Dose: 1 mg Documented by: MARIBEL Med Admininistration (IV,IVP) Document 07/03/20 06:06 MIGUE (Rec: 07/03/20 06:06 MIGUE [id number]) Type of Administration Initial IV Push No IV Push-Addtl Different Drug Yes MAR PAIN Document 07/03/20 06:06 MIGUE (Rec: 07/03/20 06:06 MIGUE [id number]) Reassesment Pain Site Lower Location Back Pain Scale Used 0-10 Pain Scale Pain Intensity (0-10) 10 Management Goal (0-10) 8 Hydromorphone HCl (Hydromorphone 1 Mg/Ml Injection) Confirm Administered Dose 1 mg .ROUTE .STK-MED ONE Stop: 07/03/20 05:59 Ceftriaxone Sodium/Dextrose (Rocephin 1 Gm-D5w 50 Ml Bag) 1 g in 50 mls @ 100 mls/hr IV STAT STA Stop: 07/03/20 06:23 Last Infusion: 07/03/20 07:38 Dose: 100 mls/hr, 100 mls/hr Documented by: TREED Infusion/Titration Document 07/03/20 07:38 TR (Rec: 07/03/20 07:38 TR [id number]) Dosing & Rate Titration Dose 100 IV Rate 100 Increase/Decrease Infused Cumulative Dose 1 IV Intake Infusion Intake 50 Cumulative Intake (Bag) 50 Cumulative Intake (Rx) 50 Container Volume 0 Volume Adjustment/Waste 0 Admin: 07/03/20 06:05 Dose: 100 mls/hr, 100 mls/hr Documented by: MARIBEL Med Admininistration (IV,IVP) Document 07/03/20 06:05 KF (Rec: 07/03/20 06:05 KF [id number]) Type of Administration Initial IV Push No Infusion/Titration Document 07/03/20 06:05 KF (Rec: 07/03/20 06:05 KF [id number]) Dosing & Rate Titration Dose 100 IV Rate 100 Increase/Decrease Started IV Intake Container Volume 50 Volume Adjustment/Waste 0 Sodium Chloride (Sodium Chloride 0.9% 1000 Ml) 1,000 mls @ 999 mls/hr IV .Q1H1M STA Stop: 07/03/20 07:00 Last Infusion: 07/03/20 07:38 Dose: 999 mls/hr Documented by: TREED Infusion/Titration Document 07/03/20 07:38 TR (Rec: 07/03/20 07:38 TR [id number]) Dosing & Rate IV Rate 999 Increase/Decrease Infused Cumulative Dose Not Applicable IV Intake Infusion Intake 1,000 Cumulative Intake (Bag) 1,000 Cumulative Intake (Rx) 1,000 Container Volume 0 Volume Adjustment/Waste 0 Admin: 07/03/20 06:06 Dose: 999 mls/hr Documented by: MARIBEL Med Admininistration (IV,IVP) Document 07/03/20 06:06 KF (Rec: 07/03/20 06:06 KF [id number]) Type of Administration Initial IV Push No Infusion/Titration Document 07/03/20 06:06 KF (Rec: 07/03/20 06:06 KF [id number]) Dosing & Rate IV Rate 999 Increase/Decrease Started Cumulative Dose Not Applicable IV Intake Container Volume 1,000 Volume Adjustment/Waste 0 Re-Assess: ED IV Start & Stop Times Document 07/03/20 07:37 TR (Rec: 07/03/20 07:37 TR [id number]) IV Hydration (IV FLUIDS) IV Hydration Start Date 07/03/20 IV Hydation Start Time 06:00 IV Hydration Stop Date 07/03/20 IV Hydation Stop Time 07:00 IV Hydration Elapsed Time 60 Sodium Chloride (Sodium Chloride 0.9% 1000 Ml) Confirm Administered Dose 1,000 mls @ ud .ROUTE .STK-MED ONE Stop: 07/03/20 05:59 Ceftriaxone Sodium/Dextrose (Rocephin 1 Gm-D5w 50 Ml Bag) Confirm Administered Dose 1 g in 50 mls @ ud IV .STK-MED ONE Stop: 07/03/20 06:00 Sodium Chloride (Sodium Chloride 0.9% 1000 Ml) 1,000 mls @ 999 mls/hr IV .Q1H1M STA Stop: 07/03/20 07:53 Last Infusion: 07/03/20 08:53 Dose: 0 mls/hr Documented by: JOB Infusion/Titration Document 07/03/20 08:53 MB (Rec: 07/03/20 08:53 MB [id number]) Dosing & Rate IV Rate 0 Increase/Decrease Infused Cumulative Dose Not Applicable IV Intake Infusion Intake 1,000 Cumulative Intake (Bag) 1,000 Cumulative Intake (Rx) 1,000 Container Volume 0 Volume Adjustment/Waste 0 Admin: 07/03/20 07:37 Dose: 999 mls/hr Documented by: TREED Med Admininistration (IV,IVP) Document 07/03/20 07:37 TR (Rec: 07/03/20 07:37 TR [id number]) Type of Administration Initial IV Push No Infusion/Titration Document 07/03/20 07:37 TR (Rec: 07/03/20 07:37 TR [id number]) Dosing & Rate IV Rate 999 Increase/Decrease Started Cumulative Dose Not Applicable IV Intake Container Volume 1,000 Volume Adjustment/Waste 0 Re-Assess: ED IV Start & Stop Times Document 07/03/20 08:52 MB (Rec: 07/03/20 08:53 MB [id number]) IV Hydration (IV FLUIDS) IV Hydration Start Date 07/03/20 IV Hydation Start Time 06:53 IV Hydration Stop Date 07/03/20 IV Hydation Stop Time 07:53 IV Hydration Elapsed Time 60 Sodium Chloride (Sodium Chloride 0.9% 1000 Ml) Confirm Administered Dose 1,000 mls @ ud .ROUTE .STK-MED ONE Stop: 07/03/20 07:32 Vancomycin HCl (Vancomycin 1.25 Gm/250 Ml Bag) 1.25 gm in 250 mls @ 150 mls/hr IV NOW ONE Stop: 07/05/20 11:39 Last Admin: 07/05/20 09:58 Dose: 150 mls/hr Documented by: BSTAISCH Ibuprofen (Motrin 400 Mg) 400 mg PO ONCE ONE Stop: 07/04/20 00:01 Last Admin: 07/03/20 23:23 Dose: 400 mg Documented by: MGOLDSJF MAR PAIN Document 07/03/20 23:23 MG (Rec: 07/03/20 23:23 MG [id number]) Reassesment Pain Site Right,Lower Location Foot,Leg Pain Scale Used 0-10 Pain Scale Pain Intensity (0-10) 9 Re-Assess: Pain Reassessment Document 07/03/20 23:53 MG (Rec: 07/04/20 03:44 MG [id number]) Pain Description Pain Scale Used 0-10 Pain Scale Pain Intensity (0-10) 9 Methylprednisolone Sodium Succinate (Solu-Medrol 125 Mg) 125 mg IV STAT ONE Stop: 07/03/20 05:55 Last Admin: 07/03/20 06:05 Dose: 125 mg Documented by: KFALBA Med Admininistration (IV,IVP) Document 07/03/20 06:05 KF (Rec: 07/03/20 06:05 KF [id number]) Type of Administration Initial IV Push No IV Push-Addtl Different Drug Yes Methylprednisolone Sodium Succinate (Solu-Medrol 125 Mg) Confirm Administered Dose 125 mg .ROUTE .STK-MED ONE Stop: 07/03/20 05:59 Morphine Sulfate (Morphine Sulfate 2 Mg Inj) 2 mg IV Q4H PRN PRN PRN Reason: PAIN Stop: 07/08/20 11:24 Last Admin: 07/05/20 04:40 Dose: 2 mg Documented by: BRANT WEBSTER PAIN Document 07/05/20 04:40 VL (Rec: 07/05/20 04:40 VL [id number]) Reassesment Location Generalized Pain Scale Used 0-10 Pain Scale Pain Intensity (0-10) 10 Re-Assess: Pain Reassessment Document 07/05/20 04:59 VL (Rec: 07/05/20 04:59 VL [id number]) Pain Description Pain Scale Used 0-10 Pain Scale Pain Intensity (0-10) 4 Admin: 07/03/20 22:40 Dose: 2 mg Documented by: PRABHU WEBSTER PAIN Document 07/03/20 22:40 MG (Rec: 07/03/20 22:41 MG [id number]) Reassesment Pain Site Right Location Foot Pain Scale Used 0-10 Pain Scale Pain Intensity (0-10) 9 Comment Foot in a lot of pain after putting marysol on, teds removed, pt continues to c/o pain. Re-Assess: Pain Reassessment Document 07/03/20 23:10 MG (Rec: 07/04/20 03:44 MG [id number]) Pain Description Pain Scale Used 0-10 Pain Scale Pain Intensity (0-10) 9 Nitrofurantoin Macrocrystals (Macrobid 100mg Capsule) 100 mg PO BIDWM [facility] Stop: 08/03/20 09:59 Last Admin: 07/05/20 07:38 Dose: 100 mg Documented by: Admin: 07/04/20 17:10 Dose: 100 mg Documented by: Admin: 07/04/20 09:52 Dose: 100 mg Documented by: PACHECO Non-Formulary Medication (Pharmacy Dosing Request) 1 each MC STAT ONE Stop: 07/05/20 09:28 Last Admin: 07/05/20 09:44 Dose: 1 each Documented by: PACHECO Comments: pharmacy is dosing. Ondansetron HCl (Zofran 4 Mg/2 Ml Vial) 4 mg IV STAT ONE Stop: 07/03/20 05:54 Last Admin: 07/03/20 06:05 Dose: 4 mg Documented by: MARIBEL Med Admininistration (IV,IVP) Document 07/03/20 06:05 MIGUE (Rec: 07/03/20 06:05 KF [id number]) Type of Administration Initial IV Push Yes Ondansetron HCl (Zofran 4 Mg/2 Ml Vial) Confirm Administered Dose 4 mg .ROUTE .STK-MED ONE Stop: 07/03/20 05:59 Pantoprazole Sodium (Protonix 40 Mg Iv) 40 mg IV Q24H10 SELENE Stop: 08/02/20 11:24 Last Admin: 07/03/20 12:49 Dose: 40 mg Documented by: DANIA Code(s): I33.0 - ACUTE AND SUBACUTE INFECTIVE ENDOCARDITIS (2) Sepsis due to Staphylococcus aureus Current Visit: Yes Status: Acute Priority: High Assessment & Plan: Chief Complaint Diagnosis SEPTICEMIA Allergies Allergy/AdvReac Type Severity Reaction Status Date / Time No Known Drug Allergies Allergy Verified 07/01/20 15:37 Vital Signs (Last 24 hours) Temp Pulse Resp BP Pulse Ox 07/06/20 16:00 97.9 F 89 18 132/79 99 07/06/20 12:00 97.9 F 103 H 16 154/74 96 07/06/20 07:44 99.6 F 99 H 16 139/70 96 07/06/20 07:05 101 H 18 97 07/06/20 04:00 99 F 97 H 22 156/81 100 07/06/20 00:00 98.9 F 103 H 24 146/70 95 07/05/20 20:19 97 H 16 98 07/05/20 19:45 98.7 F 107 H 16 154/78 98 Current Medications Generic Name Dose Route Start Last Admin Trade Name Freq PRN Reason Stop Dose Admin Acetaminophen 650 mg 07/03/20 11:25 07/06/20 11:25 Tylenol 325 Mg PO 08/02/20 11:24 650 mg Q4H PRN PRN Administration PAIN AND/OR FEVER Albuterol Sulfate 2 puff 07/03/20 14:24 Ventolin Common Canister IH 08/02/20 14:23 Q4H PRN PRN SHORTNESS OF BREATH/WHEEZING Bupropion HCl 150 mg 07/04/20 10:00 07/06/20 11:25 Wellbutrin Sr 150 Mg PO 08/03/20 09:59 150 mg DAILY SELENE Administration Device 1 07/07/20 09:30 Trough Drug Levels IJ 07/07/20 09:31 1XONLY ONE Sodium Chloride 1,000 mls @ 125 mls/hr 07/03/20 11:25 07/06/20 04:29 Sodium Chloride 0.9% 1000 Ml IV 08/02/20 11:24 125 mls/hr .Q8H SELENE Administration Ceftriaxone Sodium/Dextrose 1 g in 50 mls @ 100 mls/hr 07/03/20 11:25 07/06/20 11:24 Rocephin 1 Gm-D5w 50 Ml Bag IV 07/08/20 11:24 100 mls/hr Q24H10 SELENE Administration Vancomycin HCl 1 gm in 200 mls @ 125 mls/hr 07/05/20 22:00 07/06/20 12:27 Vancomycin 1 Gram/200 Ml Bag IV 08/04/20 21:59 125 mls/hr Q12H SELENE Administration Ketorolac Tromethamine 10 mg 07/04/20 10:00 07/06/20 14:27 Toradol 10 Mg Tablet PO 07/08/20 22:01 10 mg TID SELENE Administration Lisinopril 10 mg 07/04/20 10:00 07/06/20 11:25 Zestril 10 Mg PO 08/03/20 09:59 10 mg DAILY SELENE Administration Montelukast Sodium 10 mg 07/04/20 10:00 07/06/20 11:24 Singulair 10 Mg PO 08/03/20 09:59 10 mg DAILY SELENE Administration Multivitamins Therapeutic 1 tab 07/04/20 10:00 07/06/20 11:25 Theragran Multivitamin PO 08/03/20 09:59 1 tab DAILY SELENE Administration Ondansetron HCl 4 mg 07/03/20 11:25 Zofran 4 Mg/2 Ml Vial IV 08/02/20 11:24 Q6H PRN PRN NAUSEA/VOMITING Pantoprazole Sodium 40 mg 07/04/20 10:00 07/06/20 11:24 Protonix 40mg Tablet PO 08/03/20 09:59 40 mg DAILY SELENE Administration Terbinafine HCl 250 mg 07/04/20 10:00 07/06/20 11:25 Lamisil 250 Mg PO 08/03/20 09:59 250 mg DAILY SELENE Administration Discontinued Medications Generic Name Dose Route Start Last Admin Trade Name Freq PRN Reason Stop Dose Admin Albuterol/Ipratropium 3 ml 07/03/20 11:25 Duoneb 0.5-3 Mg/3 Ml Neb IH 08/02/20 11:24 Q4HPRN PRN SHORTNESS OF BREATH/WHEEZING Hydromorphone HCl 1 mg 07/03/20 05:53 07/03/20 06:06 Hydromorphone 1 Mg/Ml Injection IV 07/03/20 05:54 1 mg STAT ONE Administration Hydromorphone HCl Confirm 07/03/20 05:58 Hydromorphone 1 Mg/Ml Injection Administered 07/03/20 05:59 Dose 1 mg .ROUTE .STK-MED ONE Ceftriaxone Sodium/Dextrose 1 g in 50 mls @ 100 mls/hr 07/03/20 05:54 07/03/20 07:38 Rocephin 1 Gm-D5w 50 Ml Bag IV 07/03/20 06:23 Infused STAT STA Infusion Sodium Chloride 1,000 mls @ 999 mls/hr 07/03/20 06:00 07/03/20 07:38 Sodium Chloride 0.9% 1000 Ml IV 07/03/20 07:00 Infused .Q1H1M STA Infusion Sodium Chloride Confirm 07/03/20 05:58 Sodium Chloride 0.9% 1000 Ml Administered 07/03/20 05:59 Dose 1,000 mls @ ud .ROUTE .STK-MED ONE Ceftriaxone Sodium/Dextrose Confirm 07/03/20 05:59 Rocephin 1 Gm-D5w 50 Ml Bag Administered 07/03/20 06:00 Dose 1 g in 50 mls @ ud IV .STK-MED ONE Sodium Chloride 1,000 mls @ 999 mls/hr 07/03/20 06:53 07/03/20 08:53 Sodium Chloride 0.9% 1000 Ml IV 07/03/20 07:53 Infused .Q1H1M STA Infusion Sodium Chloride Confirm 07/03/20 07:31 Sodium Chloride 0.9% 1000 Ml Administered 07/03/20 07:32 Dose 1,000 mls @ ud .ROUTE .STK-MED ONE Vancomycin HCl 1.25 gm in 250 mls @ 150 mls/hr 07/05/20 10:00 07/05/20 09:58 Vancomycin 1.25 Gm/250 Ml Bag IV 07/05/20 11:39 150 mls/hr NOW ONE Administration Ibuprofen 400 mg 07/04/20 00:00 07/03/20 23:23 Motrin 400 Mg PO 07/04/20 00:01 400 mg ONCE ONE Administration Methylprednisolone Sodium Succinate 125 mg 07/03/20 05:54 07/03/20 06:05 Solu-Medrol 125 Mg IV 07/03/20 05:55 125 mg STAT ONE Administration Methylprednisolone Sodium Succinate Confirm 07/03/20 05:58 Solu-Medrol 125 Mg Administered 07/03/20 05:59 Dose 125 mg .ROUTE .STK-MED ONE Morphine Sulfate 2 mg 07/03/20 11:25 07/05/20 04:40 Morphine Sulfate 2 Mg Inj IV 07/08/20 11:24 2 mg Q4H PRN PRN Administration PAIN Nitrofurantoin Macrocrystals 100 mg 07/04/20 10:00 07/05/20 07:38 Macrobid 100mg Capsule PO 08/03/20 09:59 100 mg BIDWM SELENE Administration Non-Formulary Medication 1 each 07/05/20 09:27 07/05/20 09:44 Pharmacy Dosing Request 07/05/20 09:28 1 each STAT ONE Administration Ondansetron HCl 4 mg 07/03/20 05:53 07/03/20 06:05 Zofran 4 Mg/2 Ml Vial IV 07/03/20 05:54 4 mg STAT ONE Administration Ondansetron HCl Confirm 07/03/20 05:58 Zofran 4 Mg/2 Ml Vial Administered 07/03/20 05:59 Dose 4 mg .ROUTE .STK-MED ONE Pantoprazole Sodium 40 mg 07/03/20 11:25 07/03/20 12:49 Protonix 40 Mg Iv IV 08/02/20 11:24 40 mg Q24H10 SELENE Administration Intake & Output (Last 24 hours) 07/04/20 07/05/20 07/06/20 07/07/20 11:59 11:59 11:59 11:59 Intake Total 2223 4603 5089 380 Output Total 1000 1350 1450 650 Balance 1223 7632 1602 -063 Microbiology Results (Last 24 hours) 07/05/20 06:00 Urine, Void Urine Culture - Final NO GROWTH Laboratory Results (Last 24 hours) 07/06/20 07/06/20 07/06/20 04:48 04:00 04:00 WBC 30.7 H* RBC 4.61 Hgb 10.8 L Hct 31.2 L MCV 67.7 L MCH 23.4 L MCHC 34.6 RDW 14.6 H Plt Count 108 L D MPV 10.4 Smear Path Review Sodium 126 L Potassium 3.6 Chloride 101 Carbon Dioxide 21 L Anion Gap 7.7 BUN 14 Creatinine 0.54 Estimated GFR > 60.0 Glucose 102 Calcium 8.2 L Total Bilirubin 1.00 AST 53 H ALT 39 H Alkaline Phosphatase 212 H Serum Total Protein 4.8 L Albumin 2.1 L Procalcitonin 1.280 H Slides for Path Review YES Orders (Last 24 hours) Category Date Time Status House Regular Diet Diet 07/06/20 Lunch Active NPO Diet 07/06/20 09:22 Completed Discharge Routine Discharge 07/06/20 Ordered ABDOMEN AND PELVIS W&WO CONTRA [CT] Urgent Exams 07/06/20 09:20 Completed CHEST W/WO CONTRAST [CT] Urgent Exams 07/06/20 09:20 Completed ECHO W/2D AND DOPPLER [US] Routine Exams 07/06/20 10:44 Draft CA 19-9 Urgent Lab 07/06/20 15:00 Received CBC Routine Lab 07/06/20 04:00 Completed CBC W DIFF AM.LAB Lab 07/07/20 04:00 Ordered CEA Urgent Lab 07/06/20 15:00 Received CMP AM.LAB Lab 07/07/20 04:00 Ordered CMP Routine Lab 07/06/20 04:00 Completed Cancer Antigen (CA) 125 Urgent Lab 07/06/20 15:00 Received Cancer Antigen 15-3 Urgent Lab 07/06/20 15:00 Received PROCALCITONIN DAILY Lab 07/06/20 04:48 Completed PROCALCITONIN DAILY Lab 07/07/20 06:00 Ordered PROCALCITONIN DAILY Lab 07/08/20 06:00 Ordered PROCALCITONIN DAILY Lab 07/09/20 06:00 Ordered PROCALCITONIN DAILY Lab 07/10/20 06:00 Ordered PROCALCITONIN DAILY Lab 07/11/20 06:00 Ordered PROCALCITONIN DAILY Lab 07/12/20 06:00 Ordered Pathologist Review Routine Lab 07/06/20 04:00 Completed Vancomycin, Trough Urgent Lab 07/07/20 09:30 Ordered Therapuetic Drug Level Monitor [Trough Drug Levels] Med 07/07/20 09:30 Once 1 IJ 1XONLY ONE Vancomycin/Water For Inj (Peg) [Vancomycin 1 Gram/200 Med 07/05/20 22:00 Active ml Bag] 1 gm in 200 ml IV Q12H Patient Care Notes (Last 24 hours) 07/06/20 17:17 Nursing Note by Danielle Kinsey CALLED FOR TRANSPORT 07/06/20 @ 1717 Initialized on 07/06/20 17:17 - END OF NOTE 07/06/20 14:44 Case Management Note by Adamaris Warren CALL TO DR. HEREDIA TO INFORM OF DR. 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 N/O RECEIVED TO TRANSFER PT TO [facility]. [facility] CALLED PER DR HEREDIA ORDERS TO TRANSFER PT FOR I.D. AND CARDIOLOGY PER DR. 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 UPDATED PT THAT DR. HEREDIA FEELS THAT IT IS MEDICALLY NECESSARY FOR HER TO TRANSFER TO [facility] FOR CONSULTS FROM I.D. AND CARDIOLOGY. PT VERBALIZED UNDERSTANDING AND IS AGREEABLE TO THIS PLAN. PT REPORTS THAT SHE WILL CALL HER MOTHER AND LET HER KNOW. Initialized on 07/06/20 14:44 - END OF NOTE 07/06/20 13:55 (created 07/06/20 14:49) Case Management Note by Adamaris Warren SPOKE WITH PT AND MOTHER REGARDING ORDERS FOR ADDNL LABS TO BE DRAWN. PT AND MOM VERBALIZED UNDERSTANDING AND AGREE TO ADDNL TESTING. Initialized on 07/06/20 14:49 - END OF NOTE 07/06/20 13:30 (created 07/06/20 14:48) Case Management Note by Adamaris Warren CT SCAN RESULTS CALLED TO DR. HEREDIA, N/O RECEIVED. Initialized on 07/06/20 14:48 - END OF NOTE 07/06/20 12:10 (created 07/06/20 12:14) Case Management Note by Adamaris Warren DR. ROUNDED AND EVALUATED. DISCUSSED TESTING/TREATMENT WITH PT. PT VERBALIZED UNDERSTANDING OF INFORMATION AND AGREEABLE TO PLAN. DENIES ADDNL NEEDS AT PRESENT TIME. DR. HEREDIA REPORTS THAT PT WILL LIKELY NEED TO BE IN THE HOSPITAL FOR A FEW MORE DAYS OF TREATMENT. Initialized on 07/06/20 12:14 - END OF NOTE 07/06/20 10:14 Case Management Note by Jenn Hardwick PATIENT ACUTELY ILL- WILL CONTINUE TO FOLLOW FOR ANY NEEDS CLOSER TO TIME OF DC Initialized on 07/06/20 10:14 - END OF NOTE (3) Acute UTI (urinary tract infection) Current Visit: Yes Status: Acute Code(s): N39.0 - URINARY TRACT INFECTION, SITE NOT SPECIFIED (4) Recurrent low back pain Current Visit: Yes Status: Acute Code(s): M54.5 - LOW BACK PAIN (5) Degenerative disc disease Current Visit: No Status: Chronic Code(s): AKE0500 - (6) Lumbosacral strain Current Visit: No Status: Chronic Code(s): S39.012A - STRAIN OF MUSCLE, F ASCIA AND TENDON OF LOWER BACK, INIT - Discharge Discharge Date: 07/06/20 [facility] Condition: Stable Prescriptions: No Action Lisinopril 10 mg [Zestril 10 MG] 10 mg PO DAILY Omeprazole 20 mg PO DAILY Montelukast Sodium 10 mg [Singulair 10 MG] 10 mg PO DAILY Terbinafine HCl [Lamisil] 1 ea PO DAILY Vits W-Ca,Fe,FA(<1Mg) [] 1 ea PO DAILY Bupropion HCl 150 mg Sr [Wellbutrin SR 150 MG] 1 ea PO DAILY Ketorolac Tromethamine [Toradol] 10 mg PO TID 5 Days #15 tablet Nitrofurantoin Macro 100 mg [Macrobid 100MG Capsule] 100 mg PO BID 7 Days #14 capsule Follow up with: ATUL HEREDIA MD [Primary Care Provider] -
[2020-07-07] MEDS ORDERED: TROUGH DRUG LEVELS IJ ONE (09:30)
== END 2020-07-06 17:55 | disposition short-term general hospital (02) | DRG 288 ==
LOC: ED 05:35 → MED SURG 11:22 → OBSVTOIN 07-05 07:25
PROVIDERS: ADMIT General Practice; ATTEND General Practice
DX: I33.0 Acute and subacute infective endocarditis (principal); A41.01 Sepsis due to Methicillin susceptible Staphylococcus aureus; R65.20 Severe sepsis without septic shock; N39.0 Urinary tract infection, site not specified; Z79.899 Other long term (current) drug therapy; I10 Essential (primary) hypertension; S39.012A Strain of muscle, fascia and tendon of lower back, initial encounter; M51.37 Other intervertebral disc degeneration, lumbosacral region
CPT/HCPCS: 0241U; 36000; 36415; 71270; 74176; 74178; 80053; 80074; 80307; 81001; 82378; 83605; 83690; 84145; 85025; 85027; 86300; 86301; 86304; 87040; 87077; 87086; 87186; 93268; 93306; 94667; 94760; 96360; 96361; 96365; 96374; 96375; 99285; J0696; J1170; J2270; J2405; J2930; A9270-GY; G0378; J3370

== ENCOUNTER 2020-09-03 12:05 | Emergency (ER) | payer OTHER ==
[2020-09-03 14:04] LABS: PROTIME 23.1 SECONDS (9.4-12.5)
[2020-09-03 14:10] LABS: INR 1.96 (0.8-3.0)
[2020-09-03 14:12] VITALS: BP 107/69; PULSE 68
[2020-09-03 14:16] VITALS: O2SAT 100
--- NOTE | 2020-09-03 14:16 | ERPHSYRPT ---
- History of Present Illness Time Seen by Provider: 09/03/20 12:10 Source: patient Exam Limitations: no limitations Patient Subjective Stated Complaint: Nosebleed Triage Nursing Assessment: Patient ambulated back to ED and transferred self to bed. Patient A+O x3. Patient's skin pink, warm and dry. Patient complains of a nose bleed prior to coming into ED that stopped upon arrival. Patient is on Coumadin currently due to recent CABG with Aortic and Valve replacement. Patient started recent dose of Diflucan for possible yeast infection in one of the valves (unknown which valve) that may be interfering with Coumadin dose. Patient denies pain or discomfort. Physician History: 55 years old female with history of recent valve replacement on Coumadin presented in the ER with chief complaint of right sided epistaxis. Patient is having nasal congestion for the last couple of days. Did blow her nose really hard and noticed some blood on the napkin. There was a little more blood after that but stopped with applying pressure. She is not bleeding currently in the ER. Does not have any history of dark stool, hematuria or hematochezia. No history of vomiting/hematemesis. Timing/Duration: abrupt onset Severity: mild ENT Location: nose Prearrival Treatment: squeezing nostrils Associated Symptoms: nasal congestion/drainage Allergies/Adverse Reactions: No Known Drug Allergies Allergy (Verified 09/03/20 12:19) Home Medications: Omeprazole 20 mg PO DAILY 10/23/19 [History] Montelukast Sodium 10 mg [Singulair 10 MG] 10 mg PO DAILY 07/01/20 [History] Vits W-Ca,Fe,FA(<1Mg) [] 1 tab PO DAILY 07/01/20 [History] Albuterol 17 gm IH Q4H PRN PRN 08/05/20 [History] Aspirin 81 mg PO DAILY 08/05/20 [History] Calcium Carbonate 750 mg [Tums EX 750 MG] 750 mg PO Q12H PRN PRN 08/05/20 [History] Metoprolol Tartrate 25 mg PO BID 08/05/20 [History] buPROPion HCL [Bupropion Xl] 150 mg PO DAILY 08/05/20 [History] lisinopriL [Lisinopril] 20 mg PO DAILY 08/05/20 [History] Hx Tetanus, Diphtheria Vaccination/Date Given: No Hx Influenza Vaccination/Date Given: Yes Hx Pneumococcal Vaccination/Date Given: No Immunizations Up to Date: Yes Travel Risk - International Travel Have you traveled outside of the country in past 3 weeks: No - Coronavirus Screening Are you exhibiting any of the following symptoms?: No Close contact with a COVID-19 positive Pt in past 14-21 Days: No - Vaccine Status Have you recieved a Covid-19 vaccination: Yes 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[employer] - Review of Systems Constitutional: No Symptoms Eyes: No Symptoms Ears, Nose, & Throat: Nose Congestion, Epistaxis Respiratory: No Symptoms Cardiac: No Symptoms Abdominal/Gastrointestinal: No Symptoms Genitourinary Symptoms: No Symptoms Musculoskeletal: No Symptoms Neurological: No Symptoms Psychological: No Symptoms Endocrine: No Symptoms Hematologic/Lymphatic: No Symptoms Immunological/Allergic: No Symptoms - Past Medical History Pertinent Past Medical History: Yes Neurological History: No Pertinent History ENT History: No Pertinent History Cardiac History: Hypertension Respiratory History: COPD Endocrine Medical History: No Pertinent History Musculoskeletal History: Other GI Medical History: GERD History: No Pertinent History Psycho-Social History: Other Female Reproductive Disorders: Other Other Medical History: toe fungus. HX of dislocated L shoulder. "large mood swings and can be combative", reported pt's mother. Anemia. STD. - Past Surgical History Past Surgical History: Yes Cardiac: CABG, Valve Replacement Gastrointestinal: Appendectomy Female Surgical History: Other Other Surgical History: ovarectomy times one. Open heart with mitral and aortic replacement on July 23, 2020 - Social History Smoking Status: Former smoker Exposure to second hand smoke: Yes Drug Use: none Patient Lives Alone: Yes - Female History Hx Now: No - Nursing Vital Signs Nursing Vital Signs: Initial Vital Signs Pulse Rate 68 09/03/20 12:24 Respiratory Rate 18 09/03/20 12:24 Blood Pressure 111/79 09/03/20 12:24 O2 Sat by Pulse Oximetry 100 09/03/20 12:24 Pain Scale Pain Intensity 0 - Physical Exam General Appearance: no apparent distress, alert Eye Exam: bilateral eye: normal inspection, PERRL, EOMI Ear Exam: bilateral ear: auricle normal, canal normal, TM normal Nasal Exam: No active bleeding (Nasal mucosal congestion. No obvious lesion noticed on the right side. No bleeding after blowing really hard.) Throat Exam: normal, pharynx normal, No dental tenderness Neck Exam: normal inspection, non-tender, supple, full range of motion Cardiovascular/Respiratory Exam: chest non-tender, normal breath sounds, regular rate/rhythm Neurologic Exam: alert, oriented x 3, cooperative Skin Exam: normal color SpO2 Interpretation: normal SpO2: 100 O2 Delivery: Room Air Ordered Tests: Active Orders 24 hr Category Date Time Status PT INR [PROTIME WITH INR] Stat Lab 09/03/20 13:45 Completed Lab/Rad Data: Laboratory Results 09/03/20 Range/Units 13:45 PT 23.1 H (9.4-12.5) SECONDS INR 1.96 (0.8-3.0) - Progress Progress: improved Progress Note: 09/03/20 14:14 She does not have any bleeding while in the ER, observed for more than 1 hour. PT/INR is close to therapeutic. She does have congestion. Recommended keeping it moist to avoid dryness. Continue with Coumadin. Does not need any intervention now and is stable for discharge. Counseled pt/family regarding: lab results, diagnosis, need for follow-up - Departure Departure Disposition: Home Clinical Impression: Epistaxis Condition: Stable Critical Care Time: No Referrals: ATUL HEREDIA MD [Primary Care Provider] - Follow Up with PCP/3 days Instructions: Nosebleeds (DC) Additional Instructions: Keep your nose dry/moist. Use humidifier in the room. If has bleeding again, apply firm pressure/nasal prong clipper for 5 minutes. Return to ER for worsening bleeding. Continue with Coumadin.
== END 2020-09-03 14:22 | disposition home or self-care (01) ==
LOC: ED 12:05
DX: R04.0 Epistaxis (principal); I10 Essential (primary) hypertension; J44.9 Chronic obstructive pulmonary disease, unspecified; Z79.01 Long term (current) use of anticoagulants; Z79.899 Other long term (current) drug therapy
CPT/HCPCS: 36415; 85610; 99283

== ENCOUNTER 2020-09-24 14:25 | Emergency (ER) | payer OTHER ==
[2020-09-24] MEDS ORDERED: Sodium Chloride 0.9% 1000 ML 1,000 ML IV STA (15:00)
[2020-09-24] MEDS ORDERED: ANTIVERT 25 MG PO ONE (15:00)
--- NOTE | 2020-09-24 15:05 | ERPHSYRPT ---
- History of Present Illness Time Seen by Provider: 09/24/20 14:30 Source: patient Exam Limitations: no limitations Patient Subjective Stated Complaint: pt here for dizziness when standing,she staes in july she had valve replacement, Triage Nursing Assessment: pt alert, resp easy, face mask in place, skin w/d/p. no edema noted. Physician History: 55 years old female with history of mitral and aortic valve replacements little over a month ago on Coumadin, tobacco abuse, hypertension presented in the ER with chief complaint of dizziness/lightheadedness for last couple of days. Patient reports every time she tries to get up and ambulate, gets spinning sensation/dizziness and improves with sitting and lying down. Denies any blurry vision, numbness tingling or focal weakness. Denies any difficulty speech, associated chest pain or shortness of breath but does have some palpitations with standing up for a few seconds and improves quickly. No fever or chills reported. Reports decreased oral intake. Timing/Duration: day(s) (2), intermittent, gradual onset, worse Severity: moderate Modifying Factors: Improves With: rest Associated Symptoms: No nausea, No vomiting, No abdominal pain, No shortness of breath, No diaphoresis, No cough, No chest pain, No fever, No headaches, No loss of appetite, No malaise, No syncope, No seizure, No weakness Allergies/Adverse Reactions: No Known Drug Allergies Allergy (Verified 09/24/20 14:43) Home Medications: Omeprazole 20 mg PO DAILY 10/23/19 [History] Montelukast Sodium 10 mg [Singulair 10 MG] 10 mg PO DAILY 07/01/20 [History] Vits W-Ca,Fe,FA(<1Mg) [] 1 tab PO DAILY 07/01/20 [History] Albuterol 17 gm IH Q4H PRN PRN 08/05/20 [History] Aspirin 81 mg PO DAILY 08/05/20 [History] Calcium Carbonate 750 mg [Tums EX 750 MG] 750 mg PO Q12H PRN PRN 08/05/20 [History] Metoprolol Tartrate 25 mg PO BID 08/05/20 [History] buPROPion HCL [Bupropion Xl] 150 mg PO DAILY 08/05/20 [History] lisinopriL [Lisinopril] 20 mg PO DAILY 08/05/20 [History] Hx Tetanus, Diphtheria Vaccination/Date Given: No Hx Influenza Vaccination/Date Given: Yes Hx Pneumococcal Vaccination/Date Given: No Immunizations Up to Date: Yes Travel Risk - International Travel Have you traveled outside of the country in past 3 weeks: No - Coronavirus Screening Are you exhibiting any of the following symptoms?: No Close contact with a COVID-19 positive Pt in past 14-21 Days: No - Vaccine Status Have you recieved a Covid-19 vaccination: Yes 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[employer] - Review of Systems Constitutional: Fatigue Eyes: No Symptoms Ears, Nose, & Throat: No Symptoms Respiratory: No Symptoms Cardiac: Palpitations Abdominal/Gastrointestinal: No Symptoms Genitourinary Symptoms: No Symptoms Musculoskeletal: No Symptoms Skin: No Symptoms Neurological: Dizziness Psychological: No Symptoms Endocrine: No Symptoms Hematologic/Lymphatic: No Symptoms Immunological/Allergic: No Symptoms - Past Medical History Pertinent Past Medical History: Yes Neurological History: No Pertinent History ENT History: No Pertinent History Cardiac History: Hypertension Respiratory History: COPD Endocrine Medical History: No Pertinent History Musculoskeletal History: Other GI Medical History: GERD History: No Pertinent History Psycho-Social History: Anxiety, Panic Disorder, Other Female Reproductive Disorders: Other Other Medical History: toe fungus. HX of dislocated L shoulder. "large mood swings and can be combative", reported pt's mother. Anemia. STD. - Past Surgical History Past Surgical History: Yes Cardiac: CABG, Valve Replacement Gastrointestinal: Appendectomy Female Surgical History: Other Other Surgical History: ovarectomy times one. Open heart with mitral and aortic replacement on July 23, 2020 - Social History Smoking Status: Former smoker Exposure to second hand smoke: Yes Drug Use: none Patient Lives Alone: Yes - Female History Hx Last Menstrual Period: post Hx Now: No - Nursing Vital Signs Nursing Vital Signs: Initial Vital Signs Temperature 97.0 F 09/24/20 14:37 Pulse Rate 100 H 09/24/20 14:37 Respiratory Rate 18 09/24/20 14:37 Blood Pressure 156/109 09/24/20 14:37 O2 Sat by Pulse Oximetry 100 09/24/20 14:37 Pain Scale Pain Intensity 3 - Physical Exam General Appearance: no apparent distress, alert Eye Exam: PERRL/EOMI, eyes nml inspection Ears, Nose, Throat Exam: normal ENT inspection, TMs normal, pharynx normal Neck Exam: normal inspection, non-tender, supple, full range of motion Respiratory Exam: normal breath sounds, lungs clear Cardiovascular Exam: regular rate/rhythm, murmur Gastrointestinal/Abdomen Exam: soft, normal bowel sounds, No tenderness Back Exam: normal inspection, normal range of motion Extremity Exam: normal inspection, normal range of motion, pelvis stable Neurologic Exam: alert, oriented x 3, cooperative, branch operations coordinator II-XII nml as tested, normal mood/affect, nml cerebellar function, nml station & gait, sensation nml, No motor deficits, No sensory deficit Skin Exam: normal color SpO2 Interpretation: normal SpO2: 100 O2 Delivery: Room Air - Course EKG Interpreted by Me: RATE (94), Sinus Rhythm, NORMAL AXIS, NORMAL INTERVALS, Other (repolarization abnormality) Ordered Tests: Active Orders 24 hr Category Date Time Status Manager Product Management STAT Care 09/24/20 15:01 Active EKG-ER Only STAT Care 09/24/20 15:00 Active IV Insertion STAT Care 09/24/20 15:00 Active Orthostatic Vital Signs STAT Care 09/24/20 15:00 Active CHEST 1 VIEW (PORTABLE) Stat Exams 09/24/20 15:01 Completed HEAD WITHOUT CONTRAST [CT] Stat Exams 09/24/20 15:01 Completed CBC W DIFF Stat Lab 09/24/20 15:40 Completed CMP Stat Lab 09/24/20 15:40 Completed Lactic Acid Stat Lab 09/24/20 15:00 Ordered MAGNESIUM Stat Lab 09/24/20 15:40 Completed PT INR [PROTIME WITH INR] Stat Lab 09/24/20 16:57 Ordered TROPONIN Q3H Lab 09/24/20 15:40 Completed TROPONIN Q3H Lab 09/24/20 18:15 Ordered TROPONIN Q3H Lab 09/24/20 21:15 Ordered TROPONIN Q3H Lab 09/25/20 00:15 Ordered TROPONIN Q3H Lab 09/25/20 03:15 Ordered UA W/RFX UR CULTURE Stat Lab 09/24/20 15:15 Completed Urine Triage Profile Stat Lab 09/24/20 15:15 Completed Medication Summary Discontinued Medications Generic Name Dose Route Start Last Admin Trade Name Freq PRN Reason Stop Dose Admin Aspirin 324 mg 09/24/20 17:30 Baby Aspirin 81 Mg Chew PO 09/24/20 17:31 STAT ONE Sodium Chloride 1,000 mls @ 999 mls/hr 09/24/20 15:00 09/24/20 16:49 Sodium Chloride 0.9% 1000 Ml IV 09/24/20 16:00 Infused .Q1H1M STA Infusion Sodium Chloride Confirm 09/24/20 15:24 Sodium Chloride 0.9% 1000 Ml Administered 09/24/20 15:25 Dose 1,000 mls @ ud .ROUTE .STK-MED ONE Meclizine HCl 25 mg 09/24/20 15:00 09/24/20 15:27 Antivert 25 Mg PO 09/24/20 15:01 25 mg STAT ONE Administration Meclizine HCl Confirm 09/24/20 15:23 Antivert 25 Mg Administered 09/24/20 15:24 Dose 25 mg .ROUTE .STK-MED ONE Lab/Rad Data: Laboratory Result Diagrams 09/24/20 15:40 09/24/20 15:40 Laboratory Results 09/24/20 09/24/20 09/24/20 Range/Units 15:40 15:40 15:40 WBC 8.1 (4.0-10.5) K/mm3 RBC 5.07 (4.1-5.4) M/mm3 Hgb 11.3 L (12.0-16.0) gm/dl Hct 37.8 (35-47) % MCV 74.6 L (78-100) fl MCH 22.3 L (26-32) pg MCHC 29.9 L (32-36) g/dl RDW 17.1 H (11.5-14.0) % Plt Count 639 H (150-450) K/mm3 MPV 8.5 (7.5-11.0) fl Gran % 52.0 (36.0-66.0) % Eos # (Auto) 0.41 (0-0.5) Absolute Lymphs (auto) 2.46 (1.0-4.6) Absolute Monos (auto) 0.96 (0.0-1.3) Lymphocytes % 30.4 (24.0-44.0) % Monocytes % 11.9 (0.0-12.0) % Eosinophils % 5.1 H (0.00-5.0) % Basophils % 0.6 (0.0-0.4) % Absolute Granulocytes 4.20 (1.4-6.9) Basophils # 0.05 (0-0.4) Sodium 134 L (137-145) mmol/L Potassium 4.4 (3.5-5.1) mmol/L Chloride 99 (98-107) mmol/L Carbon Dioxide 28 (22-30) mmol/L Anion Gap 12.1 (5-15) MEQ/L BUN 19 H (7-17) mg/dL Creatinine 0.61 (0.52-1.04) mg/dL Estimated GFR > 60.0 ML/MIN Glucose 109 H (74-106) mg/dL Calcium 10.8 H (8.4-10.2) mg/dL Magnesium 2.2 (1.6-2.3) mg/dL Total Bilirubin 0.10 L (0.2-1.3) mg/dL AST 30 (14-36) U/L ALT 20 (0-35) U/L Alkaline Phosphatase 151 H (38-126) U/L Troponin I 0.056 H* (0.000-0.034) ng/mL Serum Total Protein 8.6 H (6.3-8.2) g/dL Albumin 4.3 (3.5-5.0) g/dL Urine Color (YELLOW) Urine Appearance (CLEAR) Urine pH (5-6) Ur Specific [place] (1.005-1.025) Urine Protein (Negative) Urine Ketones (NEGATIVE) Urine Blood (0-5) Leo/ul Urine Nitrite (NEGATIVE) Urine Bilirubin (NEGATIVE) Urine Urobilinogen (0-1) mg/dL Ur Leukocyte Esterase (NEGATIVE) Urine WBC (Auto) (0-5) /HPF Urine RBC (Auto) (0-2) /HPF U Epithel Cells (Auto) (FEW) /HPF Urine Bacteria (Auto) (NEGATIVE) /HPF Urine Mucus (Auto) (NEGATIVE) /HPF Urine Culture Reflexed (NO) Urine Glucose (NEGATIVE) mg/dL Urine Opiates Level (NEGATIVE) Ur Methadone (NEGATIVE) Urine Barbiturates (NEGATIVE) Ur Phencyclidine (PCP) (NEGATIVE) Urine Amphetamine (NEGATIVE) U Benzodiazepine Level (NEGATIVE) Urine Cocaine (NEGATIVE) Urine Marijuana (THC) (NEGATIVE) 09/24/20 09/24/20 Range/Units 15:15 15:15 WBC (4.0-10.5) K/mm3 RBC (4.1-5.4) M/mm3 Hgb (12.0-16.0) gm/dl Hct (35-47) % MCV (78-100) fl MCH (26-32) pg MCHC (32-36) g/dl RDW (11.5-14.0) % Plt Count (150-450) K/mm3 MPV (7.5-11.0) fl Gran % (36.0-66.0) % Eos # (Auto) (0-0.5) Absolute Lymphs (auto) (1.0-4.6) Absolute Monos (auto) (0.0-1.3) Lymphocytes % (24.0-44.0) % Monocytes % (0.0-12.0) % Eosinophils % (0.00-5.0) % Basophils % (0.0-0.4) % Absolute Granulocytes (1.4-6.9) Basophils # (0-0.4) Sodium (137-145) mmol/L Potassium (3.5-5.1) mmol/L Chloride (98-107) mmol/L Carbon Dioxide (22-30) mmol/L Anion Gap (5-15) MEQ/L BUN (7-17) mg/dL Creatinine (0.52-1.04) mg/dL Estimated GFR ML/MIN Glucose (74-106) mg/dL Calcium (8.4-10.2) mg/dL Magnesium (1.6-2.3) mg/dL Total Bilirubin (0.2-1.3) mg/dL AST (14-36) U/L ALT (0-35) U/L Alkaline Phosphatase (38-126) U/L Troponin I (0.000-0.034) ng/mL Serum Total Protein (6.3-8.2) g/dL Albumin (3.5-5.0) g/dL Urine Color YELLOW (YELLOW) Urine Appearance CLEAR (CLEAR) Urine pH 6.0 (5-6) Ur Specific [place] 1.018 (1.005-1.025) Urine Protein NEGATIVE (Negative) Urine Ketones NEGATIVE (NEGATIVE) Urine Blood LARGE (0-5) Leo/ul Urine Nitrite NEGATIVE (NEGATIVE) Urine Bilirubin NEGATIVE (NEGATIVE) Urine Urobilinogen NEGATIVE (0-1) mg/dL Ur Leukocyte Esterase NEGATIVE (NEGATIVE) Urine WBC (Auto) 0-2 (0-5) /HPF Urine RBC (Auto) 6-10 (0-2) /HPF U Epithel Cells (Auto) NONE (FEW) /HPF Urine Bacteria (Auto) NONE SEEN (NEGATIVE) /HPF Urine Mucus (Auto) SLIGHT (NEGATIVE) /HPF Urine Culture Reflexed NO (NO) Urine Glucose NEGATIVE (NEGATIVE) mg/dL Urine Opiates Level NEGATIVE (NEGATIVE) Ur Methadone NEGATIVE (NEGATIVE) Urine Barbiturates NEGATIVE (NEGATIVE) Ur Phencyclidine (PCP) NEGATIVE (NEGATIVE) Urine Amphetamine NEGATIVE (NEGATIVE) U Benzodiazepine Level NEGATIVE (NEGATIVE) Urine Cocaine NEGATIVE (NEGATIVE) Urine Marijuana (THC) NEGATIVE (NEGATIVE) - Progress Progress: improved, re-examined Progress Note: 09/24/20 17:35 55 years old with recent aortic and mitral valve replacement on Coumadin presented in the ER with dizziness lightheadedness with activity for 2 days. Patient has nonfocal neuro exam throughout stay in the ER. Orthostatics negative. EKG showed normal sinus rhythm with no acute ST elevations. I have obtained CT head which is negative for any acute findings. Chest x-ray negative for any acute cardiopulmonary findings. He has a normal white count. She has elevated platelets but review of records shows that she has a chronic thrombocytosis. Chemistry profile showed mildly elevated calcium of 10.8 which is also a chronic finding. Initial troponin are 0.056. She is given aspirin. She denies any chest pain palpitations or shortness of breath. I have discussed with Dr. Wise, reviewed history, current work-up, recommended transfer to [facility]. Discussed with Dr. Bateman [facility] ER, reviewed history work-up and current management, agreed with transfer. Discussed with : Mike, Other Counseled pt/family regarding: lab results, diagnosis, need for follow-up, rad results - Departure Departure Disposition: Transfer Clinical Impression: Dizziness, NSTEMI (non-ST elevated myocardial infarction), Thrombocytosis Condition: Stable Critical Care Time: Yes Critical Care Time(excluding separately billable procedures): Critical 30-74 mins Referrals: DOCTOR,NO FAMILY [Primary Care Provider] -
--- NOTE | 2020-09-24 15:21 | XRAY ---
Indication: Dizziness. Comparison: August 12, 2007. Portable chest remains hyperinflated and clear with a few incidental tiny calcified granulomas. Heart not enlarged with interval aortic and mitral valve replacement surgery. Bony thorax intact. Impression: Nonacute hyperinflated chest with chronic features.
[2020-09-24] MEDS ORDERED: ANTIVERT 25 MG ONE (15:23)
[2020-09-24] MEDS ORDERED: Sodium Chloride 0.9% 1000 ML 1,000 ML ONE (15:24)
--- NOTE | 2020-09-24 15:33 | XRAY ---
Indication: Dizziness. Headache. Multiple contiguous images obtained through the head without contrast. Comparison: None Normal appearing brain parenchyma, ventricles, and bony calvarium. Visualized paranasal sinuses and mastoid air cells are clear. Impression: Normal CT head without contrast exam.
[2020-09-24 15:35] LABS: Appearance CLEAR (CLEAR); Bilirubin NEGATIVE (NEGATIVE); Blood LARGE Ery/ul (0-5); Glucose NEGATIVE (NEGATIVE); Ketones NEGATIVE (NEGATIVE); Leukocyte Esterase NEGATIVE (NEGATIVE); Mucus SLIGHT /HPF (NEGATIVE); Nitrite NEGATIVE (NEGATIVE); Protein,Urine Dip NEGATIVE (Negative); Specific Gravity 1.018 (1.005-1.025); Urobilinogen NEGATIVE mg/dL (0-1); WBC 0-2 /HPF (0-5)
[2020-09-24 15:36] LABS: Bacteria NONE SEEN /HPF (NEGATIVE)
[2020-09-24 15:37] VITALS: PULSE 95
[2020-09-24 15:39] LABS: Amphetamine,Urine NEGATIVE (NEGATIVE); Barbiturate,Urine NEGATIVE (NEGATIVE); Benzodiazepine,Urine NEGATIVE (NEGATIVE); Cocaine,Urine NEGATIVE (NEGATIVE); Methadone,Urine NEGATIVE (NEGATIVE); Opiate,Urine NEGATIVE (NEGATIVE); PCP,Urine NEGATIVE (NEGATIVE); THC,Urine NEGATIVE (NEGATIVE)
[2020-09-24 15:46] LABS: BASOPHIL % 0.6 % (0.0-0.4); Basophil (Absolute #) 0.05 (0-0.4); Eosinophil % 5.1 % (0.00-5.0); Eosinophil (Absolute #) 0.41 (0-0.5); Hematocrit 37.8 % (35-47); Hemoglobin 11.3 gm/dl (12.0-16.0); Lymphocyte (Absolute #) 2.46 (1.0-4.6); Lymphocytes % 30.4 % (24.0-44.0); Mean Cell Volume 74.6 fl (78-100); Mean Corpuscular Hemoglobin 22.3 pg (26-32); Mean Corpuscular Hgb Concent. 29.9 g/dl (32-36); Mean Platelet Volume 8.5 fl (7.5-11.0); Monocyte (Absolute #) 0.96 (0.0-1.3); Monocytes % 11.9 % (0.0-12.0); Platelet Count 639 K/mm3 (150-450); Red Blood Count 5.07 M/mm3 (4.1-5.4); Red Cell Distribution Width 17.1 % (11.5-14.0); White Blood Count 8.1 K/mm3 (4.0-10.5)
[2020-09-24 15:57] LABS: ALBUMIN 4.3 g/dL (3.5-5.0); ALKALINE PHOSPHATASE 151 U/L (38-126); ANION GAP 12.1 MEQ/L (5-15); BLOOD UREA NITROGEN 19 mg/dL (7-17); CHLORIDE 99 mmol/L (98-107); Calcium 10.8 mg/dL (8.4-10.2); Carbon Dioxide 28 mmol/L (22-30); Creatinine 1 0.61 mg/dL (0.52-1.04); EST GLOMERULAR FILTRATION RATE > 60.0 ML/MIN; Glucose 109 mg/dL (74-106); MAGNESIUM 2.2 mg/dL (1.6-2.3); Potassium 4.4 mmol/L (3.5-5.1); SGOT/AST 30 U/L (14-36); SGPT/ALT 20 U/L (0-35); SODIUM 134 mmol/L (137-145); Total Protein 8.6 g/dL (6.3-8.2)
[2020-09-24] MEDS ORDERED: BABY ASPIRIN 81 MG CHEW PO ONE (17:30)
[2020-09-24 17:44] LABS: INR 1.63 (0.8-3.0); PROTIME 19.2 SECONDS (9.4-12.5)
[2020-09-24] MEDS ORDERED: BABY ASPIRIN 81 MG CHEW ONE (17:47)
[2020-09-24 18:37] VITALS: BP 161/31; O2SAT 99
== END 2020-09-24 17:45 | disposition short-term general hospital (02) ==
LOC: ED 14:25
DX: R42 Dizziness and giddiness (principal); I21.4 Non-ST elevation (NSTEMI) myocardial infarction; Z79.01 Long term (current) use of anticoagulants; Z95.2 Presence of prosthetic heart valve; Z79.899 Other long term (current) drug therapy; I10 Essential (primary) hypertension; J44.9 Chronic obstructive pulmonary disease, unspecified; D47.3 Essential (hemorrhagic) thrombocythemia
CPT/HCPCS: 36415; 70450; 71045; 80053; 80307; 81001; 83735; 84484; 85025; 85610; 93005; 93041; 96360; 99285; 99291; A9270-GY

== ENCOUNTER 2021-08-21 11:20 | Emergency (ER) | payer OTHER ==
--- NOTE | 2021-08-21 11:41 | ERPHSYRPT ---
- History of Present Illness Time Seen by Provider: 08/21/21 11:37 Source: patient, family Exam Limitations: no limitations Physician History: pt had open heart with valve replacements last year and on anticoag for that. seems short of breath today. came in for N/V. general abd pain , but nontender without peritoneal signs on exam. ext without edema. cheat clear. Timing/Duration: today Severity: moderate Associated Symptoms: nausea, vomiting, abdominal pain, shortness of breath Allergies/Adverse Reactions: No Known Drug Allergies Allergy (Verified 09/24/20 14:43) Home Medications: Omeprazole 20 mg PO DAILY 10/23/19 [History] Montelukast Sodium 10 mg [Singulair 10 MG] 10 mg PO DAILY 07/01/20 [History] Albuterol 17 gm IH Q4H PRN PRN 08/05/20 [History] Aspirin 81 mg PO DAILY 08/05/20 [History] buPROPion HCL [Bupropion Xl] 150 mg PO DAILY 08/05/20 [History] Hx Tetanus, Diphtheria Vaccination/Date Given: No Hx Influenza Vaccination/Date Given: Yes Hx Pneumococcal Vaccination/Date Given: No Travel Risk - Vaccine Status Have you recieved a Covid-19 vaccination: Yes Em Physician: [employer] - Review of Systems Constitutional: No Fever, No Chills Eyes: No Symptoms Ears, Nose, & Throat: No Symptoms Respiratory: Dyspnea, No Cough Cardiac: No Chest Pain, No Edema, No Syncope Abdominal/Gastrointestinal: Abdominal Pain, Nausea, Vomiting, Diarrhea Genitourinary Symptoms: No Dysuria Musculoskeletal: No Back Pain, No Neck Pain Skin: No Rash Neurological: No Dizziness, No Focal Weakness, No Sensory Changes Psychological: No Symptoms Endocrine: No Symptoms Hematologic/Lymphatic: No Symptoms Immunological/Allergic: No Symptoms All Other Systems: Reviewed and Negative - Past Medical History Pertinent Past Medical History: Yes Neurological History: No Pertinent History ENT History: No Pertinent History Cardiac History: Hypertension Respiratory History: COPD Endocrine Medical History: No Pertinent History Musculoskeletal History: Other GI Medical History: GERD History: No Pertinent History Psycho-Social History: Anxiety, Panic Disorder, Other Female Reproductive Disorders: Other Other Medical History: toe fungus. HX of dislocated L shoulder. "large mood swings and can be combative", reported pt's mother. Anemia. STD. - Past Surgical History Past Surgical History: Yes Cardiac: CABG, Valve Replacement Gastrointestinal: Appendectomy Female Surgical History: Other Other Surgical History: ovarectomy times one. Open heart with mitral and aortic replacement on July 23, 2020 - Social History Smoking Status: Former smoker Exposure to second hand smoke: Yes Drug Use: none Patient Lives Alone: Yes - Nursing Vital Signs Nursing Vital Signs: Initial Vital Signs Temperature 100.2 F 08/21/21 11:21 Pulse Rate 126 H 08/21/21 11:21 Respiratory Rate 16 08/21/21 11:21 Blood Pressure 130/85 08/21/21 11:21 O2 Sat by Pulse Oximetry 98 08/21/21 11:21 Pain Scale Pain Intensity 0 - Physical Exam General Appearance: no apparent distress, alert Eye Exam: PERRL/EOMI, eyes nml inspection Ears, Nose, Throat Exam: normal ENT inspection, TMs normal, pharynx normal, moist mucous membranes Neck Exam: normal inspection, non-tender, supple, full range of motion Respiratory Exam: normal breath sounds, lungs clear, No respiratory distress Cardiovascular Exam: regular rate/rhythm, normal heart sounds, normal peripheral pulses Gastrointestinal/Abdomen Exam: soft, normal bowel sounds, No tenderness, No mass Pelvic Exam: deferred Rectal Exam: deferred Back Exam: normal inspection, normal range of motion, No CVA tenderness, No vertebral tenderness Extremity Exam: normal inspection, normal range of motion, pelvis stable Neurologic Exam: alert, oriented x 3, cooperative, normal mood/affect, nml cerebellar function, nml station & gait, sensation nml, No motor deficits Skin Exam: normal color, warm, dry, No rash Lymphatic Exam: No adenopathy SpO2 Interpretation: normal SpO2: 99 O2 Delivery: Room Air - Course Nursing assessment & vital signs reviewed: Yes EKG Interpreted by Me: Sinus Rhythm, Sinus Tach, Left [place] Deviation, NORMAL INTERVALS, Ischemic ST-T changes, Other (LVH) - Radiology Exams Chest X-ray Interpretation: Reviewed by me, Other (valves and granulomas) Ordered Tests: Active Orders 24 hr Category Date Time Status EKG-ER Only STAT Care 08/21/21 11:42 Active IV Insertion STAT Care 08/21/21 11:42 Active CHEST 1 VIEW (PORTABLE) Stat Exams 08/21/21 12:40 Taken AMYLASE Stat Lab 08/21/21 12:25 Completed BNP [NT PRO BNP] Stat Lab 08/21/21 12:25 Completed CBC W DIFF Stat Lab 08/21/21 12:25 Completed CMP Stat Lab 08/21/21 12:25 Completed HCG QUALITATIVE,SERUM Stat Lab 08/21/21 12:25 Completed LIPASE Stat Lab 08/21/21 12:25 Completed Lactic Acid Stat Lab 08/21/21 11:42 Completed Lactic Acid Stat Lab 08/21/21 14:08 Received Manual Differential NC Stat Lab 08/21/21 12:25 Completed PROTIME WITH INR Stat Lab 08/21/21 12:25 Completed TROPONIN Q3H Lab 08/21/21 12:25 Completed TROPONIN Q3H Lab 08/21/21 14:45 Ordered TROPONIN Q3H Lab 08/21/21 17:45 Ordered TROPONIN Q3H Lab 08/21/21 20:45 Ordered TROPONIN Q3H Lab 08/21/21 23:45 Ordered UA W/RFX CULTURE Stat Lab 08/21/21 Ordered Medication Summary Generic Name Dose Route Start Last Admin Trade Name Freq PRN Reason Stop Dose Admin Sodium Chloride 1,000 mls @ 100 mls/hr 08/21/21 11:45 08/21/21 12:11 Sodium Chloride 0.9% 1000 Ml IV 09/20/21 11:44 100 mls/hr .Q10H SELENE Administration Sodium Chloride 500 mls @ 500 mls/hr 08/21/21 14:13 08/21/21 14:14 Sodium Chloride 0.9% 500 Ml IV 08/21/21 15:12 500 mls/hr .Q1H ONE Administration Discontinued Medications Generic Name Dose Route Start Last Admin Trade Name Freq PRN Reason Stop Dose Admin Aspirin 324 mg 08/21/21 12:15 08/21/21 12:20 Aspirin 81 Mg Tab.Chew PO 08/21/21 12:16 324 mg STAT ONE Administration Famotidine 20 mg 08/21/21 11:42 08/21/21 12:13 Famotidine 20 Mg/1 Vial IV 08/21/21 11:43 20 mg STAT ONE Administration Famotidine Confirm 08/21/21 12:06 Famotidine 20 Mg/1 Vial Administered 08/21/21 12:07 Dose 20 mg IV .STK-MED ONE Sodium Chloride Confirm 08/21/21 14:12 Sodium Chloride 0.9% 500 Ml Administered 08/21/21 14:13 Dose 500 mls @ ud IV .STK-MED ONE Nitroglycerin 1 gm 08/21/21 12:09 08/21/21 12:16 Nitroglycerin 1 Gm Packet TOP 08/21/21 12:10 1 gm STAT ONE Administration Nitroglycerin Confirm 08/21/21 12:08 Nitroglycerin 1 Gm Packet Administered 08/21/21 12:09 Dose 1 gm .ROUTE .STK-MED ONE Ondansetron HCl 4 mg 08/21/21 11:44 08/21/21 12:10 Ondansetron Hcl 4 Mg/2 Ml Vial IV 08/21/21 11:45 4 mg STAT ONE Administration Ondansetron HCl Confirm 08/21/21 12:06 Ondansetron Hcl 4 Mg/2 Ml Vial Administered 08/21/21 12:07 Dose 4 mg .ROUTE .STK-MED ONE Pantoprazole Sodium 40 mg 08/21/21 11:42 08/21/21 12:15 Pantoprazole 40 Mg Vial IV 08/21/21 11:43 40 mg STAT ONE Administration Pantoprazole Sodium Confirm 08/21/21 12:06 Pantoprazole 40 Mg Vial Administered 08/21/21 12:07 Dose 40 mg IV .STK-MED ONE Lab/Rad Data: Laboratory Result Diagrams 08/21/21 12:25 08/21/21 12:25 Laboratory Results 08/21/21 08/21/21 08/21/21 Range/Units 12:25 12:25 12:25 WBC (4.0-10.5) x10^3/uL RBC (4.1-5.4) x10^6/uL Hgb (12.0-16.0) g/dL Hct (35-47) % MCV (78-100) fL MCH (26-32) pg MCHC (32-36) g/dL RDW (11.5-14.0) % Plt Count (150-450) x10^3/uL MPV (7.5-11.0) fL PT (9.4-12.5) SECONDS INR (0.8-3.0) Sodium (137-145) mmol/L Potassium (3.5-5.1) mmol/L Chloride (98-107) mmol/L Carbon Dioxide (22-30) mmol/L Anion Gap (5-15) MEQ/L BUN (7-17) mg/dL Creatinine (0.52-1.04) mg/dL Estimated GFR ML/MIN Glucose (74-106) mg/dL Lactic Acid (0.4-2.0) Calcium (8.4-10.2) mg/dL Total Bilirubin (0.2-1.3) mg/dL AST (14-36) U/L ALT (0-35) U/L Alkaline Phosphatase (38-126) U/L Troponin I 0.072 H* (0.000-0.034) ng/mL NT-Pro-B Natriuret Pep 8770 H (0-900) pg/mL Serum Total Protein (6.3-8.2) g/dL Albumin (3.5-5.0) g/dL Amylase (30-110) U/L Lipase (23-300) U/L Serum , Qual NEGATIVE (Negative) 08/21/21 08/21/21 08/21/21 Range/Units 12:25 12:25 12:25 WBC 24.9 H (4.0-10.5) x10^3/uL RBC 5.52 H (4.1-5.4) x10^6/uL Hgb 12.6 (12.0-16.0) g/dL Hct 39.7 (35-47) % MCV 71.9 L (78-100) fL MCH 22.8 L (26-32) pg MCHC 31.7 L (32-36) g/dL RDW 16.0 H (11.5-14.0) % Plt Count 381 (150-450) x10^3/uL MPV 9.1 (7.5-11.0) fL PT 11.7 (9.4-12.5) SECONDS INR 1.11 (0.8-3.0) Sodium 129 L (137-145) mmol/L Potassium 4.0 (3.5-5.1) mmol/L Chloride 99 (98-107) mmol/L Carbon Dioxide 17 L (22-30) mmol/L Anion Gap 17.4 H (5-15) MEQ/L BUN 27 H (7-17) mg/dL Creatinine 0.96 (0.52-1.04) mg/dL Estimated GFR > 60.0 ML/MIN Glucose 204 H (74-106) mg/dL Lactic Acid (0.4-2.0) Calcium 10.1 (8.4-10.2) mg/dL Total Bilirubin 1.50 H (0.2-1.3) mg/dL AST 43 H (14-36) U/L ALT 41 H (0-35) U/L Alkaline Phosphatase 127 H (38-126) U/L Troponin I (0.000-0.034) ng/mL NT-Pro-B Natriuret Pep (0-900) pg/mL Serum Total Protein 7.6 (6.3-8.2) g/dL Albumin 3.9 (3.5-5.0) g/dL Amylase 65 (30-110) U/L Lipase 20 L (23-300) U/L Serum , Qual (Negative) 08/21/21 Range/Units 11:42 WBC (4.0-10.5) x10^3/uL RBC (4.1-5.4) x10^6/uL Hgb (12.0-16.0) g/dL Hct (35-47) % MCV (78-100) fL MCH (26-32) pg MCHC (32-36) g/dL RDW (11.5-14.0) % Plt Count (150-450) x10^3/uL MPV (7.5-11.0) fL PT (9.4-12.5) SECONDS INR (0.8-3.0) Sodium (137-145) mmol/L Potassium (3.5-5.1) mmol/L Chloride (98-107) mmol/L Carbon Dioxide (22-30) mmol/L Anion Gap (5-15) MEQ/L BUN (7-17) mg/dL Creatinine (0.52-1.04) mg/dL Estimated GFR ML/MIN Glucose (74-106) mg/dL Lactic Acid 2.7 H (0.4-2.0) Calcium (8.4-10.2) mg/dL Total Bilirubin (0.2-1.3) mg/dL AST (14-36) U/L ALT (0-35) U/L Alkaline Phosphatase (38-126) U/L Troponin I (0.000-0.034) ng/mL NT-Pro-B Natriuret Pep (0-900) pg/mL Serum Total Protein (6.3-8.2) g/dL Albumin (3.5-5.0) g/dL Amylase (30-110) U/L Lipase (23-300) U/L Serum , Qual (Negative) - Progress Progress: improved, re-examined Progress Note: 08/21/21 12:[address] De Anda for alert and he felt not STEMI and no need for transfer yet. 08/21/21 13:21 Dr. De Anda at [facility] cardio agrees to consult there for pt , now awaiting hospitalist again. 08/21/21 15:03 Dr. Martínez at [facility] accepted pt . Discussed with Dr.: Other (Dr. De Anda and Raina) Will see patient in: hospital (full admit) Counseled pt/family regarding: lab results, diagnosis, need for follow-up, rad results - Departure Departure Disposition: Transfer Clinical Impression: NSTEMI (non-ST elevated myocardial infarction) Condition: Good Critical Care Time: Yes Critical Care Time(excluding separately billable procedures): Critical 30-74 mins (30 minutes for CC time due to bolus for low BP.) Referrals: DOCTOR,NO FAMILY [Primary Care Provider] - Follow up/PCP as directed
[2021-08-21] MEDS ORDERED: Pepcid 20 MG VIAL IV ONE ×2 (11:42→12:06)
[2021-08-21] MEDS ORDERED: PROTONIX 40 MG IV IV ONE ×2 (11:42→12:06)
[2021-08-21] MEDS ORDERED: Zofran 4 MG/2 ML VIAL IV ONE (11:44)
[2021-08-21] MEDS ORDERED: Sodium Chloride 0.9% 1000 ML 1,000 ML IV SCH (11:45)
[2021-08-21] MEDS ORDERED: Zofran 4 MG/2 ML VIAL ONE (12:06)
[2021-08-21] MEDS ORDERED: Sodium Chloride 0.9% 1000 ML 1,000 ML ONE (12:06)
[2021-08-21] MEDS ORDERED: NITRO-BID 2% UD PACKETS ONE (12:08)
[2021-08-21] MEDS ORDERED: NITRO-BID 2% UD PACKETS TOP ONE (12:09)
[2021-08-21] MEDS ORDERED: BABY ASPIRIN 81 MG CHEW PO ONE (12:15)
[2021-08-21 12:28] LABS: Hematocrit 39.7 % (35-47); Hemoglobin 12.6 g/dL (12.0-16.0); Mean Cell Volume 71.9 fL (78-100); Mean Corpuscular Hemoglobin 22.8 pg (26-32); Mean Corpuscular Hgb Concent. 31.7 g/dL (32-36); Mean Platelet Volume 9.1 fL (7.5-11.0); Platelet Count 381 x10^3/uL (150-450); Red Blood Count 5.52 x10^6/uL (4.1-5.4); White Blood Count 24.9 x10^3/uL (4.0-10.5)
[2021-08-21 12:39] LABS: ALBUMIN 3.9 g/dL (3.5-5.0); ALKALINE PHOSPHATASE 127 U/L (38-126); AMYLASE 65 U/L (30-110); ANION GAP 17.4 MEQ/L (5-15); BLOOD UREA NITROGEN 27 mg/dL (7-17); CHLORIDE 99 mmol/L (98-107); Calcium 10.1 mg/dL (8.4-10.2); Carbon Dioxide 17 mmol/L (22-30); Creatinine 1 0.96 mg/dL (0.52-1.04); EST GLOMERULAR FILTRATION RATE > 60.0 ML/MIN; Glucose 204 mg/dL (74-106); LIPASE 20 U/L (23-300); SGOT/AST 43 U/L (14-36); SGPT/ALT 41 U/L (0-35); SODIUM 129 mmol/L (137-145); Total Protein 7.6 g/dL (6.3-8.2)
[2021-08-21 12:41] LABS: INR 1.11 (0.8-3.0); PROTIME 11.7 SECONDS (9.4-12.5)
[2021-08-21] MEDS ORDERED: Sodium Chloride 0.9% 500 ML 500 ML IV ONE ×2 (14:12→14:13)
[2021-08-21 15:04] LABS: ANISOCYTOSIS 1+; BAND 2 % (0.0-2.0); Lymphocytes 4 % (24-44); Monocyte 2 % (0.0-12.0); Platelet Estimate NORMAL (NORMAL); Total Cells Counted 100; Toxic Granulation 1+
[2021-08-21] MEDS ORDERED: ROCEPHIN 1 Gm-D5w 50 ml Bag** 1 G/50 ML IVPB IV STA (15:07)
[2021-08-21] MEDS ORDERED: ROCEPHIN 1 Gm-D5w 50 ml Bag** 1 G/50 ML IVPB IV ONE (15:09)
[2021-08-21 15:16] VITALS: BP 114/80; PULSE 98; O2SAT 100
--- NOTE | 2021-08-21 21:09 | XRAY ---
Indication: Cough and short of breath. Nausea and vomiting. Suspect Covid 19. Comparison: September 302020. Portable chest remains clear again with tiny left base calcified granuloma. Heart not enlarged again with aortic and mitral valve replacement surgery. Bony thorax intact. No new/acute findings.
== END 2021-08-21 16:00 | disposition short-term general hospital (02) ==
LOC: ED 11:20
DX: I21.4 Non-ST elevation (NSTEMI) myocardial infarction (principal); R77.8 Other specified abnormalities of plasma proteins; D72.829 Elevated white blood cell count, unspecified; R11.2 Nausea with vomiting, unspecified; R10.84 Generalized abdominal pain; I10 Essential (primary) hypertension; J44.9 Chronic obstructive pulmonary disease, unspecified; Z79.01 Long term (current) use of anticoagulants; Z79.899 Other long term (current) drug therapy; R50.9 Fever, unspecified
CPT/HCPCS: 36000; 36415; 71045; 80053; 81025; 82150; 83605; 83690; 83880; 84484; 85025; 85610; 93005; 96360; 96365; 96374; 96375; 99285; 99291; J0696; J2405; A9270-GY